=== PATIENT | male | born 1940 | race Caucasian/White ===

== ENCOUNTER 2024-02-10 17:40 | Emergency (ER) | payer MEDICARE, MEDICAID, SELFPAY ==
--- NOTE | ~2024-02-10 | CT_ITS ---
EXAMINATION: CT CHEST WITHOUT CONTRAST CLINICAL INFORMATION: Left-sided rib pain after fall COMPARISON: None available. TECHNIQUE: Multidetector volumetric CT imaging of the chest was done. Axial MIP volume rendering provided. Sagittal and coronal reformatted images were obtained. This CT examination was performed using dose optimization techniques as appropriate, variously including the following: *Automated exposure control *Adjustment of mA and/or kV according to patient size (this includes techniques or standardized protocols for targeted exams where dose is matched to indication/reason for exam; i.e. extremities or head) *Use of iterative reconstruction technique DLP: 333 mGy-cm FINDINGS: PRODUCT LEAD: Surgical clips are present in the upper abdomen. LUNGS: The lungs are clear with no evidence of inflammation or nodules. MEDIASTINUM: The mediastinum is normal. CORONARY ARTERY CALCIFICATION: Mild PLEURA: There is no pleural effusion. No pleural mass or thickening. AXILLA: No lymphadenopathy. UPPER ABDOMEN: Some minimal layering high density is seen at the gallbladder neck which could represent gallstones. Bilateral benign parapelvic Bosniak class I renal cysts are noted which require no additional imaging or follow-up. No solid renal masses are seen. OSSEOUS STRUCTURES: Unremarkable. CT/CT chest wo IV con IMPRESSION: 1. No evidence of a rib fracture. 2. Incidental note made of possible cholelithiasis and benign renal cysts. Fleischner guidelines were followed. Electronically signed by: Narciso Farley MD 02/10/2024 10:29 PM PRINCESS
--- NOTE | ~2024-02-10 | CT_ITS ---
EXAMINATION: CT HEAD WITHOUT CONTRAST CT CERVICAL SPINE WITHOUT CONTRAST CLINICAL INFORMATION: Unwitnessed fall. Head strike. COMPARISON: None available. TECHNIQUE: Contiguous axial imaging was performed from the skull base to vertex without intravenous administration of contrast. Contiguous axial imaging was performed from the upper chest through the skull base without intravenous administration of contrast. Coronal and sagittal reformats were obtained at the acquisition workstation. This CT examination was performed using dose optimization techniques as appropriate, variously including the following: *Automated exposure control. *Adjustment of mA and/or kV according to patient size (this includes techniques or standardized protocols for targeted exams where dose is matched to indication/reason for exam; i.e. extremities or head). *Use of iterative reconstruction technique. DLP: 1496 mGy-cm FINDINGS: Head: Chronic regions of encephalomalacia within the lateral right frontal lobe, parasagittal right occipital lobe, and anterior left temporal lobe with associated volume loss. 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 No additional loss of salguero-white matter differentiation. No evidence of acute intracranial hemorrhage. Scattered and partially confluent hypoattenuation in the periventricular and deep white matter are consistent with moderate microangiopathy. The ventricles are normal in morphology and size. No evidence for obstructive hydrocephalus. No abnormal mass effect or midline shift. No extra-axial fluid collections. No acute soft tissue or osseous abnormalities. Moderate mucosal thickening of the paranasal sinuses. The mastoid air cells and middle ear cavities are clear. Cerumen impaction of the external auditory canals bilaterally. Cervical Spine: The atlantooccipital and atlantoaxial articulations remain well aligned. Straightening of the normal cervical lordosis. Moderate degenerative retrolisthesis of C5 on C6. Otherwise, there is anatomic alignment of the vertebral bodies and posterior elements. No evidence of acute fracture or subluxation. 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 Ankylosis of the right C6-C7 facet joint. Degenerative loss of C4 and C5 vertebral body heights. The remaining vertebral body heights are maintained. Advanced degenerative disc disease at C3-C4 and C5-C6. Facet and uncovertebral joint arthropathy leads to osseous encroachment on the neural foramina from C3-C6. There is no prevertebral soft tissue swelling. There is a 1.8 cm hypoattenuating nodule in the left thyroid lobe. The remaining cervical soft tissues are within normal limits. The lung apices demonstrate no abnormalities. CT/CT head/brain wo IV con IMPRESSION: 1. No evidence of acute intracranial hemorrhage or edematous territorial infarction. 2. Chronic regions of encephalomalacia within the right frontal lobe, right occipital lobe, and anterior left temporal lobe. Moderate underlying microangiopathy and generalized cerebral volume loss. 3. No evidence of acute fracture or traumatic subluxation of the cervical spine. Moderate multilevel degenerative spondyloarthropathy of the cervical spine. 4. There is a 1.8 cm nodule in the left thyroid lobe. Recommend further characterization with thyroid ultrasound. Electronically signed by: Yogi Beltran DO 02/10/2024 09:12 PM [facility]
[2024-02-10 17:51] VITALS: BP 141/69; PULSE 69; O2SAT 100
[2024-02-10 17:56] VITALS: BP 141/69; PULSE 69; RESP 12; TEMP 36; O2SAT 100; BMI 23.0
--- NOTE | 2024-02-10 18:01 | ECG_ITS ---
Test Reason : FALL Blood Pressure : / mmHG Vent. Rate : 068 BPM Atrial Rate : 068 BPM P-R Int : 230 ms QRS Dur : 080 ms QT Int : 384 ms P-R-T Axes : 076 028 059 degrees QTc Int : 408 ms Sinus rhythm with 1st degree A-V block Otherwise normal ECG No previous ECGs available Referred By: Generic ED Physician Electronically Signed By:Jordy Clemons
[2024-02-10 18:38] LABS: Glucose, Whole Blood 128 mg/dL (60-115)
[2024-02-10 20:55] VITALS: BP 167/84; PULSE 71; RESP 16; TEMP 36.4; O2SAT 98
--- NOTE | 2024-02-10 21:19 | ED_ITS ---
HPI - General Adult General Chief complaint: Fall Stated complaint: FALL HEAD STRIK NEG THINNERS PER EMS Time Seen by Provider: 02/10/24 21:19 History of Present Illness ED Provider: Daniel CARRANZA narrative: The patient is an 83-year-old male with a history of significant dementia. He lives at the [facility]. Apparently he had a fall today in which he struck his head and had a small laceration to his occipital scalp. He was sent to the emergency room after the fall. The patient has been in his usual state of health earlier in the day. In fact his family had been visiting with him just a little while before the fall and he had seemed at his baseline. The patient indicates that he has some pain on his left chest. The patient is significantly demented and unable to give any additional history. The patient's son and daughter are at the bedside. The patient is minimally ambulatory at baseline. Related Data Allergies Allergy/AdvReac Type Severity Reaction Status Date / Time No Known Allergies Allergy Verified 02/10/24 18:00 Review of Systems 2 Review of Systems: Yes all other systems are reviewed and are negative [facility] Social History Social History Advance Directives: No Advance Directives Information Provided: No Do you have a plan to hurt others: No Plan Physical Exam ED Vital Signs: Vital Signs - 24 hr 02/10/24 17:56 02/10/24 20:55 Temperature 96.8 F 97.6 F Pulse Rate 69 71 Respiratory Rate 12 16 Blood Pressure 141/69 H 167/84 H Pulse Oximetry 100 98 Oxygen Delivery Method Room Air Room Air BMI result Body Mass Index 23.0 Const Other: The patient is a frail looking older man who was awake and seems alert although he seems quite demented. He does not seem in acute distress. HENMT Other: There is a 3 cm horizontally oriented laceration on the occipital scalp. It is not a very deep wound. It was not bleeding No raccoon eyes or main sign. No facial abnormalities. Mucous membranes are moist. Eyes Other: Pupils are round equal, conjunctivae clear, extraocular movements intact, no ocular trauma Neck Other: No definite C-spine tenderness. Evaluation is complicated by the patient's dementia. He has been wearing a C-collar initially. After removal of the collar he seemed to be moving his neck easily without pain. Chest Other: There is left-sided chest wall tenderness without crepitus or subcutaneous emphysema Resp Effort & Inspection: normal respiratory effort Auscultation: clear to auscultation bilaterally Cardio Rate: regular rate Rhythm: regular rhythm Heart sounds: S1 normal heart sound present and S2 normal heart sound present GI Other: Abdomen is soft and nontender Back/Spine/Pelvis Other: No midline vertebral tenderness in the back Skin Other: There is a 3 cm horizontally oriented fairly shallow laceration on the occipital scalp. No other injuries. The skin is otherwise unremarkable. Neuro Other: The patient is awake and alert. He seems pleasantly demented. Face is symmetrical. Speech is clear. He seems to have symmetrical strength in his extremities. He seems to be quite unsteady on his feet but that is baseline according to his family. Extrem Other: No signs of injury to the extremities Medical Decision Making Medical Decision Making MDM Narrative: The patient is a frail 83-year-old with a history of dementia who lives at a local longterm. He was found on the ground having fallen. He had a scalp laceration. He is complaining of some left-sided chest pain. CT scan of the head and the cervical spine are negative. He has a small laceration on the occipital scalp that was closed with Dermabond. A chest CT was done to evaluate his left-sided chest pain. This shows a single minimally displaced left-sided rib fracture. The patient was given a dose of acetaminophen. Basic labs are unremarkable. He will be discharged back to his longterm. Lab Data 02/10/24 22:50 02/10/24 22:50 Labs: Lab Results 02/10/24 02/10/24 Range/Units 18:34 22:50 WBC 8.7 (4.8-10.8) X10*3/uL RBC 5.11 (4.60-5.80) X10*6/uL Hgb 15.7 (14.0-18.0) g/dl Hct 46.6 (42.0-52.0) % MCV 91.2 (80.0-98.0) fL MCH 30.7 (27.0-33.0) pg MCHC 33.7 (31.0-36.0) g/dl RDW 12.1 (11.0-16.0) % Plt Count 142 L (160-400) X10*3/uL MPV 9.9 (9.4-12.4) fL Immature Gran % (Auto) 0.5 H (0.0-0.4) % Neut % (Auto) 81.7 H (45-73) % Lymph % (Auto) 10.6 L (20-40) % [place] % (Auto) 5.3 (2-11) % Eos % (Auto) 1.3 (0-4) % Baso % (Auto) 0.6 (0-2) % Lymph # (Auto) 0.9 L (1.2-4.9) X10*3/uL [place] # (Auto) 0.5 (0.1-1.2) X10*3/uL Eos # (Auto) 0.1 (0.0-0.4) X10*3/uL Baso # (Auto) 0.1 (0.0-0.2) X10*3/uL Abs Immat Gran (auto) 0.04 H (0.00-0.03) X10*3/uL Absolute Neuts (auto) 7.1 (2.0-8.3) x10*3/uL Absolute Nucleated RBC 0.000 (0.0-0.012) X10*3/uL Nucleated RBC % (auto) 0.0 (0.0-0.2) /100WBC Sodium 139 (135-145) mmol/L Potassium 4.6 (3.3-5.1) mmol/L Chloride 107 (96-108) mmol/L Carbon Dioxide 23 (22-29) mmol/L Anion Gap 14 (12-20) BUN 17 H (9-16) mg/dL Creatinine 0.95 (0.5-1.4) mg/dL Estim Creat Clear Calc 51.2 Estimated GFR > 60 POC Glucose 128 H (60-115) mg/dL Random Glucose 152 H (60-115) mg/dL Calcium 8.9 (8.4-10.2) mg/dL Discharge Plan Discharge Clinical Impression: Fall, Head injury, Laceration of scalp, Left rib fracture Patient Disposition: Home, Self-Care Additional Instructions: He had a negative CT scan of his head and his cervical spine. A CT scan of his chest shows a single left-sided nondisplaced rib fracture. He had a small laceration on the back of his scalp which was closed with glue. He will likely be complaining of some left-sided chest pain from the rib fracture. Please use acetaminophen as needed for the pain. I expect the scalp laceration to heal well without any additional care. Please monitor for any sign of infection. Please have him follow up with his regular doctor. Return to the emergency room if worse. Referrals: [facility] [Outside] (fall, scalp laceration, left rib fracture) Wilma Gan MD [Primary Care Provider] - Print Language: Djiboutian
[2024-02-10 22:53] LABS: MANUAL DIFF FLAG NO
[2024-02-10 22:54] LABS: Basophils Absolute Auto 0.1 X10*3/uL (0.0-0.2); Basophils Percent Auto 0.6 % (0-2); Eosinophils Absolute Auto 0.1 X10*3/uL (0.0-0.4); Eosinophils Percent Auto 1.3 % (0-4); Hematocrit 46.6 % (42.0-52.0); Hemoglobin 15.7 g/dl (14.0-18.0); Imm Gran Abs Auto 0.04 X10*3/uL (0.00-0.03); Imm Gran Pct Auto 0.5 % (0.0-0.4); Lymphocytes Absolute Auto 0.9 X10*3/uL (1.2-4.9); Lymphocytes Percent Auto 10.6 % (20-40); Mean Corpuscular HGB Conc 33.7 g/dl (31.0-36.0); Mean Corpuscular Hemoglobin 30.7 pg (27.0-33.0); Mean Corpuscular Volume 91.2 fL (80.0-98.0); Mean Platelet Volume 9.9 fL (9.4-12.4); Monocytes Absolute Auto 0.5 X10*3/uL (0.1-1.2); Monocytes Percent Auto 5.3 % (2-11); Neutrophils Absolute Auto 7.1 x10*3/uL (2.0-8.3); Neutrophils Percent Auto 81.7 % (45-73); Platelet Count 142 X10*3/uL (160-400); Red Blood Count 5.11 X10*6/uL (4.60-5.80); Red Cell Distribution Width 12.1 % (11.0-16.0); White Blood Count 8.7 X10*3/uL (4.8-10.8)
[2024-02-10 23:08] LABS: Anion Gap 14 (12-20); Blood Urea Nitrogen 17 mg/dL (9-16); Calcium 8.9 mg/dL (8.4-10.2); Carbon Dioxide 23 mmol/L (22-29); Chloride 107 mmol/L (96-108); Creatinine Clr Calc Pharmacy 51.2; Estimated Glomerular Filt Rate > 60; Glucose Random 152 mg/dL (60-115); Potassium 4.6 mmol/L (3.3-5.1); Sodium 139 mmol/L (135-145)
--- NOTE | 2024-02-11 00:07 | PC.NURSE ---
report called to sergei lopez RN. 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
[2024-02-11] MEDS: Acetaminophen 325 MG TABLET 975 MG PO (01:26)
[2024-02-11 01:56] VITALS: BP 123/64; PULSE 74; RESP 16; O2SAT 98
[2024-02-11 02:00] VITALS: BP 123/64; PULSE 74; RESP 16; TEMP 36.4; O2SAT 98
== END 2024-02-11 02:01 | disposition home or self-care (01) ==
PROVIDERS: Emergency Provider Emergency Medicine; PCP Internal Medicine
DX: S09.90XA Unspecified injury of head, initial encounter (principal); S01.01XA Laceration without foreign body of scalp, initial encounter; S22.32XA Fracture of one rib, left side, initial encounter for closed fracture; W19.XXXA Unspecified fall, initial encounter; R07.9 Chest pain, unspecified; F03.90 Unspecified dementia, unspecified severity, without behavioral disturbance, psychotic disturbance, mood disturbance, and anxiety; Y93.9 Activity, unspecified; Y92.129 Unspecified place in nursing home as the place of occurrence of the external cause; Y99.9 Unspecified external cause status
CPT/HCPCS: 12002; 36415; 70450; 71250; 72125; 80048; 82947; 85025; 93005; 99285

== ENCOUNTER → 2024-02-10 18:01 | Outpatient (BNV) | payer MEDICARE, MEDICAID, SELFPAY | PROVIDERS: Emergency Provider Emergency Medicine; PCP Internal Medicine; Visit Provider Internal Medicine Cardiovascular Disease | DX: I44.0 Atrioventricular block, first degree (principal) | CPT/HCPCS: 93010 ==

== ENCOUNTER 2024-06-20 12:36 | Emergency (ER) | payer MEDICARE, MEDICAID, SELFPAY ==
[2024-06-20 12:55] VITALS: BP 107/55; BP 118/58; PULSE 87; PULSE 94; RESP 18; TEMP 36; O2SAT 98; O2SAT 99; BMI 24.2
--- NOTE | 2024-06-20 12:59 | ED_ITS ---
HPI - General Adult General Chief complaint: Behavioral Concerns Stated complaint: COMBATIVE,TOUCHING STAFF/RESIDENTS INAPPROPRI @SNF Time Seen by Provider: 06/20/24 12:53 Source: patient, EMS, old records reviewed and cad technician Mode of arrival: EMS Limitations: no limitations History of Present Illness ED Provider: DR. 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 Patient had similar presentation and was presented to [facility] for behavior disturbance patient was prescribed Seroquel and olanzapine. Patient in the emergency department is redirectable, with no aggression or being combative. Patient is able to report no headache, chest pain, no abdominal pain. Related Data Allergies Allergy/AdvReac Type Severity Reaction Status Date / Time No Known Allergies Allergy Verified 06/20/24 12:57 Review of Systems 2 Review of Systems: All other systems are reviewed and are negative Constitutional: Reports as per HPI and Reports no additional constitutional complaints Eyes: Reports as per HPI and Reports no additional eye complaints Reports system reviewed and no additional complaints, except as documented Cardiovascular: Reports as per HPI and Reports no additional cardiovascular complaints Respiratory: Reports as per HPI and Reports no additional respiratory complaints Gastrointestinal: Reports as per HPI and Reports no additional gastrointestinal complaints Genitourinary: Reports no additional female genitourinary complaints Musculoskeletal: Reports no additional musculoskeletal complaints Skin/Breast: Reports system reviewed and no additional complaints, except as docu Psychiatric: Reports no additional psychiatric complaints Endocrine: Reports no additional endocrine complaints Hematologic/Lymphatic: Reports no additional hematologic/lymphatic complaints Allergic/Immunologic: Reports no additional allergic/immunologic complaints Reports system reviewed and no additional complaints, except as documented and Reports Abnormal speech present [facility] Social History Social History Smoked in Last 30 Days: No Advance Directives: No Advance Directives Information Provided: No Physical Exam ED Vital Signs: Vital Signs - 24 hr 06/20/24 12:55 Temperature 96.8 F Pulse Rate 87 Respiratory Rate 18 Blood Pressure 107/55 L Pulse Oximetry 99 Oxygen Delivery Method Room Air BMI result Body Mass Index 24.2 Vital signs have been reviewed and appear to be correct. Blood pressure elevated. Heart rate normal. Respiratory rate normal. Temperature normal. Oxygen saturation normal. Appearance: Alert. Oriented x1 only place, No acute distress. Head: Normal external exam. Normocephalic. Atraumatic. No Gomez signs noted. No raccoon eyes noted Eyes: PERRLA. EOMI. Conjunctiva and sclera normal. Eyelids normal. ENT: TM's Normal. Pharynx normal. Uvula midline. Moist mucous membranes. No trismus noted. No drooling noted. No muffled voice noted. Neck: Normal inspection. Neck supple. FROM. No adenopathy. Thyroid Normal. No meningeal signs. No neck mass noted. CVS: Normal heart rate and rhythm. Heart sound normal. No murmurs noted. Pulses normal throughout. Respiratory: No respiratory distress. Painless inspiration. Breath sounds normal. No wheezes/rales/rhonchi noted. Chest nontender. No accessory muscle usage noted or decreased air movement noted. Abdomen: Soft and nontender. Bowel sounds normal in all 4 quadrants. No distention noted. No organomegaly noted. No visible injury noted. Back: No CVA tenderness. Full range of motion noted. Skin: Skin warm and dry. Normal skin color. Normal skin turgor. No rashes/lesions/lacerations noted. Extremities: No lower extremity edema. Extremities exhibit normal range of motion. Extremities nontender. Neuro: Oriented X 1 Cranial nerve exam: II-XII are grossly intact No motor deficit. No sensory deficit. Reflexes normal. Course Reevaluation(s) Reevaluation #1: Medically cleared, patient is been calm and redirectable, patient can go back to [facility] to the dementia unit, patient was prescribed PRN olanzapine and Seroquel. Time: 17:07 Medical Decision Making Differential Diagnosis Differential Diagnoses: The differential diagnosis associated with the presentation includes (Dementia, UTI, electrolyte derangement, severe anemia) Admission/Observation Consideration of admission/observation: Escalation of care including admission/observation considered Lab Data MDM Lab Attestation statement: I reviewed the patient's lab results. 06/20/24 13:05 06/20/24 13:05 Labs: Lab Results 06/20/24 06/20/24 Range/Units 13:05 16:28 WBC 4.7 L (4.8-10.8) X10*3/uL RBC 4.66 (4.60-5.80) X10*6/uL Hgb 14.4 (14.0-18.0) g/dl Hct 44.0 (42.0-52.0) % MCV 94.4 (80.0-98.0) fL MCH 30.9 (27.0-33.0) pg MCHC 32.7 (31.0-36.0) g/dl RDW 12.8 (11.0-16.0) % Plt Count 136 L (160-400) X10*3/uL MPV 10.0 (9.4-12.4) fL Immature Gran % (Auto) 0.8 H (0.0-0.4) % Neut % (Auto) 49.8 (45-73) % Lymph % (Auto) 32.3 (20-40) % [place] % (Auto) 9.9 (2-11) % Eos % (Auto) 5.9 H (0-4) % Baso % (Auto) 1.3 (0-2) % Lymph # (Auto) 1.5 (1.2-4.9) X10*3/uL [place] # (Auto) 0.5 (0.1-1.2) X10*3/uL Eos # (Auto) 0.3 (0.0-0.4) X10*3/uL Baso # (Auto) 0.1 (0.0-0.2) X10*3/uL Abs Immat Gran (auto) 0.04 H (0.00-0.03) X10*3/uL Absolute Neuts (auto) 2.4 (2.0-8.3) x10*3/uL Absolute Nucleated RBC 0.000 (0.0-0.012) X10*3/uL Nucleated RBC % (auto) 0.0 (0.0-0.2) /100WBC Sodium 138 (135-145) mmol/L Potassium 4.2 (3.3-5.1) mmol/L Chloride 108 (96-108) mmol/L Carbon Dioxide 22 (22-29) mmol/L Anion Gap 12 (12-20) BUN 19 H (9-16) mg/dL Creatinine 1.00 (0.5-1.4) mg/dL Estim Creat Clear Calc 44.2 Estimated GFR > 60 Random Glucose 217 H (60-115) mg/dL Calcium 8.4 (8.4-10.2) mg/dL Total Bilirubin 0.4 (0.0-1.0) mg/dL Direct Bilirubin 0.1 (0.0-0.5) mg/dL AST 25 (5-37) U/L ALT 19 (0-40) U/L Alkaline Phosphatase 71 (39-117) U/L Total Protein 6.2 L (6.5-8.0) g/dL Albumin 3.3 L (3.5-5.0) g/dL Lipase 28 (8-78) U/L Urine Color Yellow Urine Appearance Clear Urine pH 7.0 (5.0-9.0) Ur Specific [place] 1.025 (1.005-1.025) Urine Protein Negative (Neg-Trace) mg/dL Urine Glucose (UA) 500 H (Negative) mg/dL Urine Ketones Trace (Negative) mg/dL Urine Blood Negative (Negative) Urine Nitrite Negative (Negative) Ur Leukocyte Esterase Negative (Negative) Discharge Plan Discharge Clinical Impression: Dementia, Acute anxiety Patient Disposition: Xfer [facility] Print Language: Kosovan
[2024-06-20 13:09] LABS: MANUAL DIFF FLAG NO
[2024-06-20 13:12] LABS: Basophils Absolute Auto 0.1 X10*3/uL (0.0-0.2); Basophils Percent Auto 1.3 % (0-2); Eosinophils Absolute Auto 0.3 X10*3/uL (0.0-0.4); Eosinophils Percent Auto 5.9 % (0-4); Hemoglobin 14.4 g/dl (14.0-18.0); Imm Gran Abs Auto 0.04 X10*3/uL (0.00-0.03); Imm Gran Pct Auto 0.8 % (0.0-0.4); Lymphocytes Absolute Auto 1.5 X10*3/uL (1.2-4.9); Lymphocytes Percent Auto 32.3 % (20-40); Mean Corpuscular HGB Conc 32.7 g/dl (31.0-36.0); Mean Corpuscular Hemoglobin 30.9 pg (27.0-33.0); Mean Corpuscular Volume 94.4 fL (80.0-98.0); Monocytes Absolute Auto 0.5 X10*3/uL (0.1-1.2); Monocytes Percent Auto 9.9 % (2-11); Neutrophils Absolute Auto 2.4 x10*3/uL (2.0-8.3); Neutrophils Percent Auto 49.8 % (45-73); Platelet Count 136 X10*3/uL (160-400); Red Blood Count 4.66 X10*6/uL (4.60-5.80); Red Cell Distribution Width 12.8 % (11.0-16.0); White Blood Count 4.7 X10*3/uL (4.8-10.8)
[2024-06-20 13:35] LABS: Alanine Aminotransferase 19 U/L (0-40); Albumin Level 3.3 g/dL (3.5-5.0); Alkaline Phosphatase 71 U/L (39-117); Anion Gap 12 (12-20); Aspartate Amino Transferase 25 U/L (5-37); Bilirubin Direct 0.1 mg/dL (0.0-0.5); Bilirubin Total 0.4 mg/dL (0.0-1.0); Blood Urea Nitrogen 19 mg/dL (9-16); Calcium 8.4 mg/dL (8.4-10.2); Carbon Dioxide 22 mmol/L (22-29); Chloride 108 mmol/L (96-108); Creatinine Clr Calc Pharmacy 44.2; Estimated Glomerular Filt Rate > 60; Glucose Random 217 mg/dL (60-115); Lipase 28 U/L (8-78); Potassium 4.2 mmol/L (3.3-5.1); Sodium 138 mmol/L (135-145); Total Protein 6.2 g/dL (6.5-8.0)
--- NOTE | 2024-06-20 13:51 | MHC.EDTECH ---
I place male helga on the patient he tolerated very well, he resting quietly on his bed with the call lao in his reach
--- OUTSIDE RECORDS SUMMARY | 2024-06-20 16:33 | XMS_ITS | Clinical Summary ---
Author Organization [address] [facility] Address [address] [place] [address] Phone Care Team Providers Care Waste Cotton Cleaner Name Role Phone Wilma Gan MD Primary Care Provider [phone] Encounters Date Type Department Care Team Description 06/19/2024 Lab Requisition [facility] - Main Lab 299 [facility] [employer] [place] [address] Aravind Gray MD Type 2 diabetes mellitus without complications (CMS/HCC V24, CMS/HCC V28) from Last 3 Months Social History Tobacco Use Types Packs/Day Years Used Date Smoking Tobacco: Never Assessed Sex and Gender Information Value Date Recorded Sex Assigned at Not on file Legal Sex Male 8:51 PM EST Gender Identity Not on file Sexual Orientation Not on file Plan of Treatment Health Maintenance Due Date Last Done Comments Diabetes: Annual Foot Exam 1950 Diabetes: Annual Retina Eye Exam 1950 DTaP,Tdap,and Td Vaccines (1 - Tdap) 1959 Pneumococcal Vaccine: 50+ Years (1 of 2 - PCV) 1959 Zoster Vaccines (1 of 2) 1990 RSV Immunization Adult Patients (1 - 1-dose 75+ series) 2015 Cholesterol Screening (Lipid Panel) 03/31/2023 Depression Screening 03/31/2023 Falls Risk Assessment 03/31/2023 Medicare Annual Wellness Visit 03/31/2023 Social Influencers of Health Screening 03/31/2023 COVID-19 Vaccine ( - season) 2023 Diabetes: Annual Urine Albumin-Creatinine Ratio (uACR) 06/19/2024 Diabetes: Blood Sugar Control Test (HGBA1C) 07/15/2024 01/16/2024 Influenza Vaccine (Season Ended) 2024 Diabetes: Annual GFR (Glomerular Filtration Rate) 06/19/2025 06/19/2024, 03/05/2024, 01/30/2024, Additional history exists HIB Vaccines Aged Out No longer eligi ble based on patient's age to complete this topic HPV Vaccines Aged Out No longer eligi ble based on patient's age to complete this topic Hepatitis A Vaccines Aged Out No long er eligible based on patient's age to complete this topic Hepatitis B Vaccines Aged Out No long er eligible based on patient's age to complete this topic IPV Vaccines Aged Out No longer eligi ble based on patient's age to complete this topic MMR Vaccines Aged Out No longer eligi ble based on patient's age to complete this topic Meningococcal ACWY Vaccine Aged Out N o longer eligible based on patient's age to complete this topic Meningococcal B Vaccine Aged Out No l onger eligible based on patient's age to complete this topic RSV Immunization Patients Under 20 months Aged Out No longer eligible based on patient's age to complete this topic Varicella Vaccines Aged Out No longer eligible based on patient's age to complete this topic Procedures Procedure Name Priority Date/Time Associated Diagnosis Comments RED - PLAIN Routine 06/19/2024 5:12 AM EDT Type 2 diabetes mellitus without complications (CMS/HCC V24, CMS/HCC V28) VALPROIC ACID LEVEL, TOTAL Routine 06/19/2024 5:12 AM EDT Type 2 diabetes mellitus without complications (CMS/HCC V24, CMS/HCC V28) COMPREHENSIVE METABOLIC PANEL Routine 06/19/2024 5:12 AM EDT Type 2 diabetes mellitus without complications (CMS/HCC V24, CMS/HCC V28) HEMOGLOBIN A1C Routine 01/16/2024 6:54 AM EST Type 2 diabetes mellitus without complications (CMS/HCC) from Last 3 Months or Most Recently Relevant to Health Maintenance Results * Red tube (06/19/2024 5:12 AM EDT) Extra Tube Hold for add-ons. 06/19/2024 11:01 AM EDT [facility] Comment:Auto resulted. Blood Venous blood specimen / Unknown Venipuncture / Unknown 06/19/2024 5:12 AM EDT 06/19/2024 9:33 AM EDT us Aravind Gray MD LAB BLOOD ORDERABLES Final Resul t Performing Organization Address [facility] Co de Phone Number [facility] [address] [place] [address], [place] [phone] * (ABNORMAL) Valproic acid level, total (06/19/2024 5:12 AM EDT) Pathologist [facility] Valproic Acid, Total 31(L) 50 - 100 mcg/mL LAB CHEMISTRY METHOD 06/19/2024 11:22 AM EDT [facility] Blood Venous blood specimen / Unknown Venipuncture / Unknown 06/19/2024 5:12 AM EDT 06/19/2024 9:33 AM EDT us Aravind Gray MD LAB BLOOD ORDERABLES Final Resul t Performing Organization Address [facility] de Phone Number [facility] [address] [place] [address], [place] [phone] * (ABNORMAL) Comprehensive metabolic panel (06/19/2024 5:12 AM EDT) Pathologist [facility] Sodium 138 133 - 145 mmol/L LAB CHEMISTRY METHOD 06/19/2024 11:24 AM EDT [facility] Potassium 4.0 3.5 - 5.5 mmol/L LAB CHEMISTRY METHOD 06/19/2024 11:24 AM EDT [facility] Chloride 107 96 - 110 mmol/L LAB CHEMISTRY METHOD 06/19/2024 11:24 AM EDT [facility] CO2 25 21 - 32 mmol/L LAB CHEMISTRY METHOD 06/19/2024 11:24 AM EDT [facility] Anion Gap 6 3 - 11 LAB CHEMISTRY METHOD 06/19/2024 11:24 AM [facility] Glucose 75 70 - 100 mg/dL LAB CHEMISTRY METHOD 06/19/2024 11:24 AM [facility] BUN 19 5 - 25 mg/dL LAB CHEMISTRY METHOD 06/19/2024 11:24 AM [facility] Creatinine 0.93 0.70 - 1.30 mg/dL LAB CHEMISTRY METHOD 06/19/2024 11:24 AM [facility] eGFR 81 >=60 mL/min/1. 73m2 LAB CHEMISTRY METHOD 06/19/2024 11:24 AM [facility] Comment:Calculation based on the??Chronic Kidney Disease Epidemiology Collaboration (CKD-EPI) equation refit??without adjustment for race. BUN/Creatinine Ratio 20.4 LAB CHEMISTRY METHOD 06/19/2024 11:24 AM [facility] Calcium 8.4(L) 8.5 - 10.5 mg/dL LAB CHEMISTRY METHOD 06/19/2024 11:24 AM [facility] AST (SGOT) 12 10 - 42 unit/L LAB CHEMISTRY METHOD 06/19/2024 11:24 AM [facility] ALT (SGPT) 21 10 - 60 unit/L LAB CHEMISTRY METHOD 06/19/2024 11:24 AM [facility] Alkaline Phosphatase 74 42 - 121 unit/L LAB CHEMISTRY METHOD 06/19/2024 11:24 AM [facility] Total Protein 6.0 6.0 - 8.0 g/dL LAB CHEMISTRY METHOD 06/19/2024 11:24 AM [facility] Albumin 3.0(L) 3.2 - 5.0 g/dL LAB CHEMISTRY METHOD 06/19/2024 11:24 AM [facility] Total Bilirubin 0.5 0.0 - 1.4 mg/dL LAB CHEMISTRY METHOD 06/19/2024 11:24 AM [facility] Blood Venous blood specimen / Unknown Venipuncture / Unknown 06/19/2024 5:12 AM EDT 06/19/2024 9:33 AM EDT us Aravind Gray MD LAB BLOOD ORDERABLES Final Resul t Performing Organization Address [facility]/ZIP Co de Phone Number [facility] [address] [place] [address], [place] [phone] * Hemoglobin A1c (01/16/2024 6:54 AM EST) Hemoglobin A1C 5.4 <6.5 % LAB CHEMISTRY METHOD 01/16/2024 2:48 PM EST [facility] Mean Bld Glu Estim. 108 mg/dL LAB CHEMISTRY METHOD 01/16/2024 2:48 PM EST [facility] Blood Venous blood specimen / Unknown Venipuncture / Unknown 01/16/2024 6:54 AM EST 01/16/2024 8:43 AM EST us Wilma Gan MD LAB BLOOD ORDERABLES Final Res ult Performing Organization Address City/[facility]/ZIP Co de Phone Number [facility] [address] [place] [address], [place] [phone] from Last 3 Months or Most Recently Relevant to Health Maintenance Insurance MEDICARE [place]ICA[place] - [place] Care Teams Waste Cotton Cleaner Relationship Specialty Start Date End Date Wilma Gan MD [address] [place] [phone] PCP - General Internal Medicine 01/26/24
--- OUTSIDE RECORDS SUMMARY | 2024-06-20 16:33 | XMS_ITS | Encounter Summary ---
Author Organization [employer] [facility] Address [address] [place] [id number] Care Team Providers Care Hatchery Employee Name Role Phone Wilma Gan MD Primary Care Provider [phone] Encounter Details Date Type Department Care Team (Latest Contact Info) Description 01/12/2024 Lab Requisition [facility] - Main Lab [address] [facility] [place] [address] Wilma Gan MD [address] [place] [address] [phone] Type 2 diabetes mellitus without complications (CMS/HCC V24, CMS/HCC V28) Social History Tobacco Use Types Packs/Day Years Used Date Smoking Tobacco: Never Assessed Sex and Gender Information Value Date Recorded Sex Assigned at Not on file Legal Sex Male 8:51 PM EST Gender Identity Not on file Sexual Orientation Not on file documented as of this encounter Plan of Treatment Not on file documented as of this encounter Visit Diagnoses Diagnosis Type 2 diabetes mellitus without complications (CMS/HCC V24, CMS/HCC V28) documented in this encounter Care Teams Hatchery Employee Relationship Specialty Start Date End Date Wilma Gan MD [address] [place] [address] [phone] PCP - General Internal Medicine 01/26/24 documented as of this encounter
--- OUTSIDE RECORDS SUMMARY | 2024-06-20 16:33 | XMS_ITS | Encounter Summary ---
Author Organization [employer] Address [address] [place] [address] Care Team Providers Care Machinery Mover Name Role Phone Wilma Gan MD Primary Care Provider [phone] Encounter Details Date Type Department Care Team (Latest Contact Info) Description 01/16/2024 Lab Requisition [facility] - Main Lab [address] [place] [address] Wilma Gan MD [address] [place] [id number] Type 2 diabetes mellitus without complications (CMS/HCC [...] on file documented as of this encounter Procedures Procedure Name Priority Date/Time Associated Diagnosis Comments COMPLETE BLOOD COUNT Routine 01/16/2024 6:54 AM EST Type 2 diabetes mellitus without complications (CMS/HCC) HEMOGLOBIN A1C Routine 01/16/2024 6:54 AM EST Type 2 diabetes mellitus without complications (CMS/HCC) VITAMIN B12 Routine 01/16/2024 6:54 AM EST Type 2 diabetes mellitus without complications (CMS/[facility]) documented in this encounter Results * Hemoglobin A1c (01/16/2024 6:54 AM EST) Hemoglobin A1C 5.4 <6.5 % LAB CHEMISTRY METHOD 01/16/2024 2:48 PM EST [facility] ([facility] Mean Bld Glu Estim. 108 mg/dL LAB CHEMISTRY METHOD 01/16/2024 2:48 PM EST [facility] Blood Venous blood specimen / Unknown Venipuncture / Unknown 01/16/2024 6:54 AM EST 01/16/2024 8:43 AM EST us Wilma Gan MD LAB BLOOD ORDERABLES Final Res ult Performing Organization Address City/[facility]/ZIP Co de Phone Number [facility] [address] [place] [address], [place] [phone] * Vitamin B12 (01/16/2024 6:54 AM EST) [facility] Vitamin B-12 534 250 - 900 pcg/mL LAB CHEMISTRY METHOD 01/16/2024 10:47 AM EST [facility] Blood Venous blood specimen / Unknown Venipuncture / Unknown 01/16/2024 6:54 AM EST 01/16/2024 8:43 AM EST us Wilma Gan MD LAB BLOOD ORDERABLES Final Res ult Performing Organization Address [facility]/ZIP Co de Phone Number [facility] [address] [place] [address], [place] [phone] * (ABNORMAL) Complete blood count (01/16/2024 6:54 AM EST) [facility] WBC 5.3 4.8 - 10.8 K/mcL LAB HEMETOLOGY METHOD 01/16/2024 9:41 AM EST [facility] RBC 4.80 4.50 - 5.50 M/[facility] LAB HEMETOLOGY METHOD 01/16/2024 9:41 AM EST [facility] Hemoglobin 14.9 13.5 - 17.5 g/dL LAB HEMETOLOGY METHOD 01/16/2024 9:41 AM EST [facility] Hematocrit 44.4 42.0 - 54.0 % LAB HEMETOLOGY METHOD 01/16/2024 9:41 AM [facility] MCV 91.7 79.0 - 98.0 FL LAB HEMETOLOGY METHOD 01/16/2024 9:41 AM [facility] MCH 30.8 27.0 - 32.0 pcg LAB HEMETOLOGY METHOD 01/16/2024 9:41 AM [facility] MCHC 33.6 32.0 - 37.0 g/dL LAB HEMETOLOGY METHOD 01/16/2024 9:41 AM [facility] RDW 12.2 11.0 - 15.0 % LAB HEMETOLOGY METHOD 01/16/2024 9:41 AM [facility] Platelets 150 130 - 400 K/mcL LAB HEMETOLOGY METHOD 01/16/2024 9:41 AM [facility] MPV 11.2(H) 7.0 - 11.0 FL LAB HEMETOLOGY METHOD 01/16/2024 9:41 AM [facility] NRBC 0.0 <1.0 % LAB HEMETOLOGY METHOD 01/16/2024 9:41 AM [facility] NRBC Absolute 0.00 <0.10 K/mcL LAB HEMETOLOGY METHOD 01/16/2024 9:41 AM [facility] Blood Venous blood specimen / Unknown Venipuncture / Unknown 01/16/2024 6:54 AM EST 01/16/2024 8:43 AM EST us Wilma Gan MD LAB BLOOD ORDERABLES Final Res ult [facility] [address] [place] [address], documented in this encounter Visit Diagnoses Diagnosis Type 2 diabetes mellitus without complications (CMS/HCC V24, CMS/HCC V28) documented in this encounter Care Teams Machinery Mover Relationship Specialty Start Date End Date Wilma Gan MD [address] [place] [phone] PCP - General Internal Medicine 01/26/24 documented as of this encounter
--- OUTSIDE RECORDS SUMMARY | 2024-06-20 16:33 | XMS_ITS | Encounter Summary ---
Author Organization [facility] Address [address] [place] [address] Care Team Providers Care Senior Editor Name Role Phone Wilma Gan MD Primary Care Provider [phone] Encounter Details Date Type Department Care Team (Late st Contact Info) Description 01/30/[address] [facility] - Main Lab [address] [place] [address] Wilma Gan MD [address] [place] [phone] Chronic kidney disease, stage 3 unspecified (CMS/HCC V24, CMS/HCC V28) Social History Tobacco [...] Associated Diagnosis Comments COMPLETE BLOOD COUNT Routine 01/30/2024 7:21 AM EST Chronic kidney disease, stage 3 unspecified (CMS/HCC) COMPREHENSIVE METABOLIC PANEL Routine 01/30/2024 7:21 AM EST Chronic kidney disease, stage 3 unspecified (CMS/HCC) documented in this encounter Results * (ABNORMAL) Comprehensive metabolic panel (01/30/2024 7:21 AM EST) Sodium 143 133 - 145 mmol/L LAB CHEMISTRY METHOD 01/30/2024 9:05 AM EST [facility] Potassium 4.1 3.5 - 5.5 mmol/L LAB CHEMISTRY METHOD 01/30/2024 9:05 AM [facility] Chloride 113(H) 96 - 110 mmol/L LAB CHEMISTRY METHOD 01/30/2024 9:05 AM [facility] CO2 27 21 - 32 mmol/L LAB CHEMISTRY METHOD 01/30/2024 9:05 AM [facility] Anion Gap 3 3 - 11 LAB CHEMISTRY METHOD 01/30/2024 9:05 AM [facility] Glucose 102(H) 70 - 100 mg/dL LAB CHEMISTRY METHOD 01/30/2024 9:05 AM [facility] BUN 19 5 - 25 mg/dL LAB CHEMISTRY METHOD 01/30/2024 9:05 AM [facility] Creatinine 1.07 0.70 - 1.30 mg/dL LAB CHEMISTRY METHOD 01/30/2024 9:05 AM [facility] eGFR 69 >=60 mL/min/1. 73m2 LAB CHEMISTRY METHOD 01/30/2024 9:05 AM [facility] Comment:Calculation based on the??Chronic Kidney Disease Epidemiology Collaboration (CKD-EPI) equation refit??without adjustment for race. BUN/Creatinine Ratio 17.8 LAB CHEMISTRY METHOD 01/30/2024 9:05 AM [facility] Calcium 8.8 8.5 - 10.5 mg/dL LAB CHEMISTRY METHOD 01/30/2024 9:05 AM [facility] AST (SGOT) 15 10 - 42 unit/L LAB CHEMISTRY METHOD 01/30/2024 9:05 AM [facility] ALT (SGPT) 30 10 - 60 unit/L LAB CHEMISTRY METHOD 01/30/2024 9:05 AM [facility] Alkaline Phosphatase 80 42 - 121 unit/L LAB CHEMISTRY METHOD 01/30/2024 9:05 AM [facility] Total Protein 6.6 6.0 - 8.0 g/dL LAB CHEMISTRY METHOD 01/30/2024 9:05 AM [facility] Albumin 3.3 3.2 - 5.0 g/dL LAB CHEMISTRY METHOD 01/30/2024 9:05 AM [facility] Total Bilirubin 0.5 0.0 - 1.4 mg/dL LAB CHEMISTRY METHOD 01/30/2024 9:05 AM [facility] Blood Venous blood specimen / Unknown Venipuncture / Unknown 01/30/2024 7:21 AM EST 01/30/2024 8:10 AM EST us Wilma Gan MD LAB BLOOD ORDERABLES Final Res ult [facility] [address] [place] [address], [place] [phone] * (ABNORMAL) Complete blood count (01/30/2024 7:21 AM EST) WBC 4.3(L) 4.8 - 10.8 K/mcL LAB HEMETOLOGY METHOD 01/30/2024 8:58 AM [facility] RBC 4.80 4.50 - 5.50 M/[facility] LAB HEMETOLOGY METHOD 01/30/2024 8:58 AM [facility] Hemoglobin 14.4 13.5 - 17.5 g/dL LAB HEMETOLOGY METHOD 01/30/2024 8:58 AM [facility] Hematocrit 44.7 42.0 - 54.0 % LAB HEMETOLOGY METHOD 01/30/2024 8:58 AM [facility] MCV 93.5 79.0 - 98.0 FL LAB HEMETOLOGY METHOD 01/30/2024 8:58 AM [facility] MCH 30.1 27.0 - 32.0 pcg LAB HEMETOLOGY METHOD 01/30/2024 8:58 AM [facility] MCHC 32.2 32.0 - 37.0 g/dL LAB HEMETOLOGY METHOD 01/30/2024 8:58 AM EST [facility] RDW 12.1 11.0 - 15.0 % LAB HEMETOLOGY METHOD 01/30/2024 8:58 AM EST [facility] Platelets 152 130 - 400 K/mcL LAB HEMETOLOGY METHOD 01/30/2024 8:58 AM EST [facility] MPV 10.6 7.0 - 11.0 FL LAB HEMETOLOGY METHOD 01/30/2024 8:58 AM EST [facility] NRBC 0.0 <1.0 % LAB HEMETOLOGY METHOD 01/30/2024 8:58 AM EST [facility] NRBC Absolute 0.00 <0.10 K/mcL LAB HEMETOLOGY METHOD 01/30/2024 8:58 AM [facility] Blood Venous blood specimen / Unknown Venipuncture / Unknown 01/30/2024 7:21 AM EST 01/30/2024 8:10 AM EST us Wilma Gan MD LAB BLOOD ORDERABLES Final Res ult [facility] [address] [place] [address], documented in this encounter Visit Diagnoses Diagnosis Chronic kidney disease, stage 3 unspecified (CMS/HCC V24, CMS/HCC V28) documented in this encounter Care Teams Senior Editor Relationship Specialty Start Date End Date Wilma Gan MD [address] [place] [phone] PCP - General Internal Medicine 01/26/24 documented as of this encounter
--- OUTSIDE RECORDS SUMMARY | 2024-06-20 16:33 | XMS_ITS | Encounter Summary ---
Author Organization [facility] Address [address] [place] [address] Care Team Providers Care Wicker Molded Candles Name Role Phone Wilma Gan MD Primary Care Provider [phone] Encounter Details Date Type Department Care Team (Late st Contact Info) Description 06/19/2024 Lab Requisition [facility] - Main Lab 299 [facility] [place] [address] Aravind Gray MD [address] [place] [address] Type 2 diabetes mellitus without complications (CMS/HCC [...] V24, CMS/HCC V28) documented in this encounter Results * Red tube (06/19/2024 5:12 AM EDT) Extra Tube Hold for add-ons. 06/19/2024 11:01 AM EDT [facility] Comment:Auto resulted. Blood Venous blood specimen / Unknown Venipuncture / Unknown 06/19/2024 5:12 AM EDT 06/19/2024 9:33 AM EDT us Aravind Gray MD LAB BLOOD ORDERABLES Final Resul t Performing Organization Address [facility]/ZIP Co de Phone Number [facility] [address] [place] [address], [place] [phone] * (ABNORMAL) Valproic acid level, total (06/19/2024 5:12 AM EDT) [facility] Valproic Acid, Total 31(L) 50 - 100 mcg/mL LAB CHEMISTRY METHOD 06/19/2024 11:22 AM EDT [facility] Blood Venous blood specimen / Unknown Venipuncture / Unknown 06/19/2024 5:12 AM EDT 06/19/2024 9:33 AM EDT us Aravind Gray MD LAB BLOOD ORDERABLES Final Resul t Performing Organization Address [facility] de Phone Number [facility] [address] [place] [address], [place] [phone] * (ABNORMAL) Comprehensive metabolic panel (06/19/2024 5:12 AM EDT) [facility] Sodium 138 133 - 145 mmol/L LAB CHEMISTRY METHOD 06/19/2024 11:24 AM EDT [facility] Potassium 4.0 3.5 - 5.5 mmol/L LAB CHEMISTRY METHOD 06/19/2024 11:24 AM EDT [facility] Chloride 107 96 - 110 mmol/L LAB CHEMISTRY METHOD 06/19/2024 11:24 AM EDT [facility] CO2 25 21 - 32 mmol/L LAB CHEMISTRY METHOD 06/19/2024 11:24 AM [facility] Anion Gap 6 3 - 11 LAB CHEMISTRY METHOD 06/19/2024 11:24 AM [facility] Glucose 75 70 - 100 mg/dL LAB CHEMISTRY METHOD 06/19/2024 11:24 AM [facility] BUN 19 5 - 25 mg/dL LAB CHEMISTRY METHOD 06/19/2024 11:24 AM [facility] Creatinine 0.93 0.70 - 1.30 mg/dL LAB CHEMISTRY METHOD 06/19/2024 11:24 AM [facility] eGFR 81 >=60 mL/min/1. 73m2 LAB CHEMISTRY METHOD 06/19/2024 11:24 AM [facility] Comment:Calculation based on the??Chronic Kidney Disease Epidemiology Collaboration (CKD-EPI) equation refit??without adjustment for race. BUN/Creatinine Ratio 20.4 LAB CHEMISTRY METHOD 06/19/2024 11:24 AM [facility] Calcium 8.4(L) 8.5 - 10.5 mg/dL LAB CHEMISTRY METHOD 06/19/2024 11:24 AM [facility] AST (SGOT) 12 10 - 42 unit/L LAB CHEMISTRY METHOD 06/19/2024 11:24 AM [facility] ALT (SGPT) 21 10 - 60 unit/L LAB CHEMISTRY METHOD 06/19/2024 11:24 AM [facility] Alkaline Phosphatase 74 42 - 121 unit/L LAB CHEMISTRY METHOD 06/19/2024 11:24 AM [facility] Total Protein 6.0 6.0 - 8.0 g/dL LAB CHEMISTRY METHOD 06/19/2024 11:24 AM [facility] Albumin 3.0(L) 3.2 - 5.0 g/dL LAB CHEMISTRY METHOD 06/19/2024 11:24 AM [facility] Total Bilirubin 0.5 0.0 - 1.4 mg/dL LAB CHEMISTRY METHOD 06/19/2024 11:24 AM EDT [facility] Blood Venous blood specimen / Unknown Venipuncture / Unknown 06/19/2024 5:12 AM EDT 06/19/2024 9:33 AM EDT us Aravind Gray MD LAB BLOOD ORDERABLES Final Resul t [facility] [address] [place] [address], documented in this encounter Visit Diagnoses Diagnosis Type 2 diabetes mellitus without complications (CMS/HCC V24, CMS/HCC V28) documented in this encounter Care Teams Wicker Molded Candles Relationship Specialty Start Date End Date Wilma Gan MD [address] [place] [id number] PCP - General Internal Medicine 01/26/24 documented as of this encounter
--- OUTSIDE RECORDS SUMMARY | 2024-06-20 16:33 | XMS_ITS | Encounter Summary ---
Author Organization [facility] Address [address] [place] [address] Care Team Providers Care Pediatric Physician Assistant Name Role Phone Wilma Gan MD Primary Care Provider [phone] Encounter Details Date Type Department Care Team (Late st Contact Info) Description 01/24/2024 Lab Requisition [facility] - Main Lab [address] [place] [address] Wilma Gan MD [address] [place] [id number] Unspecified abdominal pain Social History Tobacco Use Types Packs/Day Years [...] Procedure Name Priority Date/Time Associated Diagnosis Comments URINALYSIS WITH REFLEX MICROSCOPIC Routine 01/23/2024 10:00 PM EST Unspecified abdominal pain URINALYSIS WITH REFLEX MICROSCOPIC Routine 01/23/2024 10:00 PM EST Unspecified abdominal pain CULTURE URINE Routine 01/23/2024 10:00 PM EST Unspecified abdominal pain documented in this encounter Results * (ABNORMAL) Urinalysis with reflex microscopic (01/23/2024 10:00 PM EST) Specific [place] Urine 1.027 1.003 - 1.030 LAB URINALYSIS - AUTOMATED METHOD 01/24/2024 11:37 AM EST [facility] pH, Urine 6.0 5.0 - 8.0 pH LAB URINALYSIS - AUTOMATED METHOD 01/24/2024 11:37 AM [facility] Leukocytes, Urine Large(A) Negative LAB URINALYSIS - AUTOMATED METHOD 01/24/2024 11:37 AM [facility] Nitrite, Urine Positive(A) Negative LAB URINALYSIS - AUTOMATED METHOD 01/24/2024 11:37 AM [facility] Protein, Urine 30(A) <=Trace mg/dL LAB URINALYSIS - AUTOMATED METHOD 01/24/2024 11:37 AM [facility] Glucose, Urine Negative Negative mg/dL LAB URINALYSIS - AUTOMATED METHOD 01/24/2024 11:37 AM [facility] Ketones, Urine Trace(A) Negative mg/dL LAB URINALYSIS - AUTOMATED METHOD 01/24/2024 11:37 AM [facility] Urobilinogen , Urine 0.2 0.2 - 1.0 mg/dL LAB URINALYSIS - AUTOMATED METHOD 01/24/2024 11:37 AM [facility] Bilirubin, Urine Negative Negative LAB URINALYSIS - AUTOMATED METHOD 01/24/2024 11:37 AM [facility] Blood, Urine Small(A) Negative LAB URINALYSIS - AUTOMATED METHOD 01/24/2024 11:37 AM [facility] RBC, Urine 10.2(H) 0 - 4 /HPF LAB URINALYSIS - AUTOMATED METHOD 01/24/2024 11:37 AM [facility] WBC, Urine 273.1(H) 0 - 4 /HPF LAB URINALYSIS - AUTOMATED METHOD 01/24/2024 11:37 AM [facility] Squamous Epithelial, Urine 4 0 - 60 /LPF LAB URINALYSIS - AUTOMATED METHOD 01/24/2024 11:37 AM [facility] Bacteria, Urine Many(A) Negative /HPF LAB URINALYSIS - AUTOMATED METHOD 01/24/2024 11:37 AM [facility] Hyaline Casts, Urine 1.2 0 - 3 /LPF LAB URINALYSIS - AUTOMATED METHOD 01/24/2024 11:37 AM EST [facility] LAB Urine Urine specimen obtained by clean catch procedure / Unknown Non-blood Collection / Unknown 01/23/2024 10:00 PM EST 01/24/2024 11:04 AM EST us Wilma Gan MD LAB URINE ORDERABLES Final Res ult [facility] [address] [place] [address], * (ABNORMAL) Culture urine (01/23/2024 10:00 PM EST) Culture, Urine >100,000 CFU/mL Escherichia coli(A) OBI 01/26/2024 12:25 PM EST [facility] Urine Urine specimen obtained by clean catch procedure / Unknown Non-blood Collection / Unknown 01/23/2024 10:00 PM EST 01/24/2024 11:04 AM EST Narrative Organism Antibiotic Method Susceptibility Escherichia coli Amoxicillin/Clavulanate OBI <=2 ug/ml: Susceptible Escherichia coli Ampicillin/Sulbactam OBI <=2 ug/ml: Susceptible Escherichia coli Piperacillin/Tazobactam OBI <=4 ug/ml: Susceptible Escherichia coli Cefazolin (Urine) OBI <=1 ug/ml: Susceptible Escherichia coli Cefoxitin OBI <=4 ug/ml: Susceptible Escherichia coli Ceftazidime OBI <=0.5 ug/ml: Susceptible Escherichia coli Ceftriaxone OBI <=0.25 ug/ml: Susceptible Escherichia coli Cefepime OBI <=0.12 ug/ml: Susceptible Escherichia coli Meropenem OBI <=0.25 ug/ml: Susceptible Escherichia coli Amikacin OBI 2 ug/ml: Susceptible Escherichia coli Gentamicin OBI <=1 ug/ml: Susceptible Escherichia coli Ciprofloxacin OBI <=0.06 ug/ml: Susceptible Escherichia coli Levofloxacin OBI <=0.12 ug/ml: Susceptible Escherichia coli Nitrofurantoin OBI <=16 ug/ml: Susceptible Escherichia coli Trimethoprim/Sulfamethoxazole OBI <=20 ug/ml: Susceptible us Wilma Gan MD LAB MICROBIOLOGY - GENERAL ORD ERABLES Final Result [facility] ([facility]) [facility] [address] [place] [address], documented in this encounter Visit Diagnoses Diagnosis Unspecified abdominal pain documented in this encounter Care Teams Pediatric Physician Assistant Relationship Specialty Start Date End Date Wilma Gan MD [address] [place] [id number] PCP - General Internal Medicine 01/26/24 documented as of this encounter
--- OUTSIDE RECORDS SUMMARY | 2024-06-20 16:33 | XMS_ITS | Encounter Summary ---
Author Organization [facility] Address [address] [place] [address] Care Team Providers Care Patient Monitor Name Role Phone Wilma Gan MD Primary Care Provider [phone] Encounter Details Date Type Department Care Team (Latest Contact Info) Description 01/26/2024 Lab Requisition [facility] - Main Lab [address] [place] [address] Wilma Gan MD [address] [place] [id number] Type 2 diabetes mellitus without complications (CMS/HCC [...] Associated Diagnosis Comments COMPLETE BLOOD COUNT Routine 01/26/2024 8:14 AM EST Type 2 diabetes mellitus without complications (CMS/HCC) BASIC METABOLIC PANEL Routine 01/26/2024 8:14 AM EST Type 2 diabetes mellitus without complications (CMS/HCC) documented in this encounter Results * (ABNORMAL) Basic metabolic panel (01/26/2024 8:14 AM EST) Sodium 140 133 - 145 mmol/L LAB CHEMISTRY METHOD 01/26/2024 10:33 AM EST [facility] Potassium 4.8 3.5 - 5.5 mmol/L LAB CHEMISTRY METHOD 01/26/2024 10:33 AM EST [facility] LAB Comment:Hemolysis present Chloride 112(H) 96 - 110 mmol/L LAB CHEMISTRY METHOD 01/26/2024 10:33 AM [facility] CO2 22 21 - 32 mmol/L LAB CHEMISTRY METHOD 01/26/2024 10:33 AM [facility] Anion Gap 6 3 - 11 LAB CHEMISTRY METHOD 01/26/2024 10:33 AM [facility] LAB Glucose 87 70 - 100 mg/dL LAB CHEMISTRY METHOD 01/26/2024 10:33 AM [facility] BUN 19 5 - 25 mg/dL LAB CHEMISTRY METHOD 01/26/2024 10:33 AM [facility] Creatinine 1.00 0.70 - 1.30 mg/dL LAB CHEMISTRY METHOD 01/26/2024 10:33 AM [facility] LAB eGFR 75 >=60 mL/min/1. 73m2 LAB CHEMISTRY METHOD 01/26/2024 10:33 AM [facility] LAB Comment:Calculation based on the??Chronic Kidney Disease Epidemiology Collaboration (CKD-EPI) equation refit??without adjustment for race. BUN/Creatinine Ratio 19.0 LAB CHEMISTRY METHOD 01/26/2024 10:33 AM [facility] Calcium 8.7 8.5 - 10.5 mg/dL LAB CHEMISTRY METHOD 01/26/2024 10:33 AM [facility] Blood Venous blood specimen / Unknown Venipuncture / Unknown 01/26/2024 8:14 AM EST 01/26/2024 9:21 AM EST us Wilma Gan MD LAB BLOOD ORDERABLES Final Res ult [facility] [address] [place] [address], [place] [phone] * (ABNORMAL) Complete blood count (01/26/2024 8:14 AM EST) WBC 4.4(L) 4.8 - 10.8 K/mcL LAB HEMETOLOGY METHOD 01/26/2024 10:34 AM [facility] RBC 4.90 4.50 - 5.50 M/mcL LAB HEMETOLOGY METHOD 01/26/2024 10:34 AM [facility] Hemoglobin 14.9 13.5 - 17.5 g/dL LAB HEMETOLOGY METHOD 01/26/2024 10:34 AM [facility] Hematocrit 49.5 42.0 - 54.0 % LAB HEMETOLOGY METHOD 01/26/2024 10:34 AM [facility] MCV 101.9(H) 79.0 - 98.0 FL LAB HEMETOLOGY METHOD 01/26/2024 10:34 AM [facility] MCH 30.7 27.0 - 32.0 pcg LAB HEMETOLOGY METHOD 01/26/2024 10:34 AM [facility] MCHC 30.1(L) 32.0 - 37.0 g/dL LAB HEMETOLOGY METHOD 01/26/2024 10:34 AM [facility] RDW 12.6 11.0 - 15.0 % LAB HEMETOLOGY METHOD 01/26/2024 10:34 AM [facility] LAB Platelets 194 130 - 400 K/mcL LAB HEMETOLOGY METHOD 01/26/2024 10:34 AM [facility] LAB MPV 11.3(H) 7.0 - 11.0 FL LAB HEMETOLOGY METHOD 01/26/2024 10:34 AM [facility] NRBC 0.0 <1.0 % LAB HEMETOLOGY METHOD 01/26/2024 10:34 AM [facility] LAB NRBC Absolute 0.00 <0.10 K/mcL LAB HEMETOLOGY METHOD 01/26/2024 10:34 AM [facility] Blood Venous blood specimen / Unknown Venipuncture / Unknown 01/26/2024 8:14 AM EST 01/26/2024 9:21 AM EST Wilma Gan MD LAB BLOOD ORDERABLES Final Res ult [facility] ([facility]) [facility] [address] [place] [address], documented in this encounter Visit Diagnoses Diagnosis Type 2 diabetes mellitus without complications (CMS/HCC V24, CMS/HCC V28) documented in this encounter Care Teams Patient Monitor Relationship Specialty Start Date End Date Wilma Gan MD [address] [place] [phone] PCP - General Internal Medicine 01/26/24 documented as of this encounter
--- OUTSIDE RECORDS SUMMARY | 2024-06-20 16:33 | XMS_ITS | Encounter Summary ---
Author Organization [facility] Address [address] [place] [address] Care Team Providers Care Supervisor Uranium Processing Name Role Phone Wilma Gan MD Primary Care Provider [phone] Encounter Details Date Type Department Care Team (Late st Contact Info) Description 03/05/2024 Lab Requisition [facility] - Main Lab [address] [facility] [place] [address] Aravind Gray MD [address] [place] [address] Type 2 diabetes mellitus without complications (CMS/HCC [...] Associated Diagnosis Comments COMPLETE BLOOD COUNT Routine 03/05/2024 4:31 PM EST Type 2 diabetes mellitus without complications (CMS/HCC) BASIC METABOLIC PANEL Routine 03/05/2024 4:31 PM EST Type 2 diabetes mellitus without complications (CMS/HCC) documented in this encounter Results * (ABNORMAL) Basic metabolic panel (03/05/2024 4:31 PM EST) Sodium 140 133 - 145 mmol/L LAB CHEMISTRY METHOD 03/05/2024 6:08 PM EST [facility] Potassium 4.1 3.5 - 5.5 mmol/L LAB CHEMISTRY METHOD 03/05/2024 6:08 PM EST [facility] Chloride 109 96 - 110 mmol/L LAB CHEMISTRY METHOD 03/05/2024 6:08 PM [facility] LAB CO2 26 21 - 32 mmol/L LAB CHEMISTRY METHOD 03/05/2024 6:08 PM [facility] Anion Gap 5 3 - 11 LAB CHEMISTRY METHOD 03/05/2024 6:08 PM [facility] LAB Glucose 112(H) 70 - 100 mg/dL LAB CHEMISTRY METHOD 03/05/2024 6:08 PM [facility] BUN 26(H) 5 - 25 mg/dL LAB CHEMISTRY METHOD 03/05/2024 6:08 PM [facility] LAB Creatinine 1.12 0.70 - 1.30 mg/dL LAB CHEMISTRY METHOD 03/05/2024 6:08 PM [facility] LAB eGFR 65 >=60 mL/min/1. 73m2 LAB CHEMISTRY METHOD 03/05/2024 6:08 PM [facility] LAB Comment:Calculation based on the??Chronic Kidney Disease Epidemiology Collaboration (CKD-EPI) equation refit??without adjustment for race. BUN/Creatinine Ratio 23.2 LAB CHEMISTRY METHOD 03/05/2024 6:08 PM [facility] Calcium 9.3 8.5 - 10.5 mg/dL LAB CHEMISTRY METHOD 03/05/2024 6:08 PM [facility] LAB Blood Venous blood specimen / Unknown Venipuncture / Unknown 03/05/2024 4:31 PM EST 03/05/2024 5:32 PM EST us Aravind Gray MD LAB BLOOD ORDERABLES Final Resul t [facility] [address] [place] [address], [place] [phone] * Complete blood count (03/05/2024 4:31 PM EST) WBC 6.5 4.8 - 10.8 K/mcL LAB HEMETOLOGY METHOD 03/05/2024 5:56 PM [facility] RBC 5.30 4.50 - 5.50 M/mcL LAB HEMETOLOGY METHOD 03/05/2024 5:56 PM [facility] LAB Hemoglobin 15.9 13.5 - 17.5 g/dL LAB HEMETOLOGY METHOD 03/05/2024 5:56 PM [facility] LAB Hematocrit 49.3 42.0 - 54.0 % LAB HEMETOLOGY METHOD 03/05/2024 5:56 PM [facility] LAB MCV 93.9 79.0 - 98.0 FL LAB HEMETOLOGY METHOD 03/05/2024 5:56 PM [facility] LAB MCH 30.3 27.0 - 32.0 pcg LAB HEMETOLOGY METHOD 03/05/2024 5:56 PM [facility] LAB MCHC 32.3 32.0 - 37.0 g/dL LAB HEMETOLOGY METHOD 03/05/2024 5:56 PM [facility] LAB RDW 11.9 11.0 - 15.0 % LAB HEMETOLOGY METHOD 03/05/2024 5:56 PM [facility] LAB Platelets 199 130 - 400 K/mcL LAB HEMETOLOGY METHOD 03/05/2024 5:56 PM [facility] LAB MPV 10.4 7.0 - 11.0 FL LAB HEMETOLOGY METHOD 03/05/2024 5:56 PM [facility] LAB NRBC 0.0 <1.0 % LAB HEMETOLOGY METHOD 03/05/2024 5:56 PM [facility] LAB NRBC Absolute 0.00 <0.10 K/mcL LAB HEMETOLOGY METHOD 03/05/2024 5:56 PM [facility] LAB Blood Venous blood specimen / Unknown Venipuncture / Unknown 03/05/2024 4:31 PM EST 03/05/2024 5:32 PM EST Aravind Gray MD LAB BLOOD ORDERABLES Final Resul t [facility] ([facility]) [facility] [address] [place] [address], documented in this encounter Visit Diagnoses Diagnosis Type 2 diabetes mellitus without complications (CMS/HCC V24, CMS/HCC V28) documented in this encounter Care Teams Supervisor Uranium Processing Relationship Specialty Start Date End Date Wilma Gan MD [address] [place] [id number] PCP - General Internal Medicine 01/26/24 documented as of this encounter
[2024-06-20 16:38] LABS: Appearance Urine Clear; Color Urine Yellow; Glucose Urine UA 500 mg/dL (Negative); Leukocyte Esterase Urine Negative (Negative); Nitrite Urine Negative (Negative); Specific Gravity - Urine 1.025 (1.005-1.025); Urine Blood Negative (Negative); Urine Ketones Trace mg/dL (Negative); Urine Protein Negative (Neg-Trace)
[2024-06-20 17:04] VITALS: BP 141/68; PULSE 87; RESP 18; O2SAT 98
--- NOTE | 2024-06-20 17:41 | PC.NURSE ---
pt has not had any behavioral issues while in the ED. no aggression, no inappropriate behavior. call made out to [facility] dementia unit give report to RN for transfer back to facility. no answer after several minutes. will try again
--- NOTE | 2024-06-20 18:23 | PC.NURSE ---
multiple phone calls made to [facility]. transferred by US at multiple times to nursing floor and no one picks up for several minutes
[2024-06-20 20:01] VITALS: BP 141/68; PULSE 87; RESP 18; TEMP 36; O2SAT 98
== END 2024-06-20 20:01 | disposition skilled nursing facility (03) ==
PROVIDERS: Emergency Provider Emergency Medicine
DX: F03.911 Unspecified dementia, unspecified severity, with agitation (principal); F41.9 Anxiety disorder, unspecified
CPT/HCPCS: 36415; 80048; 80076; 81003; 83690; 85025; 99283; 99284

== ENCOUNTER 2025-02-07 09:45 | Outpatient (RCR) | payer MEDICARE, MEDICAID, SELFPAY | END 2025-02-07 16:29 | disposition home or self-care (01) | LOC: HO.WCC 09:45 | PROVIDERS: Visit Provider Surgery Vascular Surgery | DX: E11.621 Type 2 diabetes mellitus with foot ulcer (principal); E11.51 Type 2 diabetes mellitus with diabetic peripheral angiopathy without gangrene; I70.245 Atherosclerosis of native arteries of left leg with ulceration of other part of foot; L97.522 Non-pressure chronic ulcer of other part of left foot with fat layer exposed; F01.53 Vascular dementia, unspecified severity, with mood disturbance; M24.562 Contracture, left knee; N18.9 Chronic kidney disease, unspecified | CPT/HCPCS: 99213 ==

== ENCOUNTER 2025-02-26 10:15 | Outpatient (REF) | payer MEDICARE, MEDICAID, SELFPAY ==
--- OUTSIDE RECORDS SUMMARY | 2025-02-24 12:52 | XMS_ITS | Continuity of Care Document ---
Author Organization [facility] ter Address [address] [place] [id number]- Care Team Providers Care Associate Research Scientist Name Role Phone Laurent PEREZ, Azalea Primary Care Physician [facility] [id number] Date(s): 02/14/25 - 02/24/[address] [address]- Encounter Diagnosis Osteomyelitis(Final) - 02/15/25 Septic arthritis(Final) - 02/15/25 Discharge Disposition: Transferred to short-term general hospit Attending Physician: Mary Love MD Admitting Physician: Chace Pinon MD Referring Physician: Not on Staff, Referring MD Encounter Type: Disch IP Allergies, Adverse Reactions, Alerts No Known Medication Allergies Functional Status Functional Status Assessment Assessment Assessment Component Result Effecti ve Date Dimitrios scale total score 17 Functional Status Assessment Assessment Assessment Component Result Effecti ve Date Dimitrios scale total score 18 Functional Status Assessment Assessment Assessment Component Result Effecti ve Date Total Falls Risk Score 19 02/23 Functional Status Assessment Assessment Assessment Component Result Effecti ve Date Dimitrios scale total score 14 Functional Status Assessment Assessment Assessment Component Result Effecti ve Date Unspecifed Functional Status Assessment Skin abnormality typ e (observable entity) Surgical incision 02/23/25 Functional Status Assessment Assessment Assessment Component Result Effecti ve Date Unspecifed Functional Status Assessment Skin abnormality typ e (observable entity) Surgical incision 02/23/25 Functional Status Assessment Assessment Assessment Component Result Effecti ve Date Total Falls Risk Score 32 02/23 Functional Status Assessment Assessment Assessment Component Result Effecti ve Date Unspecifed Functional Status Assessment Skin abnormality typ e (observable entity) Surgical incision 02/23/25 Functional Status Assessment Assessment Assessment Component Result Effecti ve Date Total Falls Risk Score 51 02/22 Immunizations Given and Recorded Vaccine Date Status Refusal Reason SARS-CoV-2 (COVID-19) mRNA-1273 vaccine 06/12/20 R ecorded SARS-CoV-2 (COVID-19) mRNA-1273 vaccine 05/14/20 R ecorded Medications Ativan 0.5 mg oral tablet 1 tablet = 0.5 mg, By Mouth, Daily, Prior to showers & AM care, 0 Refills, Maintenance, 02/14/25 5:54:00 PM EST, Partial fill upon patient request if the prescription is for a schedule II opioid drug. Start Date: 02/14/25 Status: Ordered Medication Dispense Status: Completed Total Allowed Fills: 1 Fills Dispensed: 0 betamethasone topical dipropionate 0.05% cream 1 application, Topically, Daily, 0 Refills, Maintenance, 02/14/25 5:49:00 PM EST, Partial fill uponpatient request if the prescription is for a schedule II opioid drug. Start Date: 02/14/25 Status: Ordered Medication Dispense Status: Completed Total Allowed Fills: 1 Fills Dispensed: 0 carBAMazepine 100 mg oral tablet, chewable 200 mg, 2, tablet, Chew, Daily at bedtime, Refills 0, Maintenance, 02/14/25 5:49:00 PM EST, Partialfill upon patient request if the prescription is for a schedule II opioid drug. Start Date: 02/14/25 Status: Ordered Medication Dispense Status: Completed Total Allowed Fills: 1 Fills Dispensed: 0 carBAMazepine 100 mg oral tablet, chewable 100 mg, 1, tablet, Chew, Daily, Refills 0, Maintenance, 02/14/25 5:49:00 PM EST, Partial fill upon patient request if the prescription is for a schedule II opioid drug. Start Date: 02/14/25 Status: Ordered Medication Dispense Status: Completed Total Allowed Fills: 1 Fills Dispensed: 0 carboxymethylcellulose 1 drops, Eyes, Both, 4 times a day, 0.25% Eye Drops, 0 Refills, Maintenance, 02/14/25 5:50:00 PM EST, Partial fill upon patient request if the prescription is for a schedule II opioid drug. Start Date: 02/14/25 Status: Ordered Medication Dispense Status: Completed Total Allowed Fills: 1 Fills Dispensed: 0 CeleBREX 100 mg oral capsule 1 capsule = 100 mg, By Mouth, 2 times a day, 0 Refills, Maintenance, 02/14/25 5:52:00 PM EST, Partial fill upon patient request if the prescription is for a schedule II opioid drug. Start Date: 02/14/25 Status: Ordered Medication Dispense Status: Completed Total Allowed Fills: 1 Fills Dispensed: 0 cholestyramine 4 g/4.8 g oral powder for reconstitution = 4 Gm, By Mouth, Daily, 0 Refills, Maintenance, 02/14/25 5:52:00 PM EST, Partial fill upon patientrequest if the prescription is for a schedule II opioid drug. Start Date: 02/14/25 Status: Ordered Medication Dispense Status: Completed Total Allowed Fills: 1 Fills Dispensed: 0 collagenase topical 250 u/gm ointment 1 applicator, Topically, Daily, 0 Refills, Maintenance, 02/14/25 5:53:00 PM EST, Partial fill upon patient request if the prescription is for a schedule II opioid drug. Start Date: 02/14/25 Status: Ordered Medication Dispense Status: Completed Total Allowed Fills: 1 Fills Dispensed: 0 Dilaudid 2 mg oral tablet 1 tablet = 2 mg, By Mouth, Daily, Prior to wound care, 0 Refills, Maintenance, 02/14/25 5:53:00 PM EST, Partial fill upon patient request if the prescription is for a schedule II opioid drug. Start Date: 02/14/25 Status: Ordered Medication Dispense Status: Completed Total Allowed Fills: 1 Fills Dispensed: 0 Dilaudid 2 mg oral tablet 1 tablet = 2 mg, By Mouth, Every 8 hours, PRN Pain , Severe, 0 Refills, Maintenance, 02/14/25 5:57:00 PM EST, Partial fill upon patient request if the prescription is for a schedule II opioid drug. Start Date: 02/14/25 Status: Ordered Medication Dispense Status: Completed Total Allowed Fills: 1 Fills Dispensed: 0 Dulcolax 10 mg rectal suppository 1 supp = 10 mg, Rectally, Daily, PRN as needed for constipation, 0 Refills, Maintenance, 02/14/25 5:56:00 PM EST, Partial fill upon patient request if the prescription is for a schedule II opioid drug. Start Date: 02/14/25 Status: Ordered Medication Dispense Status: Completed Total Allowed Fills: 1 Fills Dispensed: 0 Fleet Enema 19 gm-7 gm rectal enema 1 each, Rectally, Daily, PRN as needed for constipation, 0 Refills, Maintenance, 02/14/25 5:56:00 PM EST, Partial fill upon patient request if the prescription is for a schedule II opioid drug. Start Date: 02/14/25 Status: Ordered Medication Dispense Status: Completed Total Allowed Fills: 1 Fills Dispensed: 0 Alley-Tussin Expectorant 100 mg/5 mL oral liquid 10 mL = 200 mg, By Mouth, Every 4 hours, PRN Cough and Congestion, 0 Refills, Maintenance, :57:00 PM EST, Partial fill upon patient request if the prescription is for a schedule II opioid drug. Start Date: 02/14/25 Status: Ordered Medication Dispense Status: Completed Total Allowed Fills: 1 Fills Dispensed: 0 Lexapro 5 mg oral tablet 2 tablet = 10 mg, By Mouth, Daily, 0 Refills, Maintenance, 02/14/25 5:53:00 PM EST, Partial fill upon patient request if the prescription is for a schedule II opioid drug. Start Date: 02/14/25 Status: Ordered Medication Dispense Status: Completed Total Allowed Fills: 1 Fills Dispensed: 0 Lidocaine 2% Topical 1 application, Topically, Daily, PRN Pain , Moderate, 0 Refills, Maintenance Start Date: 02/14/25 Status: Ordered Medication Dispense Status: Completed Total Allowed Fills: 1 Fills Dispensed: 0 loperamide 2 mg oral capsule 2 mg, 1, capsule, By Mouth, 2 times a day, Refills 0, Maintenance, 02/14/25 5:54:00 PM EST, Partialfill upon patient request if the prescription is for a schedule II opioid drug. Start Date: 02/14/25 Status: Ordered Medication Dispense Status: Completed Total Allowed Fills: 1 Fills Dispensed: 0 menthol-methyl salicylate 10%-15% topical cream 1 applicator, Topically, Daily, Applied to bilateral Knees and Left shoulder, 0 Refills, Maintenance, 02/14/25 5:55:00 PM EST, Partial fill upon patient request if the prescription is for a schedule II opioid drug. Start Date: 02/14/25 Status: Ordered Medication Dispense Status: Completed Total Allowed Fills: 1 Fills Dispensed: 0 Milk of Magnesia 1200 mg/15 mL oral liquid 30 mL = 2,400 mg, By Mouth, Daily, PRN Constipation, 0 Refills, Maintenance, 02/14/25 5:58:00 PM EST, Partial fill upon patient request if the prescription is for a schedule II opioid drug. Start Date: 02/14/25 Status: Ordered Medication Dispense Status: Completed Total Allowed Fills: 1 Fills Dispensed: 0 nalOXONE 0.4 mg/mL injectable solution 1 mL = 0.4 mg, Intramuscular, Once, PRN As Needed, 0 Refills, Maintenance, 02/14/25 5:58:00 PM EST,Partial fill upon patient request if the prescription is for a schedule II opioid drug. Start Date: 02/14/25 Status: Ordered Medication Dispense Status: Completed Total Allowed Fills: 1 Fills Dispensed: 0 ondansetron 2 mg/mL injectable solution 2 mL = 4 mg, IV Infusion, Every 8 hours, PRN Nausea & Vomiting, 0 Refills, Maintenance, 02/14/25 5:59:00 PM EST, Partial fill upon patient request if the prescription is for a schedule II opioid drug. Start Date: 02/14/25 Status: Ordered Medication Dispense Status: Completed Total Allowed Fills: 1 Fills Dispensed: 0 ondansetron 4 mg oral tablet 1 tablet = 4 mg, By Mouth, Every 8 hours, PRN Nausea & Vomiting, 0 Refills, Maintenance, 02/14/25 5:59:00 PM EST, Partial fill upon patient request if the prescription is for a schedule II opioiddrug. Start Date: 02/14/25 Status: Ordered Medication Dispense Status: Completed Total Allowed Fills: 1 Fills Dispensed: 0 prochlorperazine 25 mg rectal suppository 1 supp = 25 mg, Rectally, Every 8 hours, PRN Nausea & Vomiting, 0 Refills, Maintenance, 02/14/25 6:01:00 PM EST, Partial fill upon patient request if the prescription is for a schedule II opioid drug. Start Date: 02/14/25 Status: Ordered Medication Dispense Status: Completed Total Allowed Fills: 1 Fills Dispensed: 0 prochlorperazine 5 mg oral tablet 2 tablet = 10 mg, By Mouth, Every 8 hours, PRN Nausea & Vomiting, 0 Refills, Maintenance, 02/14/25 6:00:00 PM EST, Partial fill upon patient request if the prescription is for a schedule II opioid drug. Start Date: 02/14/25 Status: Ordered Medication Dispense Status: Completed Total Allowed Fills: 1 Fills Dispensed: 0 prochlorperazine 5 mg/mL injectable solution 2 mL = 10 mg, Intramuscular, Every 8 hours, PRN as needed for nausea/vomiting, 0 Refills, Maintenance, 02/14/25 6:00:00 PM EST, Partial fill upon patient request if the prescription is for a scheduleII opioid drug. Start Date: 02/14/25 Status: Ordered Medication Dispense Status: Completed Total Allowed Fills: 1 Fills Dispensed: 0 traZODone 50 mg oral tablet 25 mg, 0.5, tablet, By Mouth, Every 12 hours, PRN, Refills 0, Maintenance, Agitation, 02/14/25 6:01:00 PM EST, Partial fill upon patient request if the prescription is for a schedule II opioid drug. Start Date: 02/14/25 Status: Ordered Medication Dispense Status: Completed Total Allowed Fills: 1 Fills Dispensed: 0 Tylenol 325 mg oral tablet 650 mg, 2, tablet, By Mouth, Every 8 hours, Refills 0, Maintenance, 03/10/21 8:45:00 AM EST, Partial fill upon patient request if the prescription is for a schedule II opioid drug. Start Date: 03/10/21 Status: Ordered Medication Dispense Status: Completed Total Allowed Fills: 1 Fills Dispensed: 0 Tylenol Extra Strength 500 mg oral tablet 1 tablet = 500 mg, By Mouth, Every 8 hours, PRN Moderate Pain/Fever >100.4 F, 0 Refills, Maintenance, 02/14/25 5:55:00 PM EST, Partial fill upon patient request if the prescription is for a schedule II opioid drug. Start Date: 02/14/25 Status: Ordered Medication Dispense Status: Completed Total Allowed Fills: 1 Fills Dispensed: 0 Mental Status Mental Status Assessment Assessment Assessment Component Result Effecti ve Date Rikki coma score total 13 02/27 Mental Status Assessment Assessment Assessment Component Result Effecti ve Date Warner coma score total 13 02/27 Results Radiology Reports * Exam Date Time Procedure Performing Provider Status 02/14/25 7:[address] Ext Lower W/ Contrast Left Auth (Verified) Notes: (CT Ext Lower W/ Contrast Left) Reason For Exam: Infection RESULT: CT Ext Lower W/ Contrast Left CT Ext Lower W/ Contrast Left Hx of Present Illness: L foot wound; Reason: Infection; Clinical Question(s): Foot TECHNIQUE: Helical CT with contrast formatted in 3 planes. 100 cc of Isovue 300 100cc vials was administered intravenously. Weight-based protocol using automatic tube modulation was used to optimize exposure parameters. CTDIvol Body: 14.90 mGy, DLP Body: 455 mGy*cm. COMPARISONS: None FINDINGS: Bones and joints: Open left foot wound with concern of osteomyelitis. Generalized demineralization. No fracture or other abnormality seen hindfoot and midfoot. Grossly normal appearance on both sides of the first MTP joint with bone destruction and small bubble of gas within the bone and adjacent soft tissues. This involves distal 25 mm throughout the first metatarsal and the proximal 10 mm of proximal phalanx. Abnormal joint is surrounded by a rim of fluid with bubbles of gas measuring 5 mm in diameter and with enhancing rim. Small isolated bubbles of gas are present near the abnormal first MTP joint and not within the fluid. No other evidence of bone destruction. No soft tissue abnormality elsewhere. IMPRESSION: 1. 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 2. The abnormal first MTP joint is surrounded by a rim of presumably infected fluid. Small specks of gas are noted within the abnormal bone, within the fluid, and in close related softtissues. 3. No acute bone or joint abnormality seen hindfoot or midfoot. Wet read was placed in [facility] at 8:55 PM on 02/14/2025 by Romero Malcolm DO (R2, PGY-3). I have personally reviewed the images and I agree with this report. WSN: [id number] Ordering Physician: Sunny Hawthorne Dictated By: Romero Malcolm DO Dictated Date/Time: 02/14/25 11:13 p Reviewed By: Keven Zhao MD Signed By: Keven Zhao MD Signed Date/Time: 02/14/25 11:18 pm Transcribed By: ALECIA Transcribed Date/Time: 02/14/25 9:05 pm Vital Signs Most recent to oldest [Reference Range]: 1 2 3 Weight 58.4 kg (02/20/25 7:42 AM) 58.4 kg (02/15/25 9:26 AM) 58.4 kg (02/15/25 1:06 AM) Oxygen Saturation [94-100 %] 97 % (02/24/25 11:38 AM) 100 % (02/24/25 8:25 AM) 99 % (02/24/25 4:56 AM) Pulse Rate [55-90 bpm] 77 bpm (02/24/25 11:38 AM) 74 bpm (02/24/25 8:25 AM) 74 bpm (02/24/25 4:56 AM) Blood Pressure [90-138/55-84 mm Hg] 114/70mm Hg (02/24/25 11:38 AM) 97/58mm Hg (02/24/25 8:25 AM) 107/54mm Hg (02/24/25 4:56 AM) Respiratory Rate [16-30 br/min] 19 br/min (02/24/25 11:38 AM) 17 br/min (02/24/25 8:25 AM) 18 br/min (02/23/25 11:49 PM) Temperature [96.8-100.4 DegF] 98.5 DegF (02/24/25 11:38 AM) 97.7 DegF (02/24/25 8:25 AM) 97.3 DegF (02/23/25 11:49 PM) Liters per Minute 6 L/min (02/20/25 11:30 AM) 6 L/min (02/20/25 11:15 AM) 6 L/min (02/20/25 11:02 AM) Mode of Delivery (Oxygen) Room air (02/24/25 11:38 AM) Room air (02/24/25 8:25 AM) Room air (02/24/25 4:56 AM) Blood pressure sites Leg, left (02/24/25 11:38 AM) Arm, right (02/24/25 8:25 AM) Arm, right (02/23/25 11:49 PM) Temperature Route Oral (02/24/25 11:38 AM) Oral (02/24/25 8:25 AM) Oral (02/23/25 11:49 PM) Social History Social History Type Response Sex Sex Representation Male (finding) Status Not Consult note * Jeremy Cary MD: VERIFY, PERFORM, SIGN Event Display: Consultation Note Authored Date: [id number] Patient: VARINDER WEBSTER Age: 84 years Sex: Male : 1940 Associated Diagnoses: None Author: Jeremy Cary MD INFECTIOUS DISEASES CONSULTATION NOTE Requesting Attending/Provider: Dr. Pinon Reason for Consult: Left diabetic foot infection Source of Information: [facility], patient History of Present Illness ([id number]: HPI ???4): This is an 84-year-old man with dementia, nonverbal at baseline. Patient is referred to the hospital from [facility] ([facility]) due to worsening left diabetic foot wound. There was concern about ongoing infectious process and referred to the hospital for further management. Patient did undergo CT scan of the extremity that showed only septic arthritis of the first MTP joint but associated osteomyelitis on both sides of the joint as well as a rim of infective fluid around it withsmall specks of gas within the abnormal bone, the fluid, and in close relation to soft tissue defect. Patient was seen by vascular surgery who refers that the best way to manage it would be with surgi cassandra intervention, likely amputation, patient going for surgical intervention today. Past Medical and Surgical History: As noted above patient with dementia, nonverbal at baseline. Patient had issues with subdural hemat[facility] 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 Has been nonverbal thereafter. Previous history of stomach cancer status post surgical removal about 25 years ago. Recent Antimicrobials: - Presently on vancomycin and Zosyn Medications: Reviewed Antimicrobial Allergies: No known antimicrobial allergies. Family History: No documented recurrent or chronic infectious diseases Social History: Significant history of alcohol abuse, drinking almost a bottle of whiskey daily forabout 2 years or so prior to his admission in 2020 due to subdural hematoma. Before that had been heavy drinker for most of his life. After surgical intervention the left him nonverbal and has beenin long-term care facility, no further alcohol use. No tobacco or substance use documented Review of Systems Unable to obtain Physical Examination (59295: 2-7 organ systems or comprehensive single system exam; 71292/26853: 8 organ systems or comprehensive single system exam) .VitalsTemperature 99.1 (09:50) Systolic Blood Pressure 118 (09:50) Diastolic Blood Pressure 59 (09:50) Pulse 79 (09:50) SpO2 97 (09:50) Respiratory Rate 22 (09:50) GENERAL: In no acute distress HEENT: Anicteric, no subconjunctival petechiae, moist oral mucosa without lesions or thrush NECK: Neck supple, without cervical lymphadenopathy CARDIOVASCULAR: Not able to appreciate any murmurs, rubs, or gallops RESPIRATORY: Lungs clear to auscultation GASTROINTESTINAL: Non-distended, normoactive bowel sounds, non-tender GENITOURINARY: No CVAT MUSCULOSKELETAL: Without joint effusions, no tenderness over spine. Evaluation of the left foot shows scabbed ulcer over the medial aspect of the first MTP tracking down toward the plantar aspect. There is swelling and redness over the entire area extending into the toe itself with some dusky tissue at the very base of the toe over the plantar aspect. Skin looks shiny likely indicating chronic vascular insufficiency SKIN: No diffuse rash present, no stigmata of infective endocarditis NEUROLOGICAL/PSYCH: Nonverbal Results Review General results All Labs 02/15/2025 7:04 EST WBC 9.6 k/mm3 RBC 3.75 m/mm3 L Hgb 10.9 Gm/dL L Hct 34.7 % L MCV 92.5 femtoliters MCH 29.1 pg MCHC 31.4 Gm/dL L Platelet Count 283 k/mm3 Sodium 138 mmol/L Potassium 4.3 mmol/L Chloride 105 mmol/L Bicarbonate Level 23 mmol/L Anion Gap 10 mmol/L Glucose Level 114 mg/dL H BUN 17 mg/dL Creatinine-Blood 0.89 mg/dL AST (SGOT) 17 units/L ALT (SGPT) 14 units/L Bilirubin, Total 0.3 mg/dL 02/14/2025 16:30 EST WBC 11.8 k/mm3 H Creatinine-Blood 0.90 mg/dL AST (SGOT) 23 units/L ALT (SGPT) 18 units/L Bilirubin, Total 0.2 mg/dL C-Reactive Protein 12.5 mg/dL H Result type: CT Ext Lower W/ Contrast Left Result date: February 14, 2025 19:12 EST Result status: Auth (Verified) Result title: CT Ext Lower W/ Contrast Left Performed by: Romero Malcolm DO on February 14, 2025 23:13 EST Verified by: Keven Zhao MD on February 14, 2025 23:18 EST Encounter info: [id number], [facility] [place], 02/14/2025 - * Final Report * Reason For Exam Infection RESULT: CT Ext Lower W/ Contrast Left CT Ext Lower W/ Contrast Left Hx of Present Illness: L foot wound; Reason: Infection; Clinical Question(s): Foot TECHNIQUE: Helical CT with contrast formatted in 3 planes. 100 cc of Isovue 300 100cc vials was administered intravenously. Weight-based protocol using automatic tube modulation was used to optimize exposure parameters. CTDIvol Body: 14.90 mGy, DLP Body: 455 mGy*cm. COMPARISONS: None FINDINGS: Bones and joints: Open left foot wound with concern of osteomyelitis. Generalized demineralization. No fracture or other abnormality seen hindfoot and midfoot. Grossly normal appearance on both sides of the first MTP joint with bone destruction and small bubble of gas within the bone and adjacent soft tissues. This involves distal 25 mm throughout the first metatarsal and the proximal 10 mm of proximal phalanx. Abnormal joint is surrounded by a rim of fluid with bubbles of gas measuring 5 mm in diameter and with enhancing rim. Small isolated bubbles of gas are present near the abnormal first MTP joint and not within the fluid. No other evidence of bone destruction. No soft tissue abnormality elsewhere. IMPRESSION: 1. 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 2. The abnormal first MTP joint is surrounded by a rim of presumably infected fluid. Small specks of gas are noted within the abnormal bone, within the fluid, and in close related softtissues. 3. No acute bone or joint abnormality seen hindfoot or midfoot. Microbiology: No recent cultures Impression and Plan Impression: This is an 84-year-old man with above-mentioned problems and comorbidities. Patient being evaluatedbecause of left diabetic foot infection. It does seem that the patient has some significant involvement of the foot particularly the first MTP area. The CT scan is quite impressive with multiple areas of gas just in the soft tissue but also even in the bone with a circumferential likely infected fluid around the entirety of the area tracking to the metatarsal bone itself. There is some inflammatory process likely seen in the tendon associated to this first toe would not be surprised that duringsurgery they may encounter soft tissue component. For now can continue broad-spectrum antibiotic therapy while awaiting surgical intervention, not just findings but also cultures. Hopefully with these we will be able to de-escalate therapy since I suspect patient would likely need ongoing treatmentfor some time relating to soft tissue component still remaining. Possible that given the extent of bony involvement even the amputated metatarsal might still have some residual bone they may require prolonged therapy, unless perhaps they take out the entirety of the bone seeing how by the CT scan these gas bubbles associated to the tissue and bone seem to drag at the very least midway down the metatarsal bone itself. Recommendations: -Ongoing therapy with vancomycin and Zosyn -Follow OR findings as well as cultures closely -Suspect that at the very least the patient will need ongoing antibiotic therapy for soft tissue component or perhaps even residual osteomyelitis. Final decision largely dependent on the OR findings Thank you for the consultation. Infectious Diseases will continue to follow the patient with you. Disclaimer: This dictation was accomplished with use of [employer] voice recognition software, prone tomedical word misidentifications and grammatical errors. The physician does strive to identify and correct these, but some could still be present. Please do not hesitate to contact physician for clarifications. Electronically Signed on 02/15/25 10:35 AM Luis Daniel MCKENZIE, Jeremy Jacques MD, [place]: PERFORM, MODIFY Event Display: Consult Authored Date: [id number] Patient: ??VARINDER WEBSTER ? Age:??84 Years?Sex:??Male?:??1940?[facility]?? Chief Complaint/Reason for Consult Reason for Consult: Diabetic foot infection Consulting Provider: Sunny Hawthorne MD History of Present Illness Patient is an 84-year-old male who comes from [facility] with concerns of an infected diabetic foot wound on his left foot.?? Vascular surgery was consulted for evaluation of this wound.?? He is accompanied by his son and 2 grandchildren, his daughter who is a healthcare proxy is on the phone during my interview.?? The patient is nonverbal and thus subjective information was limited to the information provided by his family.?? They state that he has had this wound forquite some time and that the living facility was caring for it, though they are unsure what they were doing in terms of wound care for it.?? They did raise concern for the facility that it was starting to look worse though they were told that they were keeping a close eye on the wound.?? He does display tenderness during my examination as he retracts the foot.?? His family denies him having fevers, chills, or instability while at his facility. Review of Systems Unable to obtain due to patient nonverbal status. Physical Exam Vitals & Measurements T:??97.7?F?? HR:??90??(Peripheral)?? RR:??20?? BP:??112/58?? SpO2:??98%?? GENERAL: No acute distress. Non-verbal. HEENT: Normocephalic. Atraumatic. Trachea midline. HEART: Regular rate and rhythm on the monitor. RESPIRATORY: Equal and symmetric chest rise bilaterally; no increased work of breathing. MUSCULOSKELETAL: Moving all extremities equally. Left lower extremity with necrotic wound to the medial base of L1 with surrounding erythema extending to the mid foot. There is no purulence able to be expressed. No malodor. Motor intact and does retract foot when palpated so presumed sensation intact and tender to palpation. SKIN: Warm and well perfused. Intact skin turgor. VASC: BP L popliteal, faint MP PT and AT Assessment/Plan Mr.??Carmen??is an 84-year-old male??with a history of prior??subdural hematoma with midline shift requiring??subdural hematoma evacuation and bolt placement,??dementia with behaviors, diabetes, and permanently resides??in a living facility??who presents to [facility] with concerns of a diabetic foot infection to??the left foot.?? He is hemodynamically stable and afebrile while in theemergency department. ??He does have a??slight leukocytosis of 11.8, otherwise labs are unremarkable. ??On exam he does have a necrotic eschar to??the base of 1 of L1 metatarsal with surrounding erythema. ??There is no crepitus??but he is significantly tender to palpation. ??CT imaging was??obtained that??is significant for osteomyelitis of??L1 met head and proximal phalanx.?? Given the significance of his??wound??he will require operative intervention for source control and likely amputation. ? ?Recommend??medical admission for??comorbidity management and will make him??n.p.o. at midnight for??surgery in the morning.?? This was discussed with family at the bedside and they are agreeable??tosurgical intervention at this time. ?? Recommendations: - NPO at midnight for OR in the morning - Vanc/Zosyn - Tight glycemic control - Medical??admission - Vascular surgery to follow ?? Discussed with Dr. La Please page [phone] with questions and concerns. Procedure/Surgical History No qualifying data available. Home Medications Acetaminophen: 500 mg = 1 tablet, By Mouth, Every 8 hours, PRN (Moderate Pain/Fever >100.4 F) Acetaminophen: 650 mg = 2 tablet, By Mouth, Every 8 hours Betamethasone Topical: 1 application, Topically, Daily Bisacodyl: 10 mg = 1 supp, Rectally, Daily, PRN (as needed for constipation) Carbamazepine: 200 mg = 2 tablet, Chew, Daily at bedtime Carbamazepine: 100 mg = 1 tablet, Chew, Daily carboxymethylcellulose: 1 drops, Eyes, Both, 4 times a day, 0.25% Eye Drops Cefepime: 1 Gm, Intramuscular, Once Cefuroxime: 500 mg = 1 tablet, By Mouth, Every 12 hours Celecoxib: 100 mg = 1 capsule, By Mouth, 2 times a day Cholestyramine: 4 Gm, By Mouth, Daily Collagenase Topical: 1 applicator, Topically, Daily Escitalopram: 10 mg = 2 tablet, By Mouth, Daily Guaifenesin: 200 mg = 10 mL, By Mouth, Every 4 hours, PRN (Cough and Congestion) Hydromorphone: 2 mg = 1 tablet, By Mouth, Daily, Prior to wound care Hydromorphone: 2 mg = 1 tablet, By Mouth, Every 8 hours, PRN (Pain , Severe) Lidocaine Topical: 1 application, Topically, Daily, PRN (Pain , Moderate) Loperamide: 2 mg = 1 capsule, By Mouth, 2 times a day Lorazepam: 0.5 mg = 1 tablet, By Mouth, Daily, Prior to showers & AM care Methyl Salicylate-Menthol Topical: 1 applicator, Topically, Daily, Applied to bilateral Knees and Left shoulder Milk of Magnesia: 2,400 mg = 30 mL, By Mouth, Daily, PRN (Constipation) nalOXONE: 0.4 mg = 1 mL, Intramuscular, Once, PRN (As Needed) Ondansetron: 4 mg = 1 tablet, By Mouth, Every 8 hours, PRN (Nausea & Vomiting) Ondansetron: 4 mg = 2 mL, IV Infusion, Every 8 hours, PRN (Nausea & Vomiting) PROCHLORperazine: 10 mg = 2 mL, Intramuscular, Every 8 hours, PRN (as needed for nausea/vomiting) PROCHLORperazine: 10 mg = 2 tablet, By Mouth, Every 8 hours, PRN (Nausea & Vomiting) PROCHLORperazine: 25 mg = 1 supp, Rectally, Every 8 hours, PRN (Nausea & Vomiting) Sodium Biphosphate-Sodium Phosphate: 1 each, Rectally, Daily, PRN (as needed for constipation) Trazodone: 25 mg = 0.5 tablet, By Mouth, Every 12 hours, PRN (Agitation) Allergies No Known Medication Allergies Family History No family history recorded. Lab Results Labs Last 24 Hours BLOOD COUNT & DIFF ? Event Name?? Event Result?? Date/Time?? WBC 11.8 k/mm3??High 02/14/25 16:30:00 RBC 3.99 m/mm3??Low 02/14/25 16:30:00 Hgb 11.6 Gm/dL??Low 02/14/25 16:30:00 Hct 37.1 %??Low 02/14/25 16:30:00 MCV 93 femtoliters 02/14/25 16:30:00 MCH 29.1 pg 02/14/25 16:30:00 MCHC 31.3 Gm/dL??Low 02/14/25 16:30:00 Platelet Count 284 k/mm3 02/14/25 16:30:00 MPV 9.3 femtoliters??Low 02/14/25 16:30:00 Nucleated RBC (Automated) 0 #/100 WBC'S 02/14/25 16:30:00 ? CHEM GENERAL ? Event Name?? Event Result?? Date/Time?? Sodium 136 mmol/L 02/14/25 16:30:00 Chloride 104 mmol/L 02/14/25 16:30:00 Bicarbonate Level 21 mmol/L??Low 02/14/25 16:30:00 Anion Gap 11 mmol/L 02/14/25 16:30:00 Glucose Level 115 mg/dL??High 02/14/25 16:30:00 BUN 23 mg/dL 02/14/25 16:30:00 Creatinine-Blood 0.9 mg/dL 02/14/25 16:30:00 Magnesium 2.4 mg/dL??High 02/14/25 16:30:00 Alkaline Phosphatase 83 units/L 02/14/25 16:30:00 AST (SGOT) 23 units/L 02/14/25 16:30:00 ALT (SGPT) 18 units/L 02/14/25 16:30:00 Bilirubin, Total 0.2 mg/dL 02/14/25 16:30:00 ? * Lizeth MCKENZIE, Miah Osorio: PERFORM Event Display: Consult Authored Date: [id number] Seen on rounds examined and interviewed??with the patient's son. ??Patient is nonverbal. ??He is bedridden and has not walked??in years. ??He is a full transfer.?? He has what appears to be a painfulsuppurative ulcer over the first metatarsal head on the left foot with surrounding erythema. ??The CT scan shows abundant gas??in the area consistent with an abscess.?? Given that he does not use theleg??he will have a debridement amputation??as needed. ??His healing status is uncertain in the absence of palpable pulses.?? Plan will be to at least remove the first toe??and drain all pus and nonviable tissue for source control.?? Likely??he is not a revascularization candidate if he does not hea l??the residual will need a more proximal definitive amputation but hope to minimize the??amount ofsurgery given his morbidity.?? Discussed with the patient's son Brandt??and questions answered. Surgical pathology study * Event Display: Surgical Pathology Authored Date: [id number] Patient Name: VARINDER WEBSTER Lab Patient : 1940 (Age: 84) Collection Date: 02/20/2025 Accession Date: 02/20/2025 Sign Out Date: 02/24/2025 Tissue Source: 1:LEFT AKA Final Diagnosis: Left leg, above knee amputation: - Extensive gangrenous ulceration with suppurative inflammation and gangrenous necrosis. Primary Pathologist:NIKA RAUSCH M.D. electronically signed out by: NIKA RAUSCH M.D. / WJOE Gross Description: A. Specimen Identification: 1. Received labeled as left above-knee amputation . 2. Received fresh. 3. Laterality: Left. 4. Type: Above-knee amputation. B. Is There An Accompanying Disposal Authorization Form?: Yes. 1. Signed by: The patient on 02/18/2025 at 11:30 AM. C. External Examination: 1. Extremity length, from heel to proximal margin: 50.0 cm. 2. Foot length, from heel to distal hallux: 23.0 cm. 3. Length of femur exposed: 3.5 cm. There is a 4. Presence of ulcers: 8.5 x 2.0 cm sutured red-brown, well-circumscribed ulcerative lesion at the distal aspect of the foot in the area of the previously amputated hallux and second digit. 5. Presence of surgical incisions/scars: None identified. 6. Presence of other skin lesions: None identified. 7. Color of skin: Hernadez-pink and wrinkled. 8. Any absent digits?: Yes, the hallux and second digit have been previously amputated. D. Comment: None. E. Additional Tissue Processing: None. F. Summary Of Sections: 1-2 pieces, ulcerative lesion. 2-1 piece, cross-section of third digit, following fixation and decalcification. (CE)* As of May 13, 2023, the specimen processing and staining is performed at [facility], [address] [place] [address] (CLIA#[id number]). Its performance characteristics determined by [facility]. Dany Thao M.D. Javascript Software Engineer of Surgical Pathology, Zuri Wright M.D. Javascript Software Engineer Cytopathology Phone #: [phone], On-Call Pathologist: [id number] * Lizeth MCKENZIE, Miah Osorio: REVIEW Event Display: Surgical Pathology Authored Date: [id number] Patient Name: VARINDER WEBSTER Lab Patient : 1940 (Age: 84) Collection Date: 02/15/2025 Accession Date: 02/17/2025 Sign Out Date: 02/21/2025 Tissue Source: 1:LEFT FIRST TOE AND SECOND TOE Final Diagnosis: Left 1st and 2nd toes, amputation: - Skin and subcutaneous tissue with gangrenous necrosis, ulceration and acute suppurative inflammation - Bone with acute osteomyelitis. Primary Pathologist:Natalya Aragon M.D. electronically signed out by: Natalya Aragon M.D. / DARRELL Gross Description: Specimen labeled Left first toe and second toe. Received in formalin and consists of 2 toe amputation specimens that are 6.3 x 3.2 x 2.9 cm and 5.0 x 1.9 x 1.7 cm, and a detached aggregate of grossly necrotic soft tissue and hemorrhagic bony tissue fragments that is 5.9 x 5.2 x 2.2 cm. Each toe am putation displays a markedly thickened and discolored toenail. The larger toe contains an ill-defined, grossly necrotic, ulcerated area that is 3.7 x 1.6 cm, and is focally present at the nearest skin and soft tissue resection margins. The entire distal toe tip of the smaller amputation is involvedby a hernadez, crusted, ulcerated lesion that is 1.9 x 1.5 cm. The resection margins are differentially inked green (larger) and blue (smaller). Sectioning reveals focally softened, hemorrhagic bone beneath the ulcerated area of the larger toe amputation, with surrounding grossly necrotic soft tissue. The smaller amputation displays hernadez-white and yellow, firm bone. Survey Crew Chief sections are submitted, following decalcification. 1-skin and soft tissue resection margins, perpendicular, 2 pieces. 2-bone underlying lesion of larger amputation, 2 pieces, following decalcification. 3-smaller distal toe tip, perpendicular, 1 piece, following decalcification. (LG)* As of May 13, 2023, the specimen processing and staining is performed at [facility], [address] [place] [address] (CLIA#[id number]). Its performance characteristics determined by [facility]. Dany Thao M.D. Javascript Software Engineer of Surgical Pathology, Zuri Wright M.D. Javascript Software Engineer Cytopathology Phone #: [phone], On-Call Pathologist: [id number] Admission evaluation note * Kathrin MCKENZIE, Chace Hobbs: PERFORM, MODIFY, MODIFY, MODIFY Event Display: Admission Note Authored Date: Patient: ??VARINDER WEBSTER ? Age:??84 Years?Sex:??Male?:??1940?LOC:??[facility]?? Chief Complaint/Reason for Consultation from [facility], redness in L foot, open wound. History of Present Illness 84 Y/O M with PMH of dementia (non-verbal), DM, Hx of Subdural hematoma, seizure disorder who was brought from SNF for evaluation of diabetic foot infection. ?? History is limited as patient is nonverbal. He was brought to ED for evaluation of Lt foot wound infection. ?? In the ED: - Afebrile, HR 80s-90s, BP 120s/60s-70s mmHg, on RA. - Labs: CBC (WBC 11.8, Hg 11.6, Plt 284), BMP (Cr 0.9, HCO3 21), LA 2.5 -> 1.7, CRP 12.5. - CT Lt LE: 1. 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 2. The abnormal first MTP joint is surrounded by a rim of presumably infected fluid. Small specks of gas are noted within the abnormal bone, within the fluid, and in close related soft tissues. 3. No acute bone or joint abnormality seen hindfoot or midfoot. ?? He received vancomycin, 1 L of fluid, 0.5 mg of Dilaudid. Review of Systems unable to obtain. Objective Vital Signs?? Temperature: 97.8 DegF (02/14/25 23:10:00) Temperature Route: Oral (02/14/25 23:10:00) Pulse Rate: 88 bpm (02/14/25 23:10:00) Respiratory Rate: 20 br/min (02/14/25 23:15:00) Systolic Blood Pressure: 128 mm Hg (02/14/25 23:10:00) Diastolic Blood Pressure: 66 mm Hg (02/14/25 23:10:00) Blood pressure sites: Arm, left (02/14/25 23:10:00) Mean Arterial Pressure: 87 mm Hg (02/14/25 23:10:00) Pulse Pressure: 62 mm Hg (02/14/25 23:10:00) Oxygen Saturation:??93 %??Low (02/14/25 23:10:00) Mode of Delivery (Oxygen): Room air (02/14/25 23:10:00) Early Warning Score: 4 (02/14/25 23:15:56) ? Physical Exam Constitutional: Alert, in no acute distress. Head: Normocephalic. Ear, Nose and Throat: mucous membranes moist. Ears and nose - no obvious deformities. Neck: No JVD. Respiratory:??Equal bilateral air entry. No wheezing or rhonchi.??No use of accessory muscles. Cardiovascular:??S1 S2 regular. No murmurs, rubs or gallops. Gastrointestinal:??Abdomen soft, non-tender, non-distended. Extremities: Left lower extremity with necrotic wound to the medial base of L1 with surrounding erythema extending to the mid foot. There is no purulence able to be expressed. Neurological: Non verbal Musculoskeletal:??No gross deformities on inspection. .?? Psychiatric: Normal mood and affect. Assessment/Plan Diagnoses Dementia ??(F03.90) Diabetes mellitus ??(E11.9) Diabetic foot infection ??(E11.628) Osteomyelitis ??(M86.9) Seizure disorder ??(G40.909) Septic arthritis ??(M00.9) ?? Assessment:??84 Y/O M with PMH of dementia (non-verbal), DM, Hx of Subdural hematoma, seizure disorder who was brought from SNF for evaluation of diabetic foot infection. ?? Diabetic foot infection (E11.628):Osteomyelitis ??(M86.9):Septic arthritis ??(M00.9) ??continue vancomycin and Zosyn.??Blood culture were sent. Vascular following with plan for OR in AM. Will consultID.? Diabetes mellitus (E11.9):??insulin sliding scale and hypoglycemia protocol.?? Seizure disorder (G40.909):??continue carbamazepine Dementia (F03.90):??Nonverbal at baseline ?? VTE Prophylaxis:??heparin SC Code Status:??DNR/DNI per MOLST form.?Order Code Status:??Code Status Ordered ? Histories Allergies Allergies ?(Active and Proposed Allergies Only) No Known Medication Allergies? (Severity: Unknown severity, Onset: Unknown) ? Past Medical History/Problem List No problems documented. ? Past Surgical History No surgery history documented. ? Social History No social history documented. ? Family History No Family History documented. ? Medications Home Medications Acetaminophen (Tylenol 325 mg oral tablet)??650 Milligram 2 tablet By Mouth Every 8 hours Acetaminophen (Tylenol Extra Strength 500 mg oral tablet)??1 tab(s) 500 Milligram By Mouth Every 8 hours as needed Moderate Pain/Fever >100.4 F Betamethasone Topical (betamethasone topical dipropionate 0.05% cream)??1 marina Topically Daily Bisacodyl (Dulcolax 10 mg rectal suppository)??1 suppository(ies) 10 Milligram Rectally Daily as needed as needed for constipation Carbamazepine (carBAMazepine 100 mg oral tablet, chewable)??200 Milligram 2 tablet Chew Daily at bedtime Carbamazepine (carBAMazepine 100 mg oral tablet, chewable)??100 Milligram 1 tablet Chew Daily carboxymethylcellulose??1 Drops Eyes, Both 4 times a day 0.25% Eye Drops Cefepime (cefepime 1 g injection)??1 gram Intramuscular Once for 1 Days Cefuroxime (cefuroxime 500 mg oral tablet)??1 tab(s) 500 Milligram By Mouth Every 12 hours Celecoxib (CeleBREX 100 mg oral capsule)??1 capsule 100 Milligram By Mouth 2 times a day Cholestyramine (cholestyramine 4 g/4.8 g oral powder for reconstitution)??4 gram By Mouth Daily Collagenase Topical (collagenase topical 250 u/gm ointment)??1 applicator Topically Daily Escitalopram (Lexapro 5 mg oral tablet)??2 tab(s) 10 Milligram By Mouth Daily Guaifenesin (Alley-Tussin Expectorant 100 mg/5 mL oral liquid)??10 Milliliter 200 Milligram By MouthEvery 4 hours as needed Cough and Congestion Hydromorphone (Dilaudid 2 mg oral tablet)??1 tab(s) 2 Milligram By Mouth Daily Prior to wound care Hydromorphone (Dilaudid 2 mg oral tablet)??1 tab(s) 2 Milligram By Mouth Every 8 hours as needed Pain , Severe Lidocaine Topical (Lidocaine 2% Topical)??1 marina Topically Daily as needed Pain , Moderate Loperamide (loperamide 2 mg oral capsule)??2 Milligram 1 capsule By Mouth 2 times a day Lorazepam (Ativan 0.5 mg oral tablet) 1 tab(s) 0.5 Milligram By Mouth Daily Prior to showers &AM care Methyl Salicylate-Menthol Topical (menthol-methyl salicylate 10%-15% topical cream)??1 applicator Topically Daily Applied to bilateral Knees and Left shoulder Milk of Magnesia (Milk of Magnesia 1200 mg/15 mL oral liquid)??30 Milliliter 2,400 Milligram By Mouth Daily as needed Constipation nalOXONE (nalOXONE 0.4 mg/mL injectable solution)??1 Milliliter 0.4 Milligram Intramuscular Once asneeded As Needed Ondansetron (ondansetron 2 mg/mL injectable solution)??2 Milliliter 4 Milligram IV Infusion Every 8hours as needed Nausea & Vomiting Ondansetron (ondansetron 4 mg oral tablet)??1 tab(s) 4 Milligram By Mouth Every 8 hours as needed Nausea & Vomiting PROCHLORperazine (prochlorperazine 25 mg rectal suppository)??1 suppository(ies) 25 Milligram Rectally Every 8 hours as needed Nausea & Vomiting PROCHLORperazine (prochlorperazine 5 mg oral tablet)??2 tab(s) 10 Milligram By Mouth Every 8 hours as needed Nausea & Vomiting PROCHLORperazine (prochlorperazine 5 mg/mL injectable solution)??2 Milliliter 10 Milligram Intramuscular Every 8 hours as needed as needed for nausea/vomiting Sodium Biphosphate-Sodium Phosphate (Fleet Enema 19 gm-7 gm rectal enema)??1 Each Rectally Daily asneeded as needed for constipation Trazodone (traZODone 50 mg oral tablet)??25 Milligram 0.5 tablet By Mouth Every 12 hours as needed Agitation ? Results Recent Labs BLOOD COUNT & DIFF WBC 11.8 k/mm3 (High)?? 02/14/2025 16:30 RBC 3.99 m/mm3 (Low)?? 02/14/2025 16:30 Hgb 11.6 Gm/dL (Low)?? 02/14/2025 16:30 Hct 37.1 % (Low)?? 02/14/2025 16:30 MCV 93.0 femtoliters ()?? 02/14/2025 16:30 MCH 29.1 pg ()?? 02/14/2025 16:30 MCHC 31.3 Gm/dL (Low)?? 02/14/2025 16:30 Platelet Count 284 k/mm3 ()?? 02/14/2025 16:30 RDW-SD 43.5 femtoliters ()?? 02/14/2025 16:30 MPV 9.3 femtoliters (Low)?? 02/14/2025 16:30 Nucleated RBC (Automated) 0.0 #/100 WBC'S ()?? 02/14/2025 16:30 Abs. NRBC 0.0 k/mm3 ()?? 02/14/2025 16:30 Abs. Neut 9.4 k/mm3 (High)?? 02/14/2025 16:30 Abs. Lymph 1.0 k/mm3 ()?? 02/14/2025 16:30 Abs. Edwards 1.2 k/mm3 ()?? 02/14/2025 16:30 Abs. Eo 0.1 k/mm3 ()?? 02/14/2025 16:30 Abs. Baso 0.0 k/mm3 ()?? 02/14/2025 16:30 Neut % 80.1 % (High)?? 02/14/2025 16:30 Lymph % 8.1 % (Low)?? 02/14/2025 16:30 Edwards % 10.3 % ()?? 02/14/2025 16:30 Eos % 0.4 % ()?? 02/14/2025 16:30 Baso % 0.3 % ()?? 02/14/2025 16:30 Imm Gran 0.8 % ()?? 02/14/2025 16:30 Abs. Imm Gran 0.1 k/mm3 ()?? 02/14/2025 16:30 ?? CHEM GENERAL Sodium 136 mmol/L ()?? 02/14/2025 16:30 Potassium 4.6 mmol/L ()?? 02/14/2025 16:30 Chloride 104 mmol/L ()?? 02/14/2025 16:30 Bicarbonate Level 21 mmol/L (Low)?? 02/14/2025 16:30 Anion Gap 11 mmol/L ()?? 02/14/2025 16:30 Glucose Level 115 mg/dL (High)?? 02/14/2025 16:30 Glucose, POC 111 mg/dL (High)?? 02/14/2025 23:10 BUN 23 mg/dL ()?? 02/14/2025 16:30 Creatinine-Blood 0.90 mg/dL ()?? 02/14/2025 16:30 Estimated GFR Creatinine 84 ML/MIN/1.73 M2 ()?? 02/14/2025 16:30 Calcium 8.4 mg/dL (Low)?? 02/14/2025 16:30 Magnesium 2.4 mg/dL (High)?? 02/14/2025 16:30 Protein, Total 6.6 Gm/dL ()?? 02/14/2025 16:30 Albumin 2.8 Gm/dL (Low)?? 02/14/2025 16:30 AG Ratio 0.7 ()?? 02/14/2025 16:30 Alkaline Phosphatase 83 units/L ()?? 02/14/2025 16:30 AST (SGOT) 23 units/L ()?? 02/14/2025 16:30 ALT (SGPT) 18 units/L ()?? 02/14/2025 16:30 Bilirubin, Total 0.2 mg/dL ()?? 02/14/2025 16:30 Lactate 1.7 mmol/L ()?? 02/14/2025 21:07 C-Reactive Protein 12.5 mg/dL (High)?? 02/14/2025 16:30 ? Electronically Signed on 02/15/25 07:00 AM Kathrin MCKENZIE, hCace Hobbs Procedure * Event Display: Cardiac Rhythm Strips Authored Date: * Event Display: Cardiac Rhythm Strips Authored Date: * Event Display: Cardiac Rhythm Strips Authored Date: Hospital Progress note * Cheikh MCKENZIE, Yifan Macario: PERFORM Event Display: Progress Note Hospital Authored Date: Patient: ??VARINDER WEBSTER ? Age:??84 Years?Sex:??Male?:??1940?LOC:??[facility]?? Subjective 02/23: Accepted patient under my care at 7AM. Chart reviewed, saw and examined patient.?Reviewedwith Vascular PA??(PA);??she reiterated??no need for antibiotics, and okay to start on DVT prophylaxis; Lovenox started.?Patient also continues??on??Unasyn??per??prior MD;??have discussed with ID (Escobar),??okay to stop Unasyn given??source control. ?? Review of Systems Unable to perform Objective Measurements?? Weight: 58.4 kg (02/20/25) ?? Vital Signs?? Temperature: 98.1 DegF (02/23/25 11:19:00) Temperature Route: Axillary (02/23/25 11:19:00) Pulse Rate:??95 bpm??High (02/23/25 11:19:00) Respiratory Rate: 18 br/min (02/23/25 11:19:00) Systolic Blood Pressure: 111 mm Hg (02/23/25 11:19:00) Diastolic Blood Pressure: 61 mm Hg (02/23/25 11:19:00) Blood pressure sites: Arm, right (02/23/25 11:19:00) Mean Arterial Pressure: 78 mm Hg (02/23/25 11:19:00) Pulse Pressure: 50 mm Hg (02/23/25 11:19:00) Oxygen Saturation: 99 % (02/23/25 11:19:00) Mode of Delivery (Oxygen): Room air (02/23/25:19:00) Early Warning Score: 0 (02/23/25:25:16) ? Pain Scores?? No qualifying data available. ?? Intake/Output? 02/14 21:43 02/23 07:00 02/22 07:00 02/21 07:00 02/20 07:00 ?? 02/23 12:48 02/23 12:48 02/23 06:59 02/22 06:59 02/21 06:59 Intake ? 1720 ?0 ?0 ?360 ?120 Output ? 3752 ?151 ? 1650 ?950 ?300 Net Total ?-2032 ? -151 ?-1650 ? -590 ? -180 ? Urine Count ?2 ?0 ?0 ?1 ?1 Diaper Count ? 18 ?2 ?0 ?1 ?2 ? Physical Exam Constitutional: Alert, in no acute distress. Head EENT: PERRL.??NCAT. Neck: Supple. No obvious LAD. Respiratory: CTAB. No use of accessory muscles. Cardiovascular: S1S2 present. No obvious JVD. Gastrointestinal: Abdomen soft, non-tender, non-distended. Bowel sounds present. Genitourinary: No CVA tenderness. Genital exam deferred. Extremities: No lower extremity pitting??edema. No cyanosis or clubbing. Status post L AKA, dressing intact Neurologic: Alert, did not speak or follow commands in [place]er or [place]ian _ Inpatient Medications Medications (23) Active SCHEDULED: (7) Acetaminophen 325 mg Tablet (acetaminophen 325 mg oral tablet) ??975 mg, By Mouth, Every 8 hours Carbamazepine 100 mg Chewable Tablet (carBAMazepine 100 mg oral tablet, chewable) ??100 mg, Chew, Daily Carbamazepine 100 mg Chewable Tablet (carBAMazepine 100 mg oral tablet, chewable) ??200 mg, Chew, Daily at bedtime Enoxaparin 40 mg Inj (Enoxaparin Inj) ??40 mg 0.4 mL, Subcutaneous Injection, Daily Escitalopram 10 mg Tablet (Lexapro 10 mg oral tablet) ??10 mg, By Mouth, Daily Insulin Lispro 100 units/mL Inj (Insulin LISPRO Sliding Scale) ??2-8 units, Subcutaneous Injection,3 times a day before meals NaCl 0.9% Flush 3ml (NaCL 0.9% Flush) ??3 mL, IV Push, Every 8 hours CONTINUOUS: (0) PRN: (16) Albuterol 0.083% Inhalation Solution (Albuterol 0.083% inhalation guy) ??2.5 mg 3 mL, BAND Nebulizer, Every 4 hours Dextrose 50 % Vial (50 mL) (Dextrose 50% Inj Syringe (25Gm)) ??12.5 Gm 25 mL, IV Push Slowly, Every20 minutes Dextrose 50 % Vial (50 mL) (Dextrose 50% Inj Syringe (25Gm)) ??25 Gm 50 mL, IV Push Slowly, Every 15 minutes Dextrose Inj Syringe (Dextrose 50% Inj Syringe (25Gm)) ??12.5 Gm, IV Push Slowly, Every 20 minutes Dextrose Inj Syringe (Dextrose 50% Inj Syringe (25Gm)) ??25 Gm, IV Push Slowly, Every 15 minutes Glucagon 1 mg Inj (Glucagon Inj) ??1 mg, Intramuscular, Once Glucose 40% Gel (15 Gm) (Glucose Gel) ??15 Gm, By Mouth, Every 20 minutes Glucose 40% Gel (15 Gm) (Glucose Gel) ??30 Gm, By Mouth, Every 20 minutes Melatonin 3 mg Tablet (Melatonin Tablet) ??3 mg, By Mouth, Daily at bedtime NaCl 0.9% Flush 3ml (NaCL 0.9% Flush) ??3 mL, IV Push, Every 8 hours Ondansetron 2mg/mL Inj (2mL Vial) (Zofran Inj) ??4 mg, IV Push, Once OxyCODONE 5 mg IR Tablet (oxyCODONE 5 mg oral tablet) ??2.5 mg, By Mouth, 2 times a day Polyethylene Glycol 17 Gm Powder (MiraLax Powder) ??17 Gm 1 pack/packet, By Mouth, Daily Senna Tablet ??8.6 mg 1 tablet, By Mouth, 2 times a day Simethicone 80 mg Chewable Tablet (Simethicone Tablet) ??80 mg, Chew, 3 times a day Trazodone 50 mg Tablet (traZODone 50 mg oral tablet) ??25 mg, By Mouth, Every 12 hours ? 72 Hour Antibiotic History Stopped Antibiotics Stop Date/Time Last Administered First Administered Ampicillin-Sulbactam??3 Gm, 100 mL/hr, IVPB, Every 6 hours 02/23/2025 12:43 02/23/2025 08:15 02/19/2025 11:02 ? Results Recent Labs BLOOD COUNT & DIFF WBC 8.5 k/mm3 ()?? 02/23/2025 04:55 RBC 3.49 m/mm3 (Low)?? 02/23/2025 04:55 Hgb 10.2 Gm/dL (Low)?? 02/23/2025 04:55 Hct 32.8 % (Low)?? 02/23/2025 04:55 MCV 94.0 femtoliters ()?? 02/23/2025 04:55 MCH 29.2 pg ()?? 02/23/2025 04:55 MCHC 31.1 Gm/dL (Low)?? 02/23/2025 04:55 Platelet Count 371 k/mm3 ()?? 02/23/2025 04:55 RDW-SD 48.2 femtoliters (High)?? 02/23/2025 04:55 MPV 9.3 femtoliters (Low)?? 02/23/2025 04:55 Nucleated RBC (Automated) 0.0 #/100 WBC'S ()?? 02/23/2025 04:55 Abs. NRBC 0.0 k/mm3 ()?? 02/23/2025 04:55 ?? CHEM GENERAL Sodium 140 mmol/L ()?? 02/23/2025 04:55 Potassium HEMOLYZED mmol/L ()?? 02/23/2025 04:55 Chloride 110 mmol/L (High)?? 02/23/2025 04:55 Bicarbonate Level 18 mmol/L (Low)?? 02/23/2025 04:55 Anion Gap 12 mmol/L ()?? 02/23/2025 04:55 Glucose Level 128 mg/dL (High)?? 02/23/2025 04:55 Glucose, POC 189 mg/dL (High)?? 02/23/2025 11:23 BUN 22 mg/dL ()?? 02/23/2025 04:55 Creatinine-Blood 0.87 mg/dL ()?? 02/23/2025 04:55 Estimated GFR Creatinine 85 ML/MIN/1.73 M2 ()?? 02/23/2025 04:55 Calcium 8.3 mg/dL (Low)?? 02/23/2025 04:55 Phosphorus 2.1 mg/dL (Low)?? 02/23/2025 04:55 Magnesium 2.5 mg/dL (High)?? 02/23/2025 04:55 Protein, Total 6.7 Gm/dL ()?? 02/22/2025 09:35 Albumin 3.1 Gm/dL (Low)?? 02/22/2025 09:35 Alkaline Phosphatase 82 units/L ()?? 02/22/2025 09:35 AST (SGOT) 16 units/L ()?? 02/22/2025 09:35 ALT (SGPT) 15 units/L ()?? 02/22/2025 09:35 Bilirubin, Total 0.2 mg/dL ()?? 02/22/2025 09:35 Bilirubin, Direct 0.1 mg/dL ()?? 02/22/2025 09:35 Bilirubin, Indirect 0.1 mg/dL ()?? 02/22/2025 09:35 C-Reactive Protein 9.4 mg/dL (High)?? 02/22/2025 09:35 ?? HEME OTHER Sed Rate 85 mm/hr (High)?? 02/22/2025 09:36 ? Assessment/Plan Diagnoses Dementia ??(F03.90) Diabetes mellitus ??(E11.9) Diabetic foot infection ??(E11.628) Osteomyelitis ??(M86.9) Seizure disorder ??(G40.909) Septic arthritis ??(M00.9) ?? Assessment:??84-year-old male with a left diabetic foot infection which we are treating as osteomyelitis.??Superimposed on dementia and diabetes. 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 ? Osteomyelitis (M86.9): Septic arthritis (M00.9): Wound cx growing proteus and E faecalis?? Per ID, previously DC Vanc and Zosyn switched to IV Unasyn Surgery recommended AKA as not a candidate for revasc. s/p left??AKA :??02/20 Doing well postoperatively, ID and surgery have both signed off ?? -Continue inpatient care??pending placement -Per pillowcase turner, facility not able to take him 02/23 -Have clarified with ID and surgery 02/23: No indication for??antibiotics and they are stopped -monitor for perioperative complication and anemia -pain control -DVT prophylaxis resumed ?? Diabetes mellitus (E11.9):??-Continue insulin, hypoglycemic precautions. 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 ? OMN/DC planning: Patient stable for discharge; discussed with Salesperson [employer], facility unable to takeon the weekend.?? Will plan for discharge tomorrow. ?? Please note, dictation software ([employer])??may have been used in the preparation of this note, and may have generated unintentional errors in speech recognition. If there are any questions going forward, please reach out for clarification.? Electronically Signed on 02/23/25 12:49 PM Cheikh MCKENZIE, Marzena Blackman: VERIFY, PERFORM, SIGN Event Display: Progress Note Hospital Authored Date: [id number] Patient: VARINDER WEBSTER Age: 84 years Sex: Male : 1940 Associated Diagnoses: None Author: Marzena Hall Findings Problem Related to Alteration in Tissue Perfusion : Alteration in Tissue Perfusion 02/22/2025 9:00 EST Alteration Tissue Perfusion related to Infection, Vascular Surgery, Other: L aka Goals & Outcomes: Tissue perfusion Pt will maintain optimal perfusion to vital organs, Pt will resume/maintain adequate peripheral circulation, Pt will experience improved tissue perfusion, Pt will achieve progressive healing of injured area, Pt will be hemodynamically stable, Pt will achieve no rmal/improved/optimal neuro status, Pt will return to baseline respiratory function, Pt will maintain CMS to affected extremity, Pt will be monitored for development of embolic event Interventions: Tissue Perfusion Assess for s/s of infection of lines, drains, incisions, Assess/Monitor cardiac dysrhythmias, Assess/Monitor CMS to affected extremity, Assess/Monitor peripheral pulses & capillary refill, Assess/Monitor presence & degree of edema, Elevate limbs, Position forcomfort Goals/Interventions, Tissue Perfusion Yes Tissue Perfusion, Problem Start 02/14/2025 17:33 Reviewed Plan with, Tissue Perfusion Patient Patient Progression, Tissue Perfusion Pt progressing according to plan . Evaluation Pt AO x1. +BM, linen changed and incontinence care done. antibiotics given. Medications taken crushed with applesauce. See CIS and biophysical for full assessments. . Electronically Signed on 02/22/25 05:36 PM Marzena Hall * Say Santos MD, Edgar Hobbs: PERFORM Event Display: Progress Note Hospital Authored Date: Patient: ??VARINDER WEBSTER ? Age:??84 Years?Sex:??Male?:??1940?LOC:??[facility]?? Subjective Patient is seen at bedside??for left diabetic foot infection now s/p left AKA??yesterday 02/20 with vascular C/w Unasyn pending OR cultures dementia with limited history?? will need rehab next 24-48 hours Review of Systems limited Allergies Allergies ?(Active and Proposed Allergies Only) No Known Medication Allergies? (Severity: Unknown severity, Onset: Unknown) ? Objective Vital Signs?? Temperature: 97.8 DegF (02/22/25 08:00:00) Temperature Route: Axillary (02/22/25 08:00:00) Pulse Rate: 77 bpm (02/22/25 08:00:00) Respiratory Rate: 18 br/min (02/22/25 08:00:00) Systolic Blood Pressure: 123 mm Hg (02/22/25 08:00:00) Diastolic Blood Pressure: 73 mm Hg (02/22/25 08:00:00) Blood pressure sites: Arm, right (02/22/25 08:00:00) Mean Arterial Pressure: 90 mm Hg (02/22/25 08:00:00) Pulse Pressure: 50 mm Hg (02/22/25 08:00:00) Oxygen Saturation: 98 % (02/22/25 08:00:00) Mode of Delivery (Oxygen): Room air (02/22/25 08:00:00) Early Warning Score: 2 (02/22/25 10:16:08) ? Intake/Output? 12/12 21:43 02/22 07:00 02/21 07:00 02/20 07:00 02/19 07:00 ?? 02/22 11:23 02/22 11:23 02/22 06:59 02/21 06:59 02/20 06:59 Intake ? 1720 ?0 ?360 ?120 ?0 Output ? 1951 ?0 ?950 ?300 ?400 Net Total ? -231 ?0 ? -590 ? -180 ? -400 ? Urine Count ?2 ?0 ?1 ?1 ?0 Diaper Count ? 17 ?0 ?1 ?0 ?4 ? Physical Exam General: sleepy , not oriented not in??distress Head and neck: Atraumatic, no neck swelling Eye: no injection or jaundice, EOMI. Cardiac: RRR, no murmurs, gallops or rubs, no S3 or S4. Pulmonary: Normal breathing sounds bilaterally with good air entry with??no wheezing or??rhonchi Abdominal: No tenderness or rebound tenderness, normal BS, no HSM Skin: No rashes, jaundice or schritching harris Extremities: No edema, no swelling or varicose veins, s/p left AKA Neuro: sleepy , not oriented X3, no focal weakness. Psych: Not anxious _ 72 Hour Antibiotic History Active Antibiotics Calendar Day Last Administered First Administered Ampicillin-Sulbactam??3 Gm, 100 mL/hr, IVPB, Every 6 hours ?4 02/22/2025 09:58 02/19/2025 11:02 ? Results Recent Labs BLOOD COUNT & DIFF WBC 9.3 k/mm3 ()?? 02/22/2025 09:36 RBC 3.85 m/mm3 (Low)?? 02/22/2025 09:36 Hgb 11.2 Gm/dL (Low)?? 02/22/2025 09:36 Hct 36.1 % (Low)?? 02/22/2025 09:36 MCV 93.8 femtoliters ()?? 02/22/2025 09:36 MCH 29.1 pg ()?? 02/22/2025 09:36 MCHC 31.0 Gm/dL (Low)?? 02/22/2025 09:36 Platelet Count 375 k/mm3 ()?? 02/22/2025 09:36 RDW-SD 47.8 femtoliters (High)?? 02/22/2025 09:36 MPV 9.0 femtoliters (Low)?? 02/22/2025 09:36 Nucleated RBC (Automated) 0.0 #/100 WBC'S ()?? 02/22/2025 09:36 Abs. NRBC 0.0 k/mm3 ()?? 02/22/2025 09:36 ?? CHEM GENERAL Sodium 142 mmol/L ()?? 02/22/2025 09:35 Potassium 4.5 mmol/L ()?? 02/22/2025 09:35 Chloride 111 mmol/L (High)?? 02/22/2025 09:35 Bicarbonate Level 19 mmol/L (Low)?? 02/22/2025 09:35 Anion Gap 12 mmol/L ()?? 02/22/2025 09:35 Glucose Level 230 mg/dL (High)?? 02/22/2025 09:35 Glucose, POC 136 mg/dL (High)?? 02/22/2025 08:03 BUN 20 mg/dL ()?? 02/22/2025 09:35 Creatinine-Blood 0.90 mg/dL ()?? 02/22/2025 09:35 Estimated GFR Creatinine 84 ML/MIN/1.73 M2 ()?? 02/22/2025 09:35 Calcium 8.4 mg/dL (Low)?? 02/22/2025 09:35 Phosphorus 2.1 mg/dL (Low)?? 02/22/2025 09:35 Magnesium 2.3 mg/dL ()?? 02/22/2025 09:35 Protein, Total 6.7 Gm/dL ()?? 02/22/2025 09:35 Albumin 3.1 Gm/dL (Low)?? 02/22/2025 09:35 Alkaline Phosphatase 82 units/L ()?? 02/22/2025 09:35 AST (SGOT) 16 units/L ()?? 02/22/2025 09:35 ALT (SGPT) 15 units/L ()?? 02/22/2025 09:35 Bilirubin, Total 0.2 mg/dL ()?? 02/22/2025 09:35 Bilirubin, Direct 0.1 mg/dL ()?? 02/22/2025 09:35 Bilirubin, Indirect 0.1 mg/dL ()?? 02/22/2025 09:35 Lactate 1.4 mmol/L ()?? 02/21/2025 07:23 C-Reactive Protein 9.4 mg/dL (High)?? 02/22/2025 09:35 ?? HEME OTHER Sed Rate 85 mm/hr (High)?? 02/22/2025 09:36 ? Abnormal Labs ?? BLOOD COUNT & DIFF Abs. NRBC?0.0 k/mm3 ()?02/22/2025 09:36 Hct?36.1 % (Low)?02/22/2025 09:36 Hgb?11.2 Gm/dL (Low)?02/22/2025 09:36 MCHC?31.0 Gm/dL (Low)?02/22/2025 09:36 MPV?9.0 femtoliters (Low)?02/22/2025 09:36 Nucleated RBC (Automated)?0.0 #/100 WBC'S ()?02/22/2025 09:36 RBC?3.85 m/mm3 (Low)?02/22/2025 09:36 RDW-SD?47.8 femtoliters (High)?02/22/2025:36 ?? CHEM GENERAL Albumin?3.1 Gm/dL (Low)?02/22/2025 09:35 Bicarbonate Level?19 mmol/L (Low)?02/22/2025:35 C-Reactive Protein?9.4 mg/dL (High)?02/22/2025 09:35 Calcium?8.4 mg/dL (Low)?02/22/2025 09:35 Chloride?111 mmol/L (High)?02/22/2025 09:35 Estimated GFR Creatinine?84 ML/MIN/1.73 M2 ()?02/22/2025 09:35 Glucose Level?230 mg/dL (High)?02/22/2025 09:35 Glucose, POC?136 mg/dL (High)?02/22/2025 08:03 Phosphorus?2.1 mg/dL (Low)?02/22/2025 09:35 ?? HEME OTHER Sed Rate?85 mm/hr (High)?02/22/2025 09:36 ?? Note: Critical results are displayed in red. ? Assessment/Plan ?Dementia ??(F03.90) Diabetes mellitus ??(E11.9) Diabetic foot infection ??(E11.628) Osteomyelitis ??(M86.9) Seizure disorder ??(G40.909) Septic arthritis ??(M00.9) ?? Assessment:??84-year-old male with a left diabetic foot infection which we are treating as osteomyelitis. Postop day 1 after debridement of his left diabetic foot infection. ?? Superimposed on dementia and diabetes. He is nonambulatory.??He requires total care at baseline. ?? Osteomyelitis (M86.9): Septic arthritis (M00.9): -wound cx growing proteus and E faecalis : ?? per ID DC Vanc and Zosyn switch to IV Unasyn Surgery following and per note may recommend AKA as not a candidate for revasc. s/p left ??AKA :?? 02/20 monitor for perioperative complication and anemia pain control ?? Diabetes mellitus (E11.9): Continue insulin, hypoglycemic precautions. 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 ?? VTE Prophylaxis:??now s/p left AKA Discharge Planning:??AKA?02/20, IV antibiotics, OR cultures Code Status: DNR/DNI ? Electronically Signed on 02/22/25 11:25 AM Say Santos MD, Edgar Hobbs Note * Ivan MCKENZIE, Mary: PERFORM Event Display: Discharge/Transfer Note Hospital Authored Date: Patient: ??VARINDER WEBSTER ? Age:??84 Years?Sex:??Male?:??1940?LOC:??[facility]?? Patient Information Discharge Location: Primary Care Physician: Azalea Mancilla NP Admit Date/Time: 02/14/2025 21:43 Discharge Disposition Discharge Disposition: Fdc Facility/Rehab Discharge Diagnosis Osteomyelitis (M86.9) Septic arthritis (M00.9) Diabetic foot infection (E11.628) Diabetes mellitus (E11.9) Dementia (F03.90) Seizure disorder (G40.909) _ Discharge Medications Acetaminophen (Tylenol 325 mg oral tablet)??650 Milligram 2 tablet By Mouth Every 8 hours Acetaminophen (Tylenol Extra Strength 500 mg oral tablet)??1 tab(s) 500 Milligram By Mouth Every 8 hours as needed Moderate Pain/Fever >100.4 F Betamethasone Topical (betamethasone topical dipropionate 0.05% cream)??1 marina Topically Daily Bisacodyl (Dulcolax 10 mg rectal suppository)??1 suppository(ies) 10 Milligram Rectally Daily as needed as needed for constipation Carbamazepine (carBAMazepine 100 mg oral tablet, chewable)??200 Milligram 2 tablet Chew Daily at bedtime Carbamazepine (carBAMazepine 100 mg oral tablet, chewable)??100 Milligram 1 tablet Chew Daily carboxymethylcellulose??1 Drops Eyes, Both 4 times a day 0.25% Eye Drops Celecoxib (CeleBREX 100 mg oral capsule)??1 capsule 100 Milligram By Mouth 2 times a day Cholestyramine (cholestyramine 4 g/4.8 g oral powder for reconstitution)??4 gram By Mouth Daily Collagenase Topical (collagenase topical 250 u/gm ointment)??1 applicator Topically Daily Escitalopram (Lexapro 5 mg oral tablet)??2 tab(s) 10 Milligram By Mouth Daily Guaifenesin (Alley-Tussin Expectorant 100 mg/5 mL oral liquid)??10 Milliliter 200 Milligram By MouthEvery 4 hours as needed Cough and Congestion Hydromorphone (Dilaudid 2 mg oral tablet)??1 tab(s) 2 Milligram By Mouth Daily Prior to wound care Hydromorphone (Dilaudid 2 mg oral tablet)??1 tab(s) 2 Milligram By Mouth Every 8 hours as needed Pain , Severe Lidocaine Topical (Lidocaine 2% Topical)??1 marina Topically Daily as needed Pain , Moderate Loperamide (loperamide 2 mg oral capsule)??2 Milligram 1 capsule By Mouth 2 times a day Lorazepam (Ativan 0.5 mg oral tablet) 1 tab(s) 0.5 Milligram By Mouth Daily Prior to showers &AM care Methyl Salicylate-Menthol Topical (menthol-methyl salicylate 10%-15% topical cream)??1 applicator Topically Daily Applied to bilateral Knees and Left shoulder Milk of Magnesia (Milk of Magnesia 1200 mg/15 mL oral liquid)??30 Milliliter 2,400 Milligram By Mouth Daily as needed Constipation nalOXONE (nalOXONE 0.4 mg/mL injectable solution)??1 Milliliter 0.4 Milligram Intramuscular Once asneeded As Needed Ondansetron (ondansetron 2 mg/mL injectable solution)??2 Milliliter 4 Milligram IV Infusion Every 8hours as needed Nausea & Vomiting Ondansetron (ondansetron 4 mg oral tablet)??1 tab(s) 4 Milligram By Mouth Every 8 hours as needed Nausea & Vomiting PROCHLORperazine (prochlorperazine 25 mg rectal suppository)??1 suppository(ies) 25 Milligram Rectally Every 8 hours as needed Nausea & Vomiting PROCHLORperazine (prochlorperazine 5 mg oral tablet)??2 tab(s) 10 Milligram By Mouth Every 8 hours as needed Nausea & Vomiting PROCHLORperazine (prochlorperazine 5 mg/mL injectable solution)??2 Milliliter 10 Milligram Intramuscular Every 8 hours as needed as needed for nausea/vomiting Sodium Biphosphate-Sodium Phosphate (Fleet Enema 19 gm-7 gm rectal enema)??1 Each Rectally Daily asneeded as needed for constipation Trazodone (traZODone 50 mg oral tablet)??25 Milligram 0.5 tablet By Mouth Every 12 hours as needed Agitation ? Discharge Medications Unchanged Acetaminophen (Tylenol 325 mg oral tablet)2 tab(s) Oral every 8 hours. Acetaminophen (Tylenol Extra Strength 500 mg oral tablet)1 tab(s) Oral every 8 hours as needed Moderate Pain/Fever >100.4 F. Betamethasone Topical (betamethasone topical dipropionate 0.05% cream)1 marina Topically Daily. Bisacodyl (Dulcolax 10 mg rectal suppository)1 suppository(ies) Per rectum Daily as needed as needed for constipation. Carbamazepine (carBAMazepine 100 mg oral tablet, chewable)2 tab(s) Chew Daily at Bedtime. Carbamazepine (carBAMazepine 100 mg oral tablet, chewable)1 tab(s) Chew Daily. carboxymethylcellulose1 Drops Both eyes 4 times a day. 0.25% Eye Drops. Celecoxib (CeleBREX 100 mg oral capsule)1 capsule Oral twice a day. Cholestyramine (cholestyramine 4 g/4.8 g oral powder for reconstitution)4 gram Oral Daily. Collagenase Topical (collagenase topical 250 u/gm ointment)1 applicator Topically Daily. Escitalopram (Lexapro 5 mg oral tablet)2 tab(s) Oral Daily. Guaifenesin (Alley-Tussin Expectorant 100 mg/5 mL oral liquid)10 Milliliter Oral every 4 hours as needed Cough and Congestion. Hydromorphone (Dilaudid 2 mg oral tablet)1 tab(s) Oral Daily. Prior to wound care. Hydromorphone (Dilaudid 2 mg oral tablet)1 tab(s) Oral every 8 hours as needed Pain , Severe. Lidocaine Topical (Lidocaine 2% Topical)1 marina Topically Daily as needed Pain , Moderate. Loperamide (loperamide 2 mg oral capsule)1 capsule Oral twice a day. Lorazepam (Ativan 0.5 mg oral tablet)1 tab(s) Oral Daily. Prior to showers & AM care. Methyl Salicylate-Menthol Topical (menthol-methyl salicylate 10%-15% topical cream)1 applicator Topically Daily. Applied to bilateral Knees and Left shoulder. Milk of Magnesia (Milk of Magnesia 1200 mg/15 mL oral liquid)30 Milliliter Oral Daily as needed Constipation. nalOXONE (nalOXONE 0.4 mg/mL injectable solution)1 Milliliter Intramuscular once as needed. Ondansetron (ondansetron 2 mg/mL injectable solution)2 Milliliter Intravenous Infusion every 8 hours as needed Nausea & Vomiting. Ondansetron (ondansetron 4 mg oral tablet)1 tab(s) Oral every 8 hours as needed Nausea & Vomiting. PROCHLORperazine (prochlorperazine 25 mg rectal suppository)1 suppository(ies) Per rectum every 8 hours as needed Nausea & Vomiting. PROCHLORperazine (prochlorperazine 5 mg oral tablet)2 tab(s) Oral every 8 hours as needed Nausea & Vomiting. PROCHLORperazine (prochlorperazine 5 mg/mL injectable solution)2 Milliliter Intramuscular every 8 hours as needed as needed for nausea/vomiting. Sodium Biphosphate-Sodium Phosphate (Fleet Enema 19 gm-7 gm rectal enema)1 Each Per rectum Daily asneeded as needed for constipation. Trazodone (traZODone 50 mg oral tablet)0.5 tab(s) Oral every 12 hours as needed Agitation. Allergies Allergies ?(Active and Proposed Allergies Only) No Known Medication Allergies? (Severity: Unknown severity, Onset: Unknown) ? Future Appointments Monday2025 1:00 PM EST ?? Type: Post-Op With: Arun PEREZ, Ambika Ratliff Where: [facility] [address] [place] [address]- Status: Pending Hospital Course ?? 84-year-old male with a left diabetic foot infection which we are treating as osteomyelitis.??Superimposed on dementia and diabetes. He is nonambulatory. He is nonverbal. ??He requires total care at baseline.??He is status post left AKA 02/20??with??source control; per discussions with ID and Vascular??no further need for antibiotics and these are stopped on 02/23 as now he has achieved source??control. ?? Objective Assessment and Plan ?? Dementia ??(F03.90) Diabetes mellitus ??(E11.9) Diabetic foot infection ??(E11.628) Osteomyelitis ??(M86.9) Seizure disorder ??(G40.909) Septic arthritis ??(M00.9) ?? Assessment:? Osteomyelitis (M86.9): Septic arthritis (M00.9): Wound cx growing proteus and E faecalis?? Per ID, previously DC Vanc and Zosyn switched to IV Unasyn Surgery recommended AKA as not a candidate for revasc. s/p left??AKA :??02/20 Doing well postoperatively, ID and surgery have both signed off ? Diabetes mellitus (E11.9):??-Continue insulin, hypoglycemic precautions. ?? Dementia (F03.90) with??dysphagia: -Cont dysphagia level 1 ??diet with thickened liquids. ST evaluation while in rehab. ?? Measurements?? Weight: 58.4 kg (02/20/25) ?? Vital Signs?? Temperature: 97.7 DegF (02/24/25 08:25:00) Temperature Route: Oral (02/24/25 08:25:00) Pulse Rate: 74 bpm (02/24/25 08:25:00) Respiratory Rate: 17 br/min (02/24/25 08:25:00) Systolic Blood Pressure: 97 mm Hg (02/24/25 08:25:00) Diastolic Blood Pressure: 58 mm Hg (02/24/25 08:25:00) Blood pressure sites: Arm, right (02/24/25 08:25:00) Mean Arterial Pressure: 71 mm Hg (02/24/25 08:25:00) Pulse Pressure: 39 mm Hg (02/24/25 08:25:00) Oxygen Saturation: 100 % (02/24/25 08:25:00) Mode of Delivery (Oxygen): Room air (02/24/25 08:25:00) Early Warning Score: 3 (02/24/25 08:26:05) ? Pain Scores?? No qualifying data available. ?? Intake/Output? 02/14 21:43 02/24 07:00 02/23 07:00 02/22 07:00 02/21 07:00 ?? 02/24 10:46 02/24 10:46 02/24 06:59 02/23 06:59 02/22 06:59 Intake ? 1770 ? 50 ?0 ?0 ?360 Output ? 4552 ?0 ?951 ? 1650 ?950 Net Total ?-2782 ? 50 ? -951 ?-1650 ? -590 ? Urine Count ?2 ?0 ?0 ?0 ?2 Diaper Count ? 18 ?0 ?2 ?0 ?1 ? Mobility & Ambulation Level Mobility & Ambulation Level Activity Assistance: Maximum assistance (02/23/25) Activity Status ADL: Complete bedrest (02/23/25) Ambulation Patient Effort: Poor (02/16/25) Repositioning: Total care (02/16/25) ?? . Physical Exam awake,??nonverbal at baseline Intermittently follows simple commands Minimally interactive ?? Comfortable looking No wheezing or crackles on auscultation Normal S1, S2, no murmur Abdomen is soft, nontender Left AKA, dressing clean??and dry, right LE with no edema Surgical Procedures Amputation Toe 02/15/2025 10:48 Amputation Above Knee 02/20/2025 09:49 Pending Results Add On Lab Order ordered on 02/24/2025 BUN ordered on 02/20/2025 Basic Metabolic Panel ordered on 02/18/2025 CBC w/ Differential ordered on 02/20/2025 Creatinine ordered on 02/20/2025 Electrolytes ordered on 02/20/2025 Glucose Level ordered on 02/20/2025 Hemoglobin A1C (Monitoring) ordered on 02/22/2025 Magnesium Level ordered on 02/18/2025 Pathology Tissue Request ordered on 02/20/2025 Post Discharge Care Diet: ??Dysphagia Pureed (Level 1) Diet ?? Wound Care: ??Wound Site: left AKA Daily betadine paint to incision line; cover with kerlix wrap and stump sock. Change PRN for soiling. Daily Yes ?? Code Status: ??dnr dni ?? Discharge ?02/24/25 10:44:00 EST ?Order Comment:?? Home Health Face to Face ^[facility]Health[facility] Results Discharge Labs BACTERIOLOGY Deep Wound Culture Results Note (Abnormal)?? 02/15/2025 10:52 Blood Culture Results Final report ()?? 02/14/2025 15:52 Blood Culture Specimen Source BLOOD ()?? 02/14/2025 15:52 Blood Culture Isolate 1 Comment ()?? 02/14/2025 15:52 Blood Cult 2 Results Final report ()?? 02/14/2025 16:30 Blood Culture 2 Specimen Source BLOOD ()?? 02/14/2025 16:30 Blood Culture 2 Isolate 1 Comment ()?? 02/14/2025 16:30 Deep Culture Specimen Source SWAB ()?? 02/15/2025 10:52 ?? BLOOD BANK Blood Type O Positive ()?? 02/19/2025 05:34 Antibody Screen Negative ()?? 02/19/2025 05:34 ?? BLOOD COUNT & DIFF WBC 8.5 k/mm3 ()?? 02/23/2025 04:55 RBC 3.49 m/mm3 (Low)?? 02/23/2025 04:55 Hgb 10.2 Gm/dL (Low)?? 02/23/2025 04:55 Hct 32.8 % (Low)?? 02/23/2025 04:55 MCV 94.0 femtoliters ()?? 02/23/2025 04:55 MCH 29.2 pg ()?? 02/23/2025 04:55 MCHC 31.1 Gm/dL (Low)?? 02/23/2025 04:55 Platelet Count 371 k/mm3 ()?? 02/23/2025 04:55 RDW-SD 48.2 femtoliters (High)?? 02/23/2025 04:55 MPV 9.3 femtoliters (Low)?? 02/23/2025 04:55 Nucleated RBC (Automated) 0.0 #/100 WBC'S ()?? 02/23/2025 04:55 Abs. NRBC 0.0 k/mm3 ()?? 02/23/2025 04:55 Abs. Neut 4.8 k/mm3 ()?? 02/19/2025 06:50 Abs. Lymph 1.1 k/mm3 ()?? 02/19/2025 06:50 Abs. Edwards 0.5 k/mm3 ()?? 02/19/2025 06:50 Abs. Eo 0.1 k/mm3 ()?? 02/19/2025 06:50 Abs. Baso 0.1 k/mm3 ()?? 02/19/2025 06:50 Neut % 71.1 % ()?? 02/19/2025 06:50 Lymph % 15.8 % ()?? 02/19/2025 06:50 Edwards % 7.9 % ()?? 02/19/2025 06:50 Eos % 1.2 % ()?? 02/19/2025 06:50 Baso % 1.0 % ()?? 02/19/2025 06:50 Imm Gran 3.0 % ()?? 02/19/2025 06:50 Abs. Imm Gran 0.2 k/mm3 ()?? 02/19/2025 06:50 ?? CHEM GENERAL Sodium 140 mmol/L ()?? 02/23/2025 04:55 Potassium HEMOLYZED mmol/L ()?? 02/23/2025 04:55 Chloride 110 mmol/L (High)?? 02/23/2025 04:55 Bicarbonate Level 18 mmol/L (Low)?? 02/23/2025 04:55 Anion Gap 12 mmol/L ()?? 02/23/2025 04:55 Glucose Level 128 mg/dL (High)?? 02/23/2025 04:55 Glucose, POC 137 mg/dL (High)?? 02/24/2025 08:09 BUN 22 mg/dL ()?? 02/23/2025 04:55 Creatinine-Blood 0.87 mg/dL ()?? 02/23/2025 04:55 Estimated GFR Creatinine 85 ML/MIN/1.73 M2 ()?? 02/23/2025 04:55 Calcium 8.3 mg/dL (Low)?? 02/23/2025 04:55 Phosphorus 2.1 mg/dL (Low)?? 02/23/2025 04:55 Magnesium 2.5 mg/dL (High)?? 02/23/2025 04:55 Protein, Total 6.7 Gm/dL ()?? 02/22/2025 09:35 Albumin 3.1 Gm/dL (Low)?? 02/22/2025 09:35 AG Ratio 0.7 ()?? 02/14/2025 16:30 Alkaline Phosphatase 82 units/L ()?? 02/22/2025 09:35 AST (SGOT) 16 units/L ()?? 02/22/2025 09:35 ALT (SGPT) 15 units/L ()?? 02/22/2025 09:35 Bilirubin, Total 0.2 mg/dL ()?? 02/22/2025 09:35 Bilirubin, Direct 0.1 mg/dL ()?? 02/22/2025 09:35 Bilirubin, Indirect 0.1 mg/dL ()?? 02/22/2025 09:35 Lactate 1.4 mmol/L ()?? 02/21/2025 07:23 C-Reactive Protein 9.4 mg/dL (High)?? 02/22/2025 09:35 ?? HEME OTHER Sed Rate 85 mm/hr (High)?? 02/22/2025 09:36 ? Microbiology ?? Blood Culture 2 Results?? Completed?? Source: Blood Body Site: ?? Collected Dt/Tm: 02/14/2025 16:30 Last Updated Dt/Tm: 02/16/2025 07:12 ?? Blood Culture?? Completed?? Source: Blood Body Site: ?? Collected Dt/Tm: 02/14/2025 15:57 Last Updated Dt/Tm: 02/16/2025 07:12 ?? Blood Culture #2?? Completed?? Source: Blood Body Site: ?? Collected Dt/Tm: 02/14/2025 15:57 Last Updated Dt/Tm: 02/16/2025 07:12 ?? Blood Culture Result?? Completed?? Source: Blood Body Site: ?? Collected Dt/Tm: 02/14/2025 15:52 Last Updated Dt/Tm: 02/16/2025 07:12 ? Image ?CT Ext Lower W/ Contrast Left??02/14/2025 19:12 by Maryellen Delgado ?IMPRESSION: 1. 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 2. The abnormal first MTP joint is surrounded by a rim of presumably infected fluid. Small specks of gas are noted within the abnormal bone, within the fluid, and in close related soft tissues. 3. No acute bone or joint abnormality seen hindfoot or midfoot. ?? 35_ minutes spent on discharge Electronically Signed on 02/24/25 10:52 AM Ivan MCKENZIE, Mary * Kirsten Mccall RN: PERFORM, SIGN, VERIFY Event Display: Case Management Discharge Plan Authored Date: [id number] Patient: VARINDER WEBSTER Age: 84 years Sex: Male : 1940 Associated Diagnoses: None Author: Kirsten Mccall RN Discharge Plan Case Management Discharge Plan : Case Management Discharge Plan Data 02/24/2025 9:59 EST Discharge Level of Care at Discharge [facility] Discharge Nursing Homes/Rehab Facilities [facility] Service Categories #1 Occupational Therapy, Physical Therapy, Fdc Service Comments #1 You are being discharged to [facility] today at 11:30 am via ambulance. Name of Person Notified of Transfer HCP Laura and patient Electronically Signed on 02/24/25 10:05 AM Kirsten Mccall RN, RN, Sabina: PERFORM Event Display: Patient Education/Instruction Authored Date: [id number] Inpatient Adult Discharge Instructions. [address] [address] Name: VARINDER WEBSTER : 1940?? Visit: 02/14/2025 21:43?? Current Date: 02/24/2025 10:57 ?? Account: [id number]?? Inpatient Adult Discharge Instructions We would like to thank you for allowing us to assist you with your healthcare needs. The following includes patient education materials and information regarding your injury/illness. Our entire staffstrives to provide an excellent experience for our patients and their families. PLEASE ENSURE YOU FOLLOW-UP PER THE INSTRUCTIONS BELOW! ?? YOUR OPINION IS IMPORTANT TO US! Please complete the survey you may receive by mail or email. Your feedback will be used to make improvements to the healthcare experiences of our patients and their families. Surveys are administered by [employer] ?? If further treatment with your primary care physician or another doctor is recommended, it is important for you to keep the appointment. Call your primary care physician or return to the Emergency Department immediately if your condition worsens, fails to improve, or new symptoms develop. If you need to find a doctor, you can call [facility] Link for a referral at [phone] or toll free at [phone]) or log in to [email or web address].. ?? [facility], in keeping with [facility] guidance, no longer requires face masks for staff, patientsor visitors in most situations. Similiar to time spent indoors at other locations, there is the chance that you were exposed to repiratory viruses during your time with us (such as flu or COVID-19). If you develop symptoms concerning for a viral respiratory infection, please seek testing (and treatment if indicated) from your medical provider or home test kit. ?? You can view and manage your care through the patient portal or by using a health care marina of your choosing. [email or web address] is a website that allows you to securely view your medical information including your hospital discharge summary, office visit summaries, medications and follow-up visits. You can also request appointments, renew medications, and request access to your medical information using a health care [place] of your choosing, or just ask a question. You are entitled to know the individuals who participated in your treatment. This information is available within your medical record and will be provided upon your request. You can enroll at [email or web address] or register d uring your next office visit. You have been discharged from [facility], Patient Care Unit: M6??. If you have any questions regarding these instructions, including results of studies pending, afteryou leave, please call us and we will be happy to assist you 26/09. [facility] Your Care Team Attending Physician Mary Love MD?? Consulting Providers Mary Love MD?? Discharging Providers Mary Love MD Reason for Your Visit from [facility], redness in L foot, open wound.?? Your Diagnosis Dementia Diabetes mellitus Diabetic foot infection Seizure disorder Tests Performed Below is a partial list of the tests performed during your hospitalization. You may have had other tests and procedures not included in this list. Please discuss all test results with your provider. [id number] Albumin Level Basic Metabolic Panel Blood Culture Blood Culture #2 Blood Culture 2 Results Blood Culture Result CBC Comprehensive Metabolic Panel CRP Deep Wound Culture w/ Gram Smear ESR GLUCOSE POC Lactate Level LFT's Liver Function Panel Magnesium Level Mg Level Phosphorus Level Type and Screen CT Ext Lower W/ Contrast Left Add On Lab Order?? Albumin Level?? BUN?? Basic Metabolic Panel?? Blood Culture?? Blood Culture #2?? Blood Culture 2 Results?? Blood Culture Result?? C Reactive Protein (CRP)?? CBC?? CBC w/ Differential?? CT Ext Lower W/ Contrast Left?? Comprehensive Metabolic Panel?? Creatinine?? Electrolytes?? Glucose Level?? Glucose POC?? Hemoglobin A1C (Monitoring) (HEMOGLOBIN A1C)?? Hepatic Function Panel (Liver Function Panel)?? Lactic Acid Level (Lactate Level)?? Magnesium Level (Mg Level)?? Pathology Tissue Request ()?? Phosphorus Level?? Sedimentation Rate (ESR)?? Type and Screen?? Wound Deep Culture w/ Gram Smear (Deep Wound Culture w/ Gram Smear)?? Primary Care Provider Azalea Mancilla NP? Advance Directive Health Care Proxy on File Yes - Health Care Proxy Discharge Vitals Temperature: 97.7 DegF Weight: 58.4 kg Pulse Rate: 74 bpm ?? Respiratory Rate: 17 br/min ?? Systolic Blood Pressure: 97 mm Hg ?? Diastolic Blood Pressure: 58 mm Hg ?? Oxygen Saturation: 100 % ?? Studies Pending All studies ordered during this hospital stay have been completed unless listed below. Please discuss all pending results with your provider listed above in these instructions. ?? Add On Lab Order?? BUN?? Basic Metabolic Panel?? CBC w/ Differential?? Creatinine?? Electrolytes?? Glucose Level?? Hemoglobin A1C (Monitoring) (HEMOGLOBIN A1C)?? Magnesium Level (Mg Level)?? Pathology Tissue Request ()?? What to do next Instructions From Your Doctor ?? Orders??:Dysphagia Pureed (Level 1) Diet Care:Wound Site: left AKA ??Daily betadine paint to incision line; cover with kerlix wrap and stump sock. Change PRN for soiling. ??Daily ??Yes Status:dnr dni? 02/24/25 10:44:00 EST?? Scheduled Follow-Up Appointments Monday2025 1:00 PM EST ?? Type: Post-Op With: Arun PEREZ, Ambika Ratliff Where: [address] [place] [address]- Status: Pending Discharge Medications VARINDER WEBSTER :1940 Visit Date:02/14/2025 Medications: Please continue your medications until treatment is completed or stopped by your provider. Medications not listed below should be discontinued. Discuss any questions related to medications with your provider. What How Much When Instructions Next Dose Unchanged Acetaminophen (Tylenol 325 mg oral tablet) 2 tab(s) Oral Every 8 hours Ordering Physician: Dilma Jacob MD as needed Unchanged Acetaminophen (Tylenol Extra Strength 500 mg oral tablet) 1 tab(s) Oral Every 8 hours as needed for Moderate Pain/Fever >100.4 F as needed Unchanged Betamethasone Topical (betamethasone topical dipropionate 0.05% cream) 1 marina Topically Daily 02/25 Unchanged Carbamazepine (carBAMazepine 100 mg oral tablet, chewable) 2 tab(s) Chew Daily at Bedtime 02/24 at bedtime Unchanged Carbamazepine (carBAMazepine 100 mg oral tablet, chewable) 1 tab(s) Chew Daily 02/25 9am Unchanged carboxymethylcellulose 1 Drops Both eyes 4 times a day Special Instructions: 0.25% Eye Drops ?? 02/24 1200 Unchanged Celecoxib (CeleBREX 100 mg oral capsule) 1 capsule Oral Twice a day 02/24 2100 Unchanged Cholestyramine (cholestyramine 4 g/ 4.8 g oral powder for reconstitution) 4 gram Oral Daily 02/25 9am Unchanged Collagenase Topical (collagenase topical 250 u/ gm ointment) 1 applicator Topically Daily 02/25 9am Unchanged Escitalopram (Lexapro 5 mg oral tablet) 2 tab(s) Oral Daily 02/25 9am Unchanged Guaifenesin (Alley-Tussin Expectorant 100 mg/ 5 mL oral liquid) 10 Milliliter Oral Every 4 hours as needed for Cough and Congestion as needed Unchanged Hydromorphone (Dilaudid 2 mg oral tablet) 1 tab(s) Oral Daily Special Instructions: Prior to wound care ?? prior to wound care Unchanged Hydromorphone (Dilaudid 2 mg oral tablet) 1 tab(s) Oral Every 8 hours as needed for Pain , Severe as needed Unchanged Lidocaine Topical (Lidocaine 2% Topical) 1 marina Topically Daily as needed for Pain , Moderate as needed Unchanged Loperamide (loperamide 2 mg oral capsule) 1 capsule Oral Twice a day 02/24 2100 Unchanged Lorazepam (Ativan 0.5 mg oral tablet) 1 tab(s) Oral Daily Special Instructions: Prior to showers & AM care take as instructed Unchanged Methyl Salicylate-Menthol Topical (menthol-methyl salicylate 10%-15% topical cream) 1 applicator Topically Daily Special Instructions: Applied to bilateral Knees and Left shoulder ?? as needed Unchanged Milk of Magnesia (Milk of Magnesia 1200 mg/ 15 mL oral liquid) 30 Milliliter Oral Daily as needed for Constipation as needed Unchanged nalOXONE (nalOXONE 0.4 mg/ mL injectable solution) 1 Milliliter Intramuscular Once as needed for As Needed only as needed Unchanged Ondansetron (ondansetron 2 mg/ mL injectable solution) 2 Milliliter Intravenous Infusion Every 8 hours as needed for Nausea & Vomiting as needed Unchanged Ondansetron (ondansetron 4 mg oral tablet) 1 tab(s) Oral Every 8 hours as needed for Nausea & Vomiting as needed Unchanged PROCHLORperazine (prochlorperazine 25 mg rectal suppository) 1 suppository(ies) Per rectum Every 8 hours as needed for Nausea & Vomiting as needed Unchanged PROCHLORperazine (prochlorperazine 5 mg oral tablet) 2 tab(s) Oral Every 8 hours as needed for Nausea & Vomiting as instructed Unchanged PROCHLORperazine (prochlorperazine 5 mg/ mL injectable solution) 2 Milliliter Intramuscular Every 8 hours as needed for as needed for nausea/vomiting as instructed Unchanged Sodium Biphosphate-Sodium Phosphate (Fleet Enema 19 gm-7 gm rectal enema) 1 Each Per rectum Daily as needed for as needed for constipation as needed Unchanged Trazodone (traZODone 50 mg oral tablet) 0.5 tab(s) Oral Every 12 hours as needed for Agitation every 12 hour as needed ?? What How Much When Comments Stop Taking Cefepime (cefepime 1 g injection) 1 gram Intramuscular Once Duration: 1 Days Stop Taking Cefuroxime (cefuroxime 500 mg oral tablet) 1 tab(s) Oral Every 12 hours Prescription Given During Visit No new medications prescribed at time of discharge.?? Laboratory Results Below is a partial list of the most recent Laboratory test results done prior to this discharge. You may have had other tests and procedures not included in this list. Please discuss all test resultswith your provider. (02/15/2025) Surgical Pathology - Patient Name: VARINDER WEBSTER
Lab
Patient : 1940 (Age: 84)
Collection Date: 02/15/2025
Accession Date: 02/17/2025
Sign Out Date: 02/21/2025

Tissue Source:
1:LEFT FIRST TOE AND SECOND TOE

Final Diagnosis:
Left 1st and 2nd toes, amputation:
- Skin and subcutaneous tissue with gangrenous necrosis, ulceration and acute suppurative inflammation
- Bone with acute osteomyelitis.

Primary Pathologist:Natalya Aragon M.D.
electronically signed out by: Natalya Aragon M.D. / DARRELL

Gross Description:
Specimen labeled Left first toe and second toe. Received in formalin and consists of 2 toe amputation specimens that are 6.3 x 3.2 x 2.9 cm and 5.0 x 1.9 x1.7 cm, and a detached aggregate of grossly necrotic soft tissue and hemorrhagic bony tissue fragments that is 5.9 x 5.2 x 2.2 cm. Each toe amputation displays a markedly thickened and discolored toenail. The larger toe contains an ill-defined, grossly necrotic, ulcerated area that is 3.7 x 1.6 cm, and is focally present at the nearest skin and soft tissue resection margins. The entire distal toe tip of the smaller amputation is involved by a hernadez, crusted, ulcerated lesion that is 1.9 x 1.5 cm. The resection margins are differentially inked green (larger) and blue (smaller). Sectioning reveals focally softened, hemorrhagic bone beneath the ulcerated area of the larger toe amputation, with surrounding grossly necrotic soft tissue. The smaller amputation displays hernadez-white and yellow, firm bone. Survey Crew Chief sections are submitted, following decalcification.
1-skin and soft tissue resection margins, perpendicular, 2 pieces.
2-bone underlying lesion of larger amputation, 2 pieces, following decalcification.
3-smaller distal toe tip, perpendicular, 1 piece, following decalcification. & amp;nbsp;(LG)*

As of May 13, 2023, the specimen processing and staining is performed at [facility], [address] [place] [address] (CLIA#[id number]). Its performance characteristics determined by [facility]. Dany Thao M.D.Javascript Software Engineer of Surgical Pathology, Zuri Wright M.D. Javascript Software Engineer Cytopathology

Phone #: [phone], On-Call Pathologist: [id number] Albumin Level (02/19/2025) ???Albumin - 3.1 Gm/dL Basic Metabolic Panel (02/23/2025) ???Sodium - 140 mmol/L???Potassium - HEMOLYZED???Chloride - 110 mmol/L???Bicarbonate Level - 18 mmol/L???Anion Gap - 12 mmol/L???Glucose Level - 128 mg/dL???BUN - 22 mg/dL???Creatinine-Blood - 0.87 mg/dL???Estimated GFR Creatinine - 85 ML/MIN/1.73 M2???Calcium - 8.3 mg/dL Blood Culture (02/14/2025) ???Blood Culture Results - Final report???Blood Culture Specimen Source - BLOOD Blood Culture #2 (02/14/2025) ???Blood Cult 2 Results - Final report???Blood Culture 2 Specimen Source - BLOOD Blood Culture 2 Results (02/14/2025) ???Blood Culture 2 Isolate 1 - Comment Blood Culture Result (02/14/2025) ???Blood Culture Isolate 1 - Comment CBC (02/23/2025) ???WBC - 8.5 k/mm3???RBC - 3.49 m/mm3???Hgb - 10.2 Gm/dL???Hct - 32.8 %???MCV - 94.0 femtoliters???MCH - 29.2 pg???MCHC - 31.1 Gm/dL???Platelet Count - 371 k/mm3???RDW-SD - 48.2 femtoliters???MPV - 9.3 femtoliters???Nucleated RBC (Automated) - 0.0 #/100 WBC'S???Abs. NRBC - 0.0 k/mm3 Comprehensive Metabolic Panel (02/14/2025) ???Sodium - 136 mmol/L???Potassium - 4.6 mmol/L???Chloride - 104 mmol/L???Bicarbonate Level - 21 mmol/L???Anion Gap - 11 mmol/L???Glucose Level - 115 mg/dL???BUN - 23 mg/dL???Creatinine-Blood - 0.90 mg/dL???Estimated GFR Creatinine - 84 ML/MIN/1.73 M2???Calcium - 8.4 mg/dL???Protein, Total - 6.6 Gm/ dL???Albumin - 2.8 Gm/dL???AG Ratio - 0.7???Alkaline Phosphatase - 83 units/L???AST (SGOT) - 23 units/L???ALT (SGPT) - 18 units/L???Bilirubin, Total - 0.2 mg/dL CRP (02/22/2025) ???C-Reactive Protein - 9.4 mg/dL Deep Wound Culture w/ Gram Smear (02/15/2025) ???Deep Wound Culture Results - Note???Deep Culture Specimen Source - SWAB ESR (02/22/2025) ???Sed Rate - 85 mm/hr GLUCOSE POC (02/24/2025) ???Glucose, POC - 137 mg/dL Lactate Level (02/21/2025) ???Lactate - 1.4 mmol/L LFT's (02/15/2025) ???Protein, Total - 6.4 Gm/dL???Albumin - 2.6 Gm/dL???Alkaline Phosphatase - 79 units/L???AST (SGOT) - 17 units/L???ALT (SGPT) - 14 units/L???Bilirubin, Total - 0.3 mg/dL???Bilirubin, Direct - 0.1 mg/dL???Bilirubin, Indirect - 0.2 mg/dL Liver Function Panel (02/22/2025) ???Protein, Total - 6.7 Gm/dL???Albumin - 3.1 Gm/dL???Alkaline Phosphatase - 82 units/L???AST (SGOT) - 16 units/L???ALT (SGPT) - 15 units/L???Bilirubin, Total - 0.2 mg/dL???Bilirubin, Direct - 0.1 mg/dL???Bilirubin, Indirect - 0.1 mg/dL Magnesium Level (02/14/2025) ???Magnesium - 2.4 mg/dL Mg Level (02/23/2025) ???Magnesium - 2.5 mg/dL Phosphorus Level (02/23/2025) ???Phosphorus - 2.1 mg/dL Type and Screen (02/19/2025) ???Blood Type - O Positive???Antibody Screen - Negative Allergies (NKA means No Known Allergies) No Known Medication Allergies Problems No qualifying data available Education Materials Below is the list of Educational Leaflet Providered with your Discharge Instructions. Firework Ignite Patient Education - BVS-Above Knee Amputation Discharge Instructions?? Valuables and Belongings I fully understand and agree that [facility] accepts no responsibility for all my personal property including clothing, toilet articles, radios, jewelry, dentures, hearing aids, rings, money, or any other property that is in my possession or is brought to me after admission. I understand certain valuables may be placed in a hospital safe for a short period of time. I understand that the hospital is not liable for loss or damage due to accident, fire, or other natural occurrence while said property is in the safe. I accept full responsibility for any personal property that I keep with me, and will not hold the hospital responsible in case of loss or disappearance. I acknowledge that i have been encouraged to send valuables and belongings home. ?? Review of Valuable and Belonging List: With family Date for Pt to Sign Valuables/Belongings: 02/20/25 07:42:00 ?? Valuables & Belongings ?? Clothes Electronic devices Jewelry Monetary Items Personal devices Miscellaneous Medications (Valuables) Valuables at Bedside ? Moravian items ?? Valuables Sent Home ? Valuables Sent to Security ? Valuables Sent to Locker ? Other Discharge Information ? Case Management Discharge Plan?? Discharge Plan?? Discharge Agency Information?? Discharge Level of Care at Discharge: [facility] Care Facility Service Categories #1: Occupational Therapy, Physical Therapy, Fdc Discharge Nursing Homes/Rehab Facilities: [facility] Service Comments #1: You are being discharged to [facility] today at 11:30 am via ambulance. ?? Name of Person Notified of Transfer: HCP Laura and patient ?? Pulmonary Rehab Status?? Pulmonary Rehab Discharge Status?? Respiratory Rate: 17 br/min ? Common Emergency Awareness Tips IS IT A STROKE? Act FAST and Check for these signs: FACE Does the face look uneven? ARM Does one arm drift down? SPEECH Does their speech sound strange? TIME Call at any sign of stroke ?? Heart Attack Signs Chest discomfort: Most heart attacks involve discomfort in the center of the chest and lasts more than a few minutes, or goes away and comes back. It can feel like uncomfortable pressure, squeezing, fullness or pain. Discomfort in upper body: Symptoms can include pain or discomfort in one or both arms, back, neck, jaw or stomach. Shortness of breath: With or without discomfort. Other signs: Breaking out in a cold sweat, nausea, or lightheaded. Remember, MINUTES DO MATTER. If you experience any of these heart attack warning signs, call to get immediate medical attention! ?? Smoking can increase your chances of developing chronic health problems and can cause harmful effects to other family members in your house. If you smoke, you are strongly encouraged to quit. Please call [facility] Link at [phone] or [phone] or log in to [email or web address] for referrals to smoking cessation programs. ?? 328 Suicide & Crisis Lifeline is available 26/09 if you or someone you know needs to find a reason to keep living. By calling 830 you'll be connected to a skilled, trained counselor at a crisis center in your area. INPATIENT DISCHARGE INSTRUCTIONS SIGNATURE PAGE VARINDER WEBSTER Location:[facility] Registration Date and Time:02/14/2025 21:43 EST Primary Care Physician: Azalea Mancilla NP, Attending Physician: Mary Love MD, I VARINDER WEBSTER, have received the above patient education materials/instructions and have verbalized understanding. If ambulance or transport services are being used I further acknowledge being given a choice of service. ?? If you need to contact me, please call me at this number: . Patient/Survey Crew Chief Name: Patient/Survey Crew Chief Signature: Relationship to Patient: Witness Name/Signature: Date: * Kassandra Esposito RN: PERFORM Event Display: Patient Education Leaflets Authored Date: [id number] BVS-Above Knee Amputation Discharge Instructions ?? 41 Above Knee Amputation Post Operative Discharge Instructions ?? You are being discharged from the hospital.?? Here is information related to your condition to helpyou when you get home.?? In addition, you may have been given the [facility] heart and vascular patient education book.?? This book provides written information and instruction for you to review at home with your family.? Special Instructions Post Operative Discharge Care Instructions Bathing ??? No showering or tub baths until cleared by vascular surgeon. ?? Incision Care ??? Keep your incision clean and dry.?? Use only soap and water to cleanse the area around the incision.?? Once the incision is healed you may wash over the incision with a soft wash cloth and soap and water.? Avoid using perfumed soaps or body washes, lotions, creams, oils or ointments on your incision. This may irritate your incision and put you at risk for an infection. ??? Check your incision daily for drainage, redness, increased tenderness or edges pulling apart.?? Some bruising and discoloration is normal in the first week following surgery. ??? If your incision is still draining, you will learn how to apply dry clean dressings.? If you have steri strips on your incision, remove them on Post-Op Day #5. ?? Limb Elevation ??? You may experience some limb swelling following surgery.?? A stump bleach analyst will be ordered by your surgeon when appropriate. ?Elevate your limb as much as po ssible. ??? If you notice swelling, elevate your limb.?? If swelling continues or worsens call the vascular surgery office. ?? Activity ??? When appropriate physical therapy will be ordered.? It is important to continue to do the coughing and deep breathing exercises to help prevent breathing complications. ?? Driving ??? No driving until cleared by your surgeon. ??? Always wear a seat belt. ?? Sexual Relations ??? You may resume sexual activity as soon as you feel comfortable. ?? Emotions ??? It is common for people to feel more emotional or have difficulty concentrating or remembering after major surgery.?? These emotions may be the result of anesthesia, medications, not knowing whatto expect and difficulty doing simple tasks without becoming tired.? Amputee support groups are available. ?? Pain ??? You may have some muscle or incision discomfort. You will be given prescription medication for the pain and use it if you need it.? You may experience ???phantom?? pain in your limb which is expected, pain medication may help if not discuss with your surgeon. ?? Call the Vascular SURGEON? For any incision redness, swelling, tenderness, drainage, or odor. ??? For a temperature of 101.5 degrees F or greater. ??? For unusual or severe limb pain, loss of sensation or movement, coldness or discoloration of the limb, and any skin breakdown of the limb. ??? If you have trouble moving your bowels or have not had a bowel movement since discharge ?? Seek care IMMEDIATELY if? You have increased or unusual pain or numbness of limb, or sudden loss of movement in your limb. ??? Your limb becomes very cold, or turns pale or blue ??? You have trouble breathing all of a sudden ??? Your sutures or kasia come apart or separate ??? Your incision suddenly starts bleeding and/or your dressing becomes soaked with blood ?You have signs of a heart attack:?? CALL 911 right away. You may need an ambulance to take you to the hospital. Do not drive yourself or wait for your doctor to call you back.?? Signs of a heart attack may be: o Chest pain or discomfort, including squeezing, crushing, pressure, tightness or heaviness in the chest. o Pain or discomfort in your arms, shoulders, neck, back or jaw. o Indigestion, such as heartburn and upset stomach. o Nausea (feel sick to your stomach) and vomiting (throwing up). o Pain in your abdomen (stomach). o Shortness of breath. o Sweating, weakness or fainting (passing out). Follow-up ??? A follow up appointment should be made with your surgeon for 2 weeks following discharge.?? If you do not have an appointment scheduled already, make an appointment when you get home.?? Follow upcare is important; it is strongly encouraged for you to keep your appointment. You may have more than one appointment, one with your surgeon and one with your primary care doctor. ??? Be sure to see your primary care physician 1-2 weeks after hospital discharge. ??? Ask your doctor when you can return to work. If you have any questions, please call the vascular surgeons at [phone]. ?? Heart and Vascular Healthy Living You can make style changes that can help lower your risk for heart and vascular disease.?? The following information can help you get started or maintain your current lifestyle. Diet ? Eat a low fat, low cholesterol diet. ??? Eating 3 to 4 small meals daily may be better tolerated than 1-2 large meals daily ??? Limit caffeine and alcohol use ??? Limit the amount of salt in yourdiet Exercise ??? Routine regular or prescribed exercise is strongly encouraged. ??? Avoid strenuous exercise after meals Smoking ??? If you smoke, you are strongly encouraged to quit.? Smoking can increases blood pressure, decrease exercise tolerance and increase the tendency for blood to clot, decrease HDL (good) cholesterol and creates a higher risk for having a heart attack, stroke or other vascular events.? If you are ready to quit, please let us know; Referrals to smoking cessation programs are available. Lowering your cholesterol ??? Talk to your doctor about taking medicine for high cholesterol. Diet and exercise may not loweryour cholesterol enough. Cholesterol medicines may help prevent further cholesterol build up in thearteries. High blood pressure and diabetes ??? If you have high blood pressure or diabetes, continue with your prescribed treatments.?? These health problems if not controlled can put you at risk for having a heart attack, stroke or other vascular events. ?? Stress Stress may slow healing and cause illness later. Since it is hard to avoid stress, learn to controlit. Learn new ways to relax (deep breathing, relaxing muscles, meditation, or biofeedback). Talk toyour caregiver about things that upset you. ?? Medication Information Take all your medications as prescribed.?? Many medications have more than one name. Be sure you know the name of your medication.?? Call your physician if you have any questions after you get home.?? Keep a written list ([facility] medication card) of what medicines you take and when and why you take them. Bring the list of your medicines or the pill bottles when you see your caregivers. Learn why you take each medicine. Ask your caregiver for information about your medicine. Depending on your condition, you may have other medicines prescribed as part of your discharge plan of care.?? Some may include: ? Pain Medication:?? Pain medications may be prescribed after surgery.?? Controlling your painis important to help you heal and increase your activity level.?? One of the side effects of pain medication is constipation.?? If you are taking pain medication on a regular basis, it is important to also take a stool softener that is prescribed. Also, adding high fiber foods, fiber medicines and prune juice may help.? Antibiotics:?? You may be prescribed antibiotics following surgery.?? This medicine may be given to help you fight infection. It is important for you to finish the prescription. ??? DERIC inhibitors: These are medicines that keep your blood vessels relaxed and open. They help keep oxygen-rich blood flowing into your heart. These medicines may be used to treat high blood pressure and prevent your heart muscle from weakening. ??? Aldosterone Inhibitors: These medicines prevent scar tissue from forming in your heart.?? It also helps with eliminating extra salt and water.??? Angiotensin Receptor Blockers (ARB): These medicines lower blood pressure and prevent your heart muscle from weakening. These medicines are used for patients who can not tolerate DERIC Inhibitors. ??? Beta-blockers: These medicines keep your heart pumping strongly and regularly and may also loweryour blood pressure. Beta blockers lower blood pressure, prevent chest pain and irregular heart beat s. ??? Digoxin: This medicine keeps your heart rate slow if your heart is in an irregular rhythm.??Digoxin may improve activity tolerance as well.? Diuretics:?? These medicines help the heart work better by decreasing the extra fluid in your body.?? Getting rid of the extra fluid will help your heart to not work so hard.?? These medicines may need to be adjusted by your doctor. ??? Vasodilators: These medicines decrease the pressure in your arteries, especially in the vessels around your heart. ??? Anti-coagulants: These medicines help keep the blood from clotting in an artery, vein or the heart. Clots can block the blood flow to your heart muscle and cause a heart attack.?? Clots canalso block blood flow to your brain, causing a stroke. ??? Anti-platelets: Anti-platelet medicines, such as aspirin, keep platelets from sticking to a damaged part of your artery. Sticky platelets may cause a blockage in your artery and keep blood from going to your heart muscle. ??? Blood pressure (Anti-hypertensives): These medicines may be given to lower your blood pressure. Keeping your blood pressure under control protects your heart, lungs, brain, kidneys, and other organs. ??? Cholesterol lowering medicines: These help to lower cholesterol that causes coronary (heart) artery disease. ??? Diabetes medicines: These may be given to control the amount of sugar in your blood. It helps your body move the sugar from the blood to your cells, where it is needed for energy. ??? Nitroglycerin: This medicine may also be called nitro. Nitroglycerin opens the arteries to your heart so the heart gets more oxygen. Nitroglycerin can be given in an IV, by mouth, or put on your body as a patch or paste. ?? * Event Display: Provider Clarification Note Please click on pdf link to open report Patient Care team information Care Team Personnel Name: Cherelle Galo NP Position: [facility] Associate Professional Member Role: Primary Care Nurse Name: Angelia Oliva RN Position: S RN Member Role: Primary Care Nurse Name: Lashonda Hernandez RN Position: S RN Member Role: Primary Care Nurse Name: Azalea Mancilla NP Position: Reference Physician Member Role: PCP Address: [address] [place] [address] Telecom: Name: Josette Rust RN Position: S RN Member Role: Primary Care Nurse Care Team Related Persons Name: LAURA JACOBO Insurance Providers Guarantor name: [facility] Information #: 1 Payer: MEDICARE B Payer Identifier: LINDA Member Number: [id number] Group Number: NA Subscriber Identifier: [id number] Relationship to Subscriber: self Coverage Type: NA Coverage Verification Date: NA Telecom: LINDA Address: NA
[2025-02-26 10:18] LABS: MANUAL DIFF FLAG NO
--- OUTSIDE RECORDS SUMMARY | 2025-02-26 10:24 | XMS_ITS | Data Portability ---
Author Organization [facility] [employer] Address [address] [place] [address] Care Team Providers Care Security And Compliance Analyst Name Role Phone DAVE VICTOR Primary Care Provider [phone] DAVE VICTOR Referring Provider [phone] Assessment Encounter Date Assessment Date Assessment LastModified by Organization Details LastModified Time 12/10/2020 12/10/2020 IMPRESSION: ~November 2019 onset of forgetfulness noticed by daughter but not by patient, now with further worsening since May 2020. There is also gait imbalance. He has declined any investigation in May 2020 but he is now of a different opinion and ready to go forward. COGNITION Cognition exam has reflected at least mild cognitive dysfunction. The daughter and son now noticed worsening. He seems in need of their help for medication monitoring and for guidance during ADLs. Clinically, the scenario is at least mild dementia. The differential for cognitive dysfunction is wide including small stroke ~6 months ago as the onset seems sudden. As there is now slow worsening this is at most just part of the story but brain MRI is still indicated. The differential also includes alcoholic dementia, vascular and Alzheimers dementia. Metastatic disease is not excluded although unlikely given the amount of time since gastric cancer although the exact dates when the disease was active are uncertain. We will again try for diagnostic investigations. He is already on B12 replacement with shots. We will get blood work for other common/treatable metabolic issues. Vitamin E and copper were not ordered today. These will be ordered at a follow-up. Given the possibility that this is dementia, I offered donepezil GAIT Differential alcoholic cerebellar degeneration and active alcohol use. Ischemic disease is not excluded. There is no clear parkinsonism. He is using a cane since his most recent fall. At a follow-up I will address whether additional physical therapy is indicated. Safety net seems appropriately in place as detailed in the history above. Discussion across issues of diagnoses and management and associated chart review and management greater than 50% greater than 60 minutes PLAN Michael Morales December 10, 2020 Start donepezil (Aricept is the brand-name) 5 mg tablet, once every morning, with food. 30 capsules/11 refills Donepezil may occasionally cause stomach upset or diarrhea, dizziness, or, rarely, hallucinations. If side effects are mild, stay on medicine a few days as side effects often go away. If side effects are not mild, or do not go away, reduced the medication to the previous dose at which you did not have side effects. Watch for improvement that may occur in activities of daily living that have been affected by your problems with memory. If side effect are mild, stay on medicine a few days to see if side effects often go away. If side effects are not mild, or do not go away, stop the medication. [facility]/Tanya/Nelda lunain Brain MRI with and without contrast for forgetfulness, alcohol dependence context history of GI cancer. Please rule out metastasis and assess for hypothalamic/brain stem/cerebellar/ca llosal abnormality that might be associated with alcohol dependence. LABORATORIES vitamin D, treponemal antibodies, thyroid studies Follow-up afterwards with your daughter Kandace pereyra Not available 12/10/2020 09:36:22 01/12/2021 01/12/2021 IMPRESSION: ~November 2019 onset of forgetfulness noticed by daughter but not by patient, now with further worsening since May 2020. There is also gait imbalsaance, With December [address] head reflecting multifocal hemorrhage Data are reviewed LABORATORIES December 11, 2020 TSH 1.41, vitamin D 25.5, RPR nonreactive, all within normal range IMAGING Brain MRI with and without contrast, December 16, 2020, dictated indication: Fall and head trauma. Syncope. Dementia. Actual indication: For forgetfulness, alcohol dependence context history of GI cancer. Please assess for metastasis and assess for hypothalamic/brain stem/cerebellar/ca llosal abnormality that might be associated with alcohol dependence. Per dictation [facility]/[place] neur[facility] Dr. Kyra Miguel: Mild periventricular and subcortical T2 hyperintensities which are thought nonspecific. Right occipital encephalomalacia. Prominence of ventricles and sulci relative to biparietal superior sulcal crowding is thought nonspecific but normal pressure hydrocephalus is noted within the radiological differential. CT head January 08, 2021 without contrast in the context of emergency room visit after a presumed fall with a black eye: Per radiology dictation included within emergency room note: Bilateral frontoparietal and left temporal subarachnoid hemorrhage; possible right frontoparietal cortical contusion and left temporal subdural versus subarachnoid hemorrhage. We discussed that laboratories reflect no abnormalities on assays for correctable causes of cognitive impairment. We remember that he is already on B12 replacement. His daughter informs me that he is also on thiamine/vitamin B1. We discussed that vitamin D and copper are indicated to look for correctable abnormalities that might relate to his gait imbalance. She understands. She prefers that I mention this to primary care and that the laboratories be done by primary care. We discussed that brain MRI results reveal no abnormalities directly correlating with his cognitive decline or his gait abnormality. There is no indication of any metastasis that might be related to his history of cancer. There is right occipital encephalomalacia. This is in all likelihood The small stroke, now old, that the daughter reported occurred early in 2020. It may be affecting his left-sided vision. This is not a chief complaint. Brain MRI dictation also mentions some centrally prominent atrophy that in the right clinical circumstances would be consistent with normal pressure hydrocephalus. His gait abnormalities are not at all like those of normal pressure hydrocephalus which is a clinical diagnosis. He does not have normal pressure hydrocephalus. She had looked at the dictation and was wondering and is relieved. Separately, as a result of his fall, he has had CT head which showed multifocal hemorrhage. They stopped NSAIDs in the ER. He was not on aspirin. We discussed that the main implication of this going forward is that there should be optimal protection against falls. You should be monitored for using his cane (he refuses to use a walker). Should there be any worrisome subacute changes in mental status then there should be repeat CT head to look for worrisome hemorrhage from occult fall. PLAN Michael Morales January 12, 2021 Instructions for daughterKandace: Please discuss with primary care at your next visit about doing the following blood work: vitamin E, copper Deficiencies in either could further worsen his walking capability. He is at risk of deficiency, especially the vitamin E, given his alcohol consumption. Please speak with primary care about getting home health aide for your father so you can have respite as a caregiver. Please try to encourage his use of his cane as much as possible especially by putting the cane next to his bed for use if he gets up from sleep. Please try to minimize your father's alcohol as much as you can. If he has worrisome reduced level of functioning CT head at an emergency room should be considered as there is a possibility that he has fallen and you have not noticed and that there is a new bleed in his head that is causing this problem. Your daughter decides that you and she wish to follow-up as needed for any neurological issues. COGNITION Cognition exam has reflected at least mild cognitive dysfunction. The daughter and son The differential for cognitive dysfunction is wide including small stroke ~6 months ago as the onset seems sudden. As there is now slow worsening this is at most just part of the story but brain MRI is still indicated. The differential also includes alcoholic dementia, vascular and Alzheimers dementia. Metastatic disease is not excluded although unlikely given the amount of time since gastric cancer although the exact dates when the disease was active are uncertain. GAIT Differential alcoholic cerebellar degeneration and active alcohol use. Ischemic disease is not excluded. There is no clear parkinsonism. He is using a cane since his most recent fall. At a follow-up I will address whether additional physical therapy is indicated. Safety net seems appropriately in place as detailed in the history above. His daughter emphasizes that she is the official healthcare proxy. She requests that anyone who calls who is not on his HIPAA form (currently this is only her) not be given any information on his health status. PLAN Michael Morales January 12, 2021 Instructions for daughterKandace: Please discuss with primary care at your next visit about doing the following blood work: vitamin E, copper Deficiencies in either could further worsen his walking capability. He is at risk of deficiency, especially the vitamin E, given his alcohol consumption. Please speak with primary care about getting home health aide for your father so you can have respite as a caregiver. Please try to minimize your father's alcohol as much as you can. Follow-up as needed, with your daughter Kandace pereyra Not available 01/12/2021 19:41:20 Plan of Treatment Reminders Order Date Submit Date Provider Last Modified By Organization Details Last Modified Time Details Appointments None recorded. Lab TSH + free T4, serum - E07.9 2020 021 [facility], [address] [place], [address], 19:42:06 vitamin D, 25-hydroxy, total, serum - E55.9 2020 [facility], [address] [place], [address], 13:42:27 RPR (rapid plasma reagin), serum - M32.9 for Coagulopaht y panel, PLEASE DO NOT follow syphillis testing protocol 2020 [facility], [address] [place], [address], 13:42:27 Referral None recorded. Procedures None recorded. Surgeries None recorded. Imaging MRI, brain, w/wo contrast - for forgetfulne ss, alcohol dependence context history of GI cancer. Please assess for metastasis and assess for hypothalami c/brainstem /cerebellar /callosal abnormality that might be associated with alcohol dependence. 2020 [facility] ([facility]), [address], [place], [address], 13:43:41 Medication Orders donepezil 5 mg tablet 2020 [facility] [place] [address] ([facility]), [address], [place], [id number], 09:38:41 Patient TargetsNo targets recorded. Patient InstructionsNo instructions recorded. Reason for Referral None Reported. Results Created Date Observation Date Name Description Value Unit Range Abnormal Flag Note LastModifiedBy Organization Detail LastModifiedTime 12/17/19 21 12/16/2020 MRI, brain + brain stem, w/wo contr ast [facility] Access ion Number : [id number] Name: Carmen, Michael Medica l Record Number : [id number] Date of : 1940 Date of Exam: 2020 Referr ing Physic sonido: Galdino Burgess MD Neurol [facility] [address] [place] [address] Exam: MR Brain (C-/C+ ) CPT 40966 Room Descri ption: [place] Siem Espr 2 1.5 INDICA TION: Fall and head trauma . Syncop e. Radha ia. TECHNI QUE: Multip lanar multis equenc e MRI of the brain was obtain ed before and after the admini strati on of 15 mL of Dotare m. COMPAR DORA: No prior. FINDIN GS: There are mild T2 hyperi ntensi ties in the perive ntricu lar and subcor tical white matter which are nonspe cific. There is enceph alomal acia in the right occipi linda lobe. The ventri cles and sulci are modera tely enlarg ed. There is appare nt fullne ss of the gyri with narrow ing of the sulci in the bipari etal region superi lakes[place]. The midlin e struct ures, main vascul ar flow voids, and basal cister ns are within normal limits . There is no acute/ subacu te infarc t. There is no hemorr jimbo. No mass or abnorm al enhanc ement is identi fied. The orbits and globes are unrema rkable with eviden ce of bilate ral lens replac ements . There is mild to modera te mucosa l thicke heath of the parana rios sinuse s. The mastoi d air cells are clear. The extrac ranial soft tissue s, calvar ium, and skull base are unrema rkable . IMPRES CLOTILDE: No acute/ subacu te infarc t, hemorr jimbo, mass, or abnorm al enhanc ement. Mild nonspe cific white matter T2 hyperi ntensi ties probab ly sequel a of chroni c microa ngiopa thy. Enceph alomal acia of the right occipi linda lobe. Promin ence of the ventri cles and sulci with relati ve crowdi ng of the sulci in the superi or bipari etal sulci. While this is nonspe cific, clinic al correl ation to exclud e normal pressu re hydroc ephalu s is recomm ended. Electr onical ly Signed By: Kyra Miguel MD [email or web address] [facility] ([facility]) [address] [place], [address], 12/17/2020 09:24:23 12/17/19 21 12/16/2020 MRI, brain , w/wo contr ast No observ ation record ed. [email or web address] [facility] ([facility]) [address] [place], [address], 12/17/2020 09:23:23 Result Notes Documentation Provider Name and Address Organization Details Recorded Time Mri, Brain + Brain Stem, W/wo Contrast : [facility] Accession Number: [id number] Patient Name: Michael Morales Date of : 1940 Date of Exam: 12-16-2020 Referring Physician: Juanpablo Burgess MD Neurology- [facility] [address] [place] [address] Exam: MR Brain (C-/C+) CPT 49552 Room Description: [facility] 2 1.5 INDICATION: Fall and head trauma. Syncope. Dementia. TECHNIQUE: Multiplanar multisequence MRI of the brain was obtained before and after the administration of 15 mL of Dotarem. COMPARISON: No prior. FINDINGS: There are mild T2 hyperintensities in the periventricular and subcortical white matter which are nonspecific. There is encephalomalacia in the right occipital lobe. The ventricles and sulci are moderately enlarged. There is apparent fullness of the gyri with narrowing of the sulci in the biparietal region superiorly. The midline structures, main vascular flow voids, and basal cisterns are within normal limits. There is no acute/subacute infarct. There is no hemorrhage. No mass or abnormal enhancement is identified. The orbits and globes are unremarkable with evidence of bilateral lens replacements. There is mild to moderate mucosal thickening of the paranasal sinuses. The mastoid air cells are clear. The extracranial soft tissues, calvarium, and skull base are unremarkable. IMPRESSION: No acute/subacute infarct, hemorrhage, mass, or abnormal enhancement. Mild nonspecific white matter T2 hyperintensities probably sequela of chronic microangiopathy. Encephalomalacia of the right occipital lobe. Prominence of the ventricles and sulci with relative crowding of the sulci in the superior biparietal sulci. While this is nonspecific, clinical correlation to exclude normal pressure hydrocephalus is recommended. Electronically Signed By: [email or web address] 12/17/2020 09:24:23 Problems Name Problem SNOMED Code Status Onset Date Resolution Date Notes Provider Name and Address Organization Details Recorded Time Alzheimer 's disease 00845080 Active 021 g30.1 [email or web address] 11/17/2020 11:34:50 Problem Notes None recorded. Procedures Surgical History Date Name Laterality Status Provider Name and Address Organization Details Recorded Time 01/12/2021 DATA REVIEW completed Juanpablo Burgess MD [address] [place] [address] [place], [address], [facility] 01/12/2021 19:25:12 Imaging Results None recorded. Procedure Notes None recorded. Medical Equipment None Reported. Medications Name Sig Start Date Stop Date Status Note LastModified by Organization Details LastModified Time donepezil 5 mg tablet Take 1 tablet every day by oral route with meals. active Not Available Not Available No t Available metformin ER 500 mg tablet,exte nded release 24 hr active Not Available Not Available Not Available Vitals None Recorded Social History None recorded. Functional Status None recorded. Mental Status None recorded. Family History Nothing Reported. Medical History No medical history recorded. Past Encounters Encounter ID Performer Location Encounter Start Date Encounter Closed Date Diagnosis/Indication Diagnosis SNOMED-CT Code Diagnosis ICD10 Code Diagnosis IMO Codes Diagnosis Note [id number] Juanpablo Burgess MD [address] [place] [id number] 12/10/2020 08:52:03 12/10/2020 10:35:00 Alzheimer's disease 64606038 G30.1 Vascular dementia 530422 004 F01.50 Lewy body disease 705923 02 G31.83 Abnormal gait 14721846 R 26.81 Alcoholism 9923455 F10.2 0 [id number] Juanpablo Burgess MD [address] [place] [address] 01/12/2021 14:21:55 01/13/2021 08:27:11 Alzheimer's disease 97961097 G30.1 Vascular dementia 752673 004 F01.50 Lewy body disease 813174 02 G31.83 Abnormal gait 78237416 R 26.81 Alcoholism 8683463 F10.2 0 Health Concerns Section Related Observation LastModified by Organization Detai ls LastModified Time None Recorded Concern Status LastModified by Organization Details LastModified Time None Recorded Advance Directives Directive None Recorded Payers Insurance Date Sequence Insurance Name Policy Number Policy Serna Covered Member ID Serna Member ID Guarantor Name 01/12/2021 1 [place]ICARE [place] [employer] Michael Faby Carmen [id number] Michael Morales Notes Date Note Type Note Provider Name and Address Organization Details Recorded Time 12/10/2020 text/html Follow-up of problems with confusion, falls and tremor. Past history includes type 2 diabetes, hyperlipidemia, alcohol dependence with cessation late March 2020 per daughter, pulmonary tuberculosis, esophageal and gastric cancer, surgery early , B12 deficiency treated by injection since then. He is accompanied by his daughter, Kandace who helps with history and translation. Since May 07, 2020 initial neurology consultation, he has continued to live alone. He has worsened so that he is calling more frequently to his son and daughter for orientation of what appointments he might have or what is happening during the day. His son and daughter continue dividing up managing his medications and transportation. The patient continues drinking alcohol. . Presenting symptomatology is reviewed from initial neurology consultation May 07, 2020:He notices no forgetfulness or problems thinking. His daughter started noticing forgetfulness in her father about 6 months ago, sometime in the middle of 2019. She or someone would tell him something and then 5 minutes later he has forgotten. She has noticed no worsening. It fluctuates a little but not a lot from day-to-day. He has had trouble walking since late 2018 with his first fall early 2019. He has not had any fractures. His daughter feels she falls only when he is drunk. She has seen no worsening since she first noticed his gait imbalance. He has started using a cane since a fall ~3 weeks ago and has not fallen since then. He has stopped drinking since that fall 3 weeks ago. He lives on his own. She monitors his morning medication and her brother monitors his evening medication, all starting ~2 months ago when he first started taking medicine for newly diagnosed diabetes and for iron deficiency anemia. He hasnt driven since early 2019 because of vision problems. He did not stop because of any confusion issues. He is independent with his back account although for official reasons over the years his son has access to his account. His son has been monitoring his finances for a year or more. His daughter does not know why and does not think it is because her brother noticed forgetfulness earlier than she did. He takes kzxt-upc-apknzba medication to get to sleep. He has no hallucinations. His daughter thinks that he is a little depressed since the ramírez virus epidemic has forced him to be indoors more. He says he is not depressed, just bored. Juanpablo Burgess MD [address] [place] [address] [place], [phone], [facility] 12/10/2020 09:40:01 01/12/2021 text/html Follow-up of problems with confusion, falls and tremor. Past history includes type 2 diabetes, hyperlipidemia, alcohol dependence with cessation late March 2020 per daughter, pulmonary tuberculosis, esophageal and gastric cancer, surgery early , B12 deficiency treated by injection since then. He is accompanied by his daughter, Kandace who helps with history and translation. Since November 10, 2020 neurology follow-up encounter, he has sustained a fall, had an emergency room visit, and they have been told that there has been a small bleed. Family knew he had a fall because he had a black eye. They know no other details as he had continued living alone. NSAIDs have been discontinued. He was not taking any aspirin. Subsequently, his house has been in disarray. Recently his daughter Kandace found him in the dark hiding under his bed. Since then family has been with him daily 26/09. Family continues to divide up managing his medication, transportation and other ADLs. He continues drinking alcohol. There is some family discord on coverage of being with the patient. In this context, Kandace is looking into power of trust and estates attorney and being the sole guardian. Presenting symptomatology is reviewed from initial neurology consultation May 07, 2020:He notices no forgetfulness or problems thinking. His daughter started noticing forgetfulness in her father about 6 months ago, sometime in the middle of 2019. She or someone would tell him something and then 5 minutes later he has forgotten. She has noticed no worsening. It fluctuates a little but not a lot from day-to-day. He has had trouble walking since late 2018 with his first fall early 2019. He has not had any fractures. His daughter feels she falls only when he is drunk. She has seen no worsening since she first noticed his gait imbalance. He has started using a cane since a fall ~3 weeks ago and has not fallen since then. He has stopped drinking since that fall 3 weeks ago. He lives on his own. She monitors his morning medication and her brother monitors his evening medication, all starting ~2 months ago when he first started taking medicine for newly diagnosed diabetes and for iron deficiency anemia. He hasnt driven since early 2019 because of vision problems. He did not stop because of any confusion issues. He is independent with his back account although for official reasons over the years his son has access to his account. His son has been monitoring his finances for a year or more. His daughter does not know why and does not think it is because her brother noticed forgetfulness earlier than she did. He takes oijq-zff-fiheuyg medication to get to sleep. He has no hallucinations. His daughter thinks that he is a little depressed since the ramírez virus epidemic has forced him to be indoors more. He says he is not depressed, just bored. Juanpablo Burgess MD [address] [place] [address] [place], [phone], [facility] 01/12/2021 19:59:05
[2025-02-26 10:44] LABS: Hematocrit 36.3 % (42.0-52.0); Hemoglobin 10.9 g/dl (14.0-18.0); Imm Gran Abs Auto 0.14 X10*3/uL (0.00-0.03); Imm Gran Pct Auto 2.8 % (0.0-0.4); Lymphocytes Absolute Auto 0.8 X10*3/uL (1.2-4.9); Mean Corpuscular HGB Conc 30.0 g/dl (31.0-36.0); Mean Corpuscular Hemoglobin 29.0 pg (27.0-33.0); Mean Corpuscular Volume 96.5 fL (80.0-98.0); NRBC Abs Auto 0.000 X10*3/uL (0.0-0.012); NRBC Pct Auto 0.0 /100WBC (0.0-0.2); Platelet Count 378 X10*3/uL (160-400); Red Blood Count 3.76 X10*6/uL (4.60-5.80); White Blood Count 5.1 X10*3/uL (4.8-10.8)
[2025-02-26 10:54] LABS: Alanine Aminotransferase 35 U/L (0-40); Albumin Level 3.2 g/dL (3.5-5.0); Alkaline Phosphatase 96 U/L (39-117); Anion Gap 15 (12-20); Aspartate Amino Transferase 36 U/L (5-37); Blood Urea Nitrogen 27 mg/dL (9-16); Calcium 8.2 mg/dL (8.4-10.2); Carbon Dioxide 17 mmol/L (22-29); Chloride 112 mmol/L (96-108); Estimated Glomerular Filt Rate > 60; Potassium 3.7 mmol/L (3.3-5.1); Sodium 140 mmol/L (135-145); Total Protein 6.6 g/dL (6.5-8.0)
== END 2025-02-26 10:16 | disposition home or self-care (01) ==
LOC: HO.WMHL 10:15
PROVIDERS: Visit Provider Pediatrics
DX: E11.9 Type 2 diabetes mellitus without complications (principal); D64.9 Anemia, unspecified
CPT/HCPCS: 36415; 80053; 85025